=== PATIENT | female | born 1955 | race Caucasian/White ===

== ENCOUNTER 2018-09-18 12:33 | Outpatient (REF) | payer BC, SELFPAY ==
--- NOTE | 2018-09-18 09:36 | PAPFT_PTH ---
PATIENT: Chery Prescott LOC: [facility] U#:[id number] AGE/SX: 63/F ROOM: RE09/18/[address]: Meagan Christine : 1955 BED: DIS: 09/18/2018 SPEC #: [id number] RECD: 09/19/18 13:03 STATUS: MAURICIO ISSA #: [id number] WILI: 09/18/18 09:[address]: Meagan Christine DEPT: [facility], [facility] Cytology RECD BY: Caro Dahl Tissues: 1 - CX/ENDOCX FOR PAP SMEARS Procedures: PAP THIN PREP/UVM Screening HPV DNA PROBE Comments: [id number]
== END 2018-09-18 12:53 ==
LOC: NCHCN 12:33
PROVIDERS: PCP Physician Assistant Medical; Visit Provider Physician Assistant Medical
DX: Z12.4 Encounter for screening for malignant neoplasm of cervix (principal); Z11.51 Encounter for screening for human papillomavirus (HPV)
CPT/HCPCS: 88142; 87624

== ENCOUNTER 2018-10-03 00:48 | Outpatient (CLI) | payer BC, SELFPAY ==
--- NOTE | 2018-10-03 07:55 | DI.MAMMO_ITS ---
SYMPTOM/DIAGNOSIS: SCREENING, Z12.31, [facility], Z00.00 MAMMOGRAMS: Mammograms were interpreted according to the usual protocol including computer analysis with CAD system, tomosynthesis and C view imaging. Comparison is made with exams from 4057-8864. The breasts are composed of heterogeneously dense fibroglandular tissue, breast density, Category C. No suspicious masses or suspicious microcalcifications are seen. There has been no significant change. IMPRESSION: Category 1, negative mammogram. Yearly screening mammography is recommended. [facility] ASSESSMENT OF FINDINGS: Negative. Category 1. Patient will receive a letter notifying them of these results. Bi-RADS category C. The breasts are heterogeneously dense, which may obscure small masses.
== END 2018-10-03 01:08 ==
PROVIDERS: PCP Physician Assistant Medical; Visit Provider Physician Assistant Medical
DX: Z00.00 Encounter for general adult medical examination without abnormal findings (principal); Z12.31 Encounter for screening mammogram for malignant neoplasm of breast
CPT/HCPCS: 77063; 77067

== ENCOUNTER 2018-10-03 01:46 | Outpatient (CLI) | payer BC, SELFPAY ==
[2018-10-03 08:49] LABS: ALT 26 U/L (12-78); AST 20 U/L (15-37); Albumin 3.7 g/dL (3.4-5.0); Alkaline Phosphatase 79 U/L (46-116); Anion Gap 5.9 mmol/L (3-11); Bilirubin, Total 0.6 mg/dL (0.2-1.0); CO2 30.1 mmol/L (21.0-32.0); CREATININE 0.79 mg/dL (0.55-1.02); Calcium 8.6 mg/dL (8.5-10.1); Calculated LDL 171; Chloride 104 mmol/L (98-107); Cholesterol 253 mg/dL (50-200); Glucose 95 mg/dL (70-100); HDL Cholesterol 64 mg/dL (40-60); Potassium 4.9 mmol/L (3.5-5.1); Sodium 140 mmol/L (136-145); Triglyceride 94 mg/dL (30-150)
[2018-10-03 09:08] LABS: BUN 30 mg/dL (7-18)
== END 2018-10-03 02:06 ==
PROVIDERS: PCP Physician Assistant Medical; Visit Provider Physician Assistant Medical
DX: Z00.00 Encounter for general adult medical examination without abnormal findings (principal); Z13.220 Encounter for screening for lipoid disorders; Z13.228 Encounter for screening for other metabolic disorders
CPT/HCPCS: 36415; 80053; 80061; 83721

== ENCOUNTER 2018-10-30 01:50 | Outpatient (CLI) | payer BC, SELFPAY ==
--- NOTE | 2018-10-30 09:00 | NS.NUTBLAN_ITS ---
DESCRIPTION: Jessica Prescott presents for nutrition consult for hypercholesterolemia. Total Cholesterol 253; HDL 64 LDL 171 Jessica reports stable weight even when she quit smoking and through menopause. She eats preventatively fish oil, seeds, nuts, whole grains; rarely eats eggs. She has 1/2 sandwich or pretzels for lunch; salad and protein for supper. She does not like fruit, beef or pork. She has intestinal problems with corn and dairy products and thus rarely eats cheese. Physical Activity includes managing her house and work by mowing and weed wacking herself. She denies stress; takes great sanchez in her grandchildren. ASSESSMENT/INTERVENTION: Discussed cardiovascular risk factors for heart disease and sources of cholesterol and saturated fats. She is already having foods that are high in omega fatty acids; she eats minimal sugar and she is complimented for her prevention efforts. Explained benefits of regular physical activity in decreasing heart disease risks. Reviewed DASH diet for heart disease prevention. Jessica has healthy lifestyle for prevention of heart disease. PLAN: SHe will continue with her current regimen and have increased awareness of the foods that are most beneficial.
== END 2018-10-30 02:10 ==
PROVIDERS: PCP Physician Assistant Medical; Visit Provider Dietitian, Registered
DX: E78.5 Hyperlipidemia, unspecified (principal); Z71.3 Dietary counseling and surveillance
CPT/HCPCS: 97802

== ENCOUNTER 2019-11-01 02:42 | Outpatient (CLI) | payer OTHER, SELFPAY ==
[2019-11-01 09:04] LABS: ALT 30 U/L (14-59); AST 25 U/L (15-37); Alkaline Phosphatase 61 U/L (46-116); Anion Gap 6.4 mmol/L (3-11); BUN 30 mg/dL (7-18); Bilirubin, Total 0.4 mg/dL (0.2-1.0); CO2 30.6 mmol/L (21.0-32.0); CREATININE 0.88 mg/dL (0.55-1.02); Calcium 9.2 mg/dL (8.5-10.1); Calculated LDL 181 mg/dL (<100); Chloride 104 mmol/L (98-107); Cholesterol 267 mg/dL (<200); Glucose 92 mg/dL (74-106); HDL Cholesterol 60 mg/dL (40-60); Potassium 4.5 mmol/L (3.5-5.1); Sodium 141 mmol/L (136-145); Total Protein 7.2 g/dL (6.4-8.2); Triglyceride 134 mg/dL (<150)
== END 2019-11-01 03:02 ==
PROVIDERS: PCP Physician Assistant Medical; Visit Provider Physician Assistant Medical
DX: E78.5 Hyperlipidemia, unspecified (principal); I10 Essential (primary) hypertension
CPT/HCPCS: 36415; 80053; 80061

== ENCOUNTER 2019-11-22 01:19 | Outpatient (CLI) | payer OTHER, SELFPAY ==
--- NOTE | 2019-11-22 16:23 | DI.MAMMO_ITS ---
EXAM: MG MAMMO SCREENING CLINICAL HISTORY: SCREENING, Z12.39,[facility],Z00.00 TECHNIQUE: Mammograms were interpreted according to the usual protocol including computer analysis w [employer] CAD system, tomosynthesis and C-view imaging. COMPARISON: FINDINGS: The breasts heterogeneously dense. No dominant mass clumped microcalcification is identified in eith er breast. The current examination is compared with previous examinations including September 2018 and ere has been no gross interval change in appearance in comparison with the prior studies. IMPRESSION: No specific evidence of malignancy at this time. Routine screening examinations are suggested at yea rly intervals due to the family history of breast carcinoma. Category: BI-RADS Cat 1 - Negative Breast Density - Category C - Heterogeneously dense
== END 2019-11-22 01:39 ==
PROVIDERS: PCP Physician Assistant Medical; Visit Provider Physician Assistant Medical
DX: Z12.31 Encounter for screening mammogram for malignant neoplasm of breast (principal); Z00.00 Encounter for general adult medical examination without abnormal findings; R92.2 Inconclusive mammogram
CPT/HCPCS: 77063; 77067

== ENCOUNTER 2019-11-28 02:07 | Outpatient (CLI) | payer OTHER, SELFPAY ==
--- NOTE | 2019-11-28 | DI.DEXA_ITS ---
EXAM: XR DEXA BONE DENSITY W/WO EMRE CLINICAL HISTORY: [facility],Z00.00 SCREENING FOR OSTEOPOROSIS IN POSTMENOPAUSAL,Z78 TECHNIQUE: COMPARISON: DX DEXA BONE DENSITY WITH EMRE from 07/22/2010 FINDINGS: Lateral Spine Image: Unremarkable. No compression deformities identified. Left hip: Total T-Score: -2.0. Compared with -1.4 on the prior examination. Total Z-Score: -0.8. T- and Z-scores: Findings consistent with osteopenia and increased fracture risk. Lumbar Spine: Total T-Score: 0.1. Compared with -0.6 on the prior examination. Total Z-Score: 1.8. T- and Z-scores: Within normal limits. IMPRESSION: Osteopenia in the left hip.
== END 2019-11-28 02:27 ==
PROVIDERS: PCP Physician Assistant Medical; Visit Provider Physician Assistant Medical
DX: M85.88 Other specified disorders of bone density and structure, other site (principal); Z78.0 Asymptomatic menopausal state; Z00.00 Encounter for general adult medical examination without abnormal findings
CPT/HCPCS: 77080

== ENCOUNTER 2020-01-28 12:00 | Outpatient (REF) | payer OTHER, SELFPAY ==
[2020-01-28 19:20] LABS: ALT 38 U/L (14-59); AST 26 U/L (15-37); Albumin 4.1 g/dL (3.4-5.0); Alkaline Phosphatase 63 U/L (46-116); Anion Gap 7.9 mmol/L (3-11); BUN 26 mg/dL (7-18); Bilirubin, Total 0.6 mg/dL (0.2-1.0); CO2 30.1 mmol/L (21.0-32.0); CREATININE 0.76 mg/dL (0.55-1.02); Calcium 9.1 mg/dL (8.5-10.1); Calculated LDL 111 mg/dL (<100); Chloride 103 mmol/L (98-107); Cholesterol 204 mg/dL (<200); Glucose 98 mg/dL (74-106); HDL Cholesterol 79 mg/dL (40-60); Potassium 4.8 mmol/L (3.5-5.1); Sodium 141 mmol/L (136-145); Total Protein 7.2 g/dL (6.4-8.2); Triglyceride 70 mg/dL (<150)
== END 2020-01-28 12:20 ==
LOC: NCHCN 12:00
PROVIDERS: PCP Physician Assistant Medical; Visit Provider Physician Assistant Medical
DX: E78.5 Hyperlipidemia, unspecified (principal)
CPT/HCPCS: 80053; 80061

== ENCOUNTER 2020-10-29 18:50 | Outpatient (REF) | payer OTHER, SELFPAY ==
--- NOTE | 2020-10-29 17:45 | PAPFT_PTH ---
PATIENT: Chery Prescott LOC: [facility] U#:[id number] AGE/SX: 65/F ROOM: RE10/29/[address]: Meagan Christine : 1955 BED: DIS: 10/29/2020 SPEC #: [id number] RECD: 10/30/20 12:46 STATUS: MAURICIO RELiz #: [id number] WILI: 10/29/20 17:[address]: Meagan Christine DEPT: [facility] Cytology RECD BY: Caro Dahl Tissues: 1 - CX/ENDOCX FOR PAP SMEARS Procedures: PAP THIN PREP/UVM Screening HPV DNA PROBE Comments: [id number]
== END 2020-10-29 18:51 | disposition home or self-care (01) ==
LOC: NCHCN 18:50
PROVIDERS: PCP Physician Assistant Medical; Visit Provider Physician Assistant Medical
DX: Z01.419 Encounter for gynecological examination (general) (routine) without abnormal findings (principal); Z12.4 Encounter for screening for malignant neoplasm of cervix; Z11.51 Encounter for screening for human papillomavirus (HPV); R87.810 Cervical high risk human papillomavirus (HPV) DNA test positive
CPT/HCPCS: 88142; 87624

== ENCOUNTER 2020-11-19 02:29 | Outpatient (CLI) | payer OTHER, SELFPAY ==
--- NOTE | 2020-11-19 | DI.MAMMO_ITS ---
Exam(s) MAMMO SCREENING EXAM: MAMMO SCREENING CLINICAL HISTORY: SCREENING, [facility],Z00.00. TECHNIQUE: Bilateral full field digital CC and MLO mammographic images were obtained with 3D tomosyn thesis and utilizing computer aided detection (CAD). COMPARISON: Prior mammograms dating back to 2011, the most recent being November 2019. Significant family history. Her sister was diagnosed with breast cancer. FINDINGS: The fibroglandular tissue pattern is again noted be moderately dense, this decreasing the sensitivity of the mammogram for finding in underlying lesions. There are no new obvious spiculated masses nor malignant appearing microcalcification groups. There is no significant architectural distortion nor skin thickening-retraction. IMPRESSION: Dense bilateral fibroglandular tissue. No obvious radiographic evidence of malignancy nor significan t change compared to prior studies listed above. BI-RADS Category 1 - Negative Breast Density - Category C - Heterogeneously dense Breast density Category C or D implies that the patient has dense breast tissue. Dense breast tissue can make it harder to find cancer on a mammogram. Dense breast tissue is also associated with an incr eased risk of breast cancer. This information about the result of the mammogram report was provided to the patient to raise their awareness. Use this report when you speak with the patient about their risks for breast cancer, which includes their family history. At that time, you may recommend additional screening tests (Ultrasoun d or MRI) as these tests may add significant information. A negative radiographic report should not delay biopsy if a dominant or clinically suspicious mass is present. Up to ten percent of cancers are not identified on mammography. A negative report may reinforce clinical impression. Adenosis and dense breasts may obscure an underlying neoplasm. False positive reports average 6 to 10%. Patient will receive a letter notifying them of these results.
== END 2020-11-19 02:49 ==
LOC: DI 02:29
PROVIDERS: PCP Physician Assistant Medical; Visit Provider Physician Assistant Medical
DX: Z12.31 Encounter for screening mammogram for malignant neoplasm of breast (principal)
CPT/HCPCS: 77063; 77067

== ENCOUNTER 2020-11-19 03:22 | Outpatient (CLI) | payer OTHER, SELFPAY ==
[2020-11-19 08:13] LABS: ALT 53 U/L (14-59); AST 29 U/L (15-37); Albumin 4.1 g/dL (3.4-5.0); Alkaline Phosphatase 63 U/L (46-116); Anion Gap 7.9 mmol/L (3-11); BUN 35 mg/dL (7-18); Bilirubin, Total 0.4 mg/dL (0.2-1.0); CO2 29.1 mmol/L (21.0-32.0); Calcium 9.3 mg/dL (8.5-10.1); Calculated LDL 138 mg/dL (<100); Chloride 103 mmol/L (98-107); Cholesterol 231 mg/dL (<200); Estimated GFR 55.47 (mL/min/1.73m2); Glucose 93 mg/dL (74-106); HDL Cholesterol 75 mg/dL (40-60); Potassium 4.7 mmol/L (3.5-5.1); Sodium 140 mmol/L (136-145); Total Protein 7.1 g/dL (6.4-8.2); Triglyceride 91 mg/dL (<150)
[2020-11-20 09:40] LABS: Hepatitis C Ab w Rflx HCV PCR Negative (Negative)
== END 2020-11-19 03:23 | disposition home or self-care (01) ==
LOC: LBO 03:22
PROVIDERS: PCP Physician Assistant Medical; Visit Provider Physician Assistant Medical
DX: E78.5 Hyperlipidemia, unspecified (principal); I10 Essential (primary) hypertension
CPT/HCPCS: 36415; 80053; 80061; 86803

== ENCOUNTER → 2021-01-28 03:09 | Outpatient (CLI) | payer MEDICARE, SELFPAY ==
--- NOTE | 2021-01-28 | DI.MRI_ITS ---
Exam(s) MR CERVICAL SPINE WO EXAM: MR CERVICAL SPINE WO CLINICAL HISTORY: CERVICAL SPONDYLOSIS, M47.812 TECHNIQUE: Multiplanar multisequence MRI of the cervical spine was performed without intravenous con trast. COMPARISON: CR CERV SP.WITH OBL OR FLEX/EXT from 04/03/2014 CR CERV SP.WITH OBL OR FLEX/EXT from 04/03/2014 FINDINGS: CERVICOMEDULLARY JUNCTION: Intact with no evidence of cerebellar tonsillar ectopia. No obvious abnor mality of the odontoid process. No evidence of Chiari 1 malformation. CERVICAL SPINAL CORD: There is no abnormal signal in the cervical spinal cord and no evidence of foca l cord atrophy nor focal cord swelling. OSSEOUS:There are no cervical fractures evident. No significant osseous lesions in the cervical vert ebrae. Cervical curvature is maintained. INDIVIDUAL LEVELS: C2-3: No disc herniation nor central canal stenosis. No foraminal stenosis. No facet arthropathy. C3-4: Mild decreased disc height. Bilateral small Luschka joint osteophytes. Annular bulging but wi thout a dominant disc herniation. Central canal dimensions are lower normal. No significant foramin al stenosis nor significant facet arthropathy. There is partial fusion of the left facet joint anter ior aspect. C4-5: Normal disc height. No dominant disc herniation. Central canal dimensions are within normal l imits.Right facet joint appears unremarkable but there is significant degenerative changes in the lef t facet joint with some foraminal stenosis on the left side. No foraminal stenosis on the right side . C5-6: Mild disc space narrowing. No disc herniation. No central canal stenosis. No foraminal steno sis. Mild degenerative changes in the left facet joint. No obvious degenerative changes in the righ t facet joint. C6-7: This level exhibits advanced chronic disc space narrowing and anterior osseous lipping. Fruit [employer] iorly there is annular bulging with a small posterolateral right disc protrusion. There is slight co mpression of the thecal sac at this level. Right facet unremarkable. Mild degenerative changes in t he left facet joint. There is mild bilateral foraminal stenosis C7-T1: No disc herniation nor central canal stenosis. No facet arthropathy.No foraminal stenosis. IMPRESSION: 1. At C6-7 level there is advanced disc space narrowing and small posterolateral right disc protrusio n. 2. There is no prominent central canal stenosis in the cervical spine but there is some asymmetric le ft-sided foraminal stenosis evident at C4-5 and C5-6 levels, this related to degenerative changes in the left facet joint at these 2 levels. Less degenerative change in the right facet joints at these 2 levels. 3. Cervical curvature is maintained. There is no abnormal signal in the cervical spinal cord. No ev idence of focal cord swelling nor focal cord atrophy. DATA REPOSITORY:
== END ==
PROVIDERS: PCP Physician Assistant Medical; Visit Provider Physician Assistant Medical
DX: M47.812 Spondylosis without myelopathy or radiculopathy, cervical region (principal); M48.02 Spinal stenosis, cervical region; M50.223 Other cervical disc displacement at C6-C7 level; M50.321 Other cervical disc degeneration at C4-C5 level; M50.322 Other cervical disc degeneration at C5-C6 level
CPT/HCPCS: 72141

== ENCOUNTER 2021-02-25 02:41 | Outpatient (CLI) | payer MEDICARE, SELFPAY ==
[2021-02-25 09:56] LABS: BUN 25 mg/dL (7-18); CREATININE 0.9 mg/dL (0.55-1.02); Calculated LDL 118 mg/dL (<100); Cholesterol 205 mg/dL (<200); Glucose 94 mg/dL (74-106); HDL Cholesterol 74 mg/dL (40-60); Total Protein 7.2 g/dL (6.4-8.2); Triglyceride 68 mg/dL (<150)
[2021-02-25 09:57] LABS: ALT 42 U/L (14-59); AST 25 U/L (15-37); Alkaline Phosphatase 62 U/L (46-116); Anion Gap 8.8 mmol/L (3-11); Bilirubin, Total 0.3 mg/dL (0.2-1.0); CO2 29.2 mmol/L (21.0-32.0); Chloride 105 mmol/L (98-107); Potassium 4.8 mmol/L (3.5-5.1); Sodium 143 mmol/L (136-145)
== END 2021-02-25 02:42 | disposition home or self-care (01) ==
LOC: LBO 02:41
PROVIDERS: PCP Physician Assistant Medical; Visit Provider Physician Assistant Medical
DX: E78.5 Hyperlipidemia, unspecified (principal)
CPT/HCPCS: 36415; 80053; 80061

== ENCOUNTER 2021-08-06 09:57 | Outpatient (CLI) | payer MEDICARE, SELFPAY ==
--- NOTE | 2021-08-06 06:00 | DI.RAD_ITS ---
Exam(s) XR PAIN CLINIC CERVICAL SP 2V EXAM: XR PAIN CLINIC CERVICAL SP 2V CLINICAL HISTORY: cervical radiculopathy TECHNIQUE: 2D and realtime digital imaging was performed. Radiologist not present. CONTRAST MATERIAL: None. COMPARISON: No exams were available for comparison FINDINGS: Fluoroscopy was provided for pain management therapy. Please refer to procedure report or details. Cumulative dose: Ka,r=1.93 mGy IMPRESSION: RADIATION DOSE DELIVERED:
[2021-08-06 10:05] VITALS: BP 161/82; PULSE 63; RESP 20; TEMP 36.3; O2SAT 100
[2021-08-06] MEDS: Omnipaque 240 MG/ML 50 ML BTL IJ (10:33)
--- NOTE | 2021-08-06 10:36 | PDOC.PAIN_ITS ---
Pain Clinic Procedure Note Procedure Note Procedure Note: Cervical Epidural Steroid Injection Chery Prescott has been referred to the [facility] for interlaminar cervical epidural steroid injection. COMMENTS: I evaluated her in our office on 05/13/21. Her pre-procedure pain VAS was 6/10. Dx: Cervical radiculopathy Patient was interviewed and the medical record reviewed. There were no medical, pharmacologic, radiographic or other structural contraindications to attempting fluoroscopically guided epidural steroid injection. Risks and expected side effects as well as potential benefit of the procedure were reviewed and voiced concerns addressed. The printed consent form was signed and witnessed. Standard time-out procedure was performed. The patient was placed in the prone position on the fluoroscopy table and automated blood pressure cuff and pulse oximeter applied. The skin entry point for entering the epidural space by a midline C7-T1 interlaminar approach was identified under fluoroscopy and marked. Following thorough Chlorhexadine preparation of the skin and draping and 1% lidocaine infiltration of the skin entry point and subcutaneous tissues, an 18 gauge Tuohy needle was placed under fluoroscopic guidance and with loss of resistance technique into the epidural space. Upon needle placement and loss of resistance there were no paresthesiae or return of blood or CSF through the needle. 1ml of Omnipaque 240 were injected with clear epidural spread in the A/P, oblique views. 15mg of preservative-free Dexamethasone with 1ml sterile normal saline were injected through the needle with no unusual discomfort expressed. The needle was removed without difficulty. A bandage was placed. Vital signs were stable throughout the procedure and were as recorded in the docflowsheet by the nursing staff. If given, dosages of intravenous drugs for anxiolysis and analgesia were documented in MAR. Follow up plans and appointments were discussed. Post procedure instruction was given as documented in nursing documentation and having met discharge criteria and was discharged from the [facility]. COMMENTS: Her post-procedure pain VAS was 0/10. If this procedure is effective, it can be completed up to 3 times per 12 months if needed. Silvino Arroyo DO, MPH [facility]-Pain Management [facility] CC: Meagan Christine
[2021-08-06] MEDS: Dexamethasone Sod. Phos./Pres-Free 10 MG/ML VIAL IJ (10:43)
[2021-08-06 10:44] VITALS: BP 139/67; PULSE 67; RESP 23; O2SAT 98
== END 2021-08-06 09:58 | disposition home or self-care (01) ==
LOC: PC 09:58
PROVIDERS: PCP Physician Assistant Medical; Visit Provider Preventive Medicine Occupational Medicine
DX: M54.12 Radiculopathy, cervical region (principal)
CPT/HCPCS: 62321; 72040; Q9967

== ENCOUNTER 2021-11-04 18:14 | Outpatient (REF) | payer MEDICARE, SELFPAY ==
--- NOTE | 2021-11-04 17:30 | PAPFT_PTH ---
PATIENT: [facility]y Prescott [id number] AGE/SX: 66/F ROOM: RE11/04/[address]: Meagan Christine : 1955 BED: DIS: 11/04/2021 SPEC #: [id number] RECD: 11/05/21 12:50 STATUS: MAURICIO RELiz #: [id number] WILI: 11/04/21 17:[address]: Meagan Christine DEPT: [facility] Cytology RECD BY: Caro Dahl Tissues: 1 - CX/ENDOCX FOR PAP SMEARS Procedures: PAP THIN PREP/UVM Screening HPV DNA PROBE Comments: [id number]
[2021-11-04 20:22] LABS: ALT 32 U/L (14-59); AST 24 U/L (15-37); Albumin 4.2 g/dL (3.4-5.0); Alkaline Phosphatase 62 U/L (46-116); Anion Gap 7.9 mmol/L (3-11); BUN 35 mg/dL (7-18); Bilirubin, Total 0.4 mg/dL (0.2-1.0); CO2 30.1 mmol/L (21.0-32.0); CREATININE 0.8 mg/dL (0.55-1.02); Calcium 9.2 mg/dL (8.5-10.1); Calculated LDL 107 mg/dL (<100); Chloride 102 mmol/L (98-107); Cholesterol 228 mg/dL (<200); Glucose 98 mg/dL (74-106); HDL Cholesterol 78 mg/dL (40-60); Sodium 140 mmol/L (136-145); Total Protein 7.7 g/dL (6.4-8.2); Triglyceride 215 mg/dL (<150)
== END 2021-11-04 18:15 | disposition home or self-care (01) ==
LOC: NCHCN 18:14
PROVIDERS: PCP Physician Assistant Medical; Visit Provider Physician Assistant Medical
DX: Z00.00 Encounter for general adult medical examination without abnormal findings; E78.5 Hyperlipidemia, unspecified
CPT/HCPCS: 80053; 80061; 88142; 87624

== ENCOUNTER → 2021-12-09 01:53 | Outpatient (CLI) | payer MEDICARE, SELFPAY ==
--- NOTE | 2021-12-09 08:31 | DI.MAMMO_ITS ---
Exam(s) MAMMO SCREENING EXAM: MAMMO SCREENING CLINICAL HISTORY: SCREENING FOR BREAST CANCER Z12.31. TECHNIQUE: Bilateral full field digital CC and MLO mammographic images were obtained with 3D tomosyn thesis and utilizing computer aided detection (CAD). COMPARISON: Prior mammograms were reviewed, the most recent being November 2020. Significant family history here. Her sister was recently diagnosed with breast cancer. FINDINGS: The fibroglandular tissue pattern is again noted be moderately dense, this somewhat decreasing the se nsitivity mammogram for finding hidden underlying lesions. There has been no significant change in the appearance and distribution of the fibroglandular tissue. There are no new spiculated masses nor malignant appearing microcalcification groups. There is no significant architectural distortion nor skin thickening-retraction. IMPRESSION: Moderately dense fibroglandular tissue. No radiographic evidence of malignancy. Given the density of this patient's fibroglandular tissue and significant family history, I feel that it would be prudent to perform bilateral screening complete breast ultrasound. BI-RADS Category 2 - Benign Findings Breast Density - Category C - Heterogeneously dense Breast density Category C or D implies that the patient has dense breast tissue. Dense breast tissue can make it harder to find cancer on a mammogram. Dense breast tissue is also associated with an incr eased risk of breast cancer. This information about the result of the mammogram report was provided to the patient to raise their awareness. Use this report when you speak with the patient about their risks for breast cancer, which includes their family history. At that time, you may recommend additional screening tests (Ultrasoun d or MRI) as these tests may add significant information. A negative radiographic report should not delay biopsy if a dominant or clinically suspicious mass is present. Up to ten percent of cancers are not identified on mammography. A negative report may reinforce clinical impression. Adenosis and dense breasts may obscure an underlying neoplasm. False positive reports average 6 to 10%. Patient will receive a letter notifying them of these results.
== END ==
PROVIDERS: PCP Physician Assistant Medical; Visit Provider Physician Assistant Medical
DX: Z12.31 Encounter for screening mammogram for malignant neoplasm of breast (principal); R92.8 Other abnormal and inconclusive findings on diagnostic imaging of breast
CPT/HCPCS: 77063; 77067

== ENCOUNTER → 2022-04-01 08:48 | Outpatient (BNVA) | payer MEDICARE, SELFPAY | PROVIDERS: PCP Physician Assistant Medical; Referring Provider Physician Assistant Medical; Visit Provider Physical Therapy Assistant | DX: Z80.0 Family history of malignant neoplasm of digestive organs (principal); Z12.11 Encounter for screening for malignant neoplasm of colon ==

== ENCOUNTER 2022-04-22 06:11 | Day surgery (SDC) | payer MEDICARE, SELFPAY ==
--- NOTE | 2022-04-21 20:58 | W.PM.DSUDISC ---
Date of service: 04/22/22 Time of Service: 08:05 Discharge Plan Disposition Patient Disposition: Home Condition: Good Discharge Details Reason For Visit: Screening colonoscopy Attending Provider: Richard Fiore Primary Care Provider: Meagan Christine Home Meds and New Rx's Prescriptions: Continued latanoprost (PF) 0.005 % drops 1 drp ophthalmic (eye) QPM triamcinolone acetonide 0.1 % cream 1 applic topical BID rosuvastatin [Crestor] 10 mg tablet 10 mg PO DAILY meclizine 25 mg tablet 25 mg PO TID PRN timolol 0.5 % drops 1 drp ophthalmic (eye) DAILY propranolol 10 MG tablet 10 mg PO BID diphenhydramine HCl 12.5 MG/5 ML elixir 25 mg PO HS Qty: 1.5 aspirin [Aspir-81] 81 MG tablet,delayed release (DR/EC) 81 mg PO DAILY calcium carbonate [Calcium 600] 600 MG tablet 1,200 mg PO DAILY ibuprofen 400 MG tablet 400 mg PO BID PRN cholecalciferol (vitamin D3) 1,000 UNIT tablet 1,000 units PO DAILY Fish Oil 1 EACH capsule 1,000 mg PO BID fluoxetine 20 mg capsule 1 cap PO DAILY Label Comments: TAKE 1 CAPSULE BY MOUTH EVERY DAY Discontinued bisacodyl [Dulcolax (bisacodyl)] 5 mg tablet,delayed release (DR/EC) 5 mg PO ONCE Qty: 4 0RF Rx Instructions: Take according to provider's instructions for colonoscopy prep. polyethylene glycol 3350 17 gram/dose powder 17 g PO ONCE Qty: 238 0RF Rx Instructions: To be taken as directed by prescriber's office for colonoscopy prep. No Action multivitamin Tablet 1 tab PO DAILY Discharge Instructions Instructions: Colorectal Polyps (GEN) Additional Instructions: 1. If tolerated, consume a soft, low fiber diet for 1-2 days. 2[address] Do not drive, drink alcohol, operate machinery, make critical decisions, or do activities that require coordination or balance for 24 hours. 3. Because air was put into your colon during the procedure, expelling air from your rectum (passing gas or farting) is normal. 4. You may not have a bowel movement for 1-3 days because of the colonoscopy prep. This is normal. 5. Go directly to the emergency room if you notice any of the following: Develop chills (warm to touch), or if you have a thermometer and your temperature is above 101 Difficulty breathing or difficultly swallowing Persistent vomiting Severe abdominal pain, other than gas cramps Severe chest pain Black, tarry stools Any bleeding ? exceeding one tablespoon 6. Call your physician if the site where your intravenous was started becomes red, swollen, painful, and warm to touch. 7. Your physician has reviewed your pre-procedure medications. Please continue to take those medications as previously ordered. You will be given specific information/education regarding any changes to your medications before leaving. Activity:: Activity as Tolerated Diet:: As Tolerated Discharge Orders Discharge Orders: Discharge Order (Routine); Ordered 04/21/22 Ordered By: Richard Fiore DS: Diagnosis Discharge Diagnosis (1) Screening for colon cancer: Status: Acute Asessment and Plan: From screening colonoscopy today, and the procedure went wonderfully. Your bowel prep was excellent. There was a polyp around 45 cm from your anus, and perhaps much smaller secondary 1 in the same region. Both were removed. He would I have the results of the pathology report.
--- NOTE | 2022-04-21 21:00 | W.COLOREPORT ---
Date of service: 04/22/22 Time of Service: 08:07 Colonoscopy Report Date of procedure: 04/22/22 Pre-op diagnosis general: screening colonoscopy Post-op diagnosis procedure note: other (Colon polyps) Procedure: colonoscopy Surgeon: Richard Fiore Anesthesia Type: General:No Airway Estimated blood loss (mL): 10 Pathology: other (Colon polyp at 45 cm x 2) Complications: None Disposition: same day Indications: Chery is a 66 year old woman with a first degree relative with colon cancer. She is following up with her next screening colonoscopy Prep: Miralax/Dulcolax Procedure Start Time: 07:31 Procedure End Time: 07:54 Retraction Time: 13 Findings: Colon polyp around 45 cm from the anus. Secondary colon polyp at 45 cm Procedure Description: After the induction of monitored anesthetic care, and with the patient in left lateral decubitus position, I began by performing an external anorectal exam.? Perineum and skin were normal, as was the anal verge.? There was no evidence of external hemorrhoids.? Next, I performed a digital rectal exam.? I did not appreciate any abnormal findings.? Next, I advanced a colonoscope into the rectal vault.? I performed retroflexion.? This was normal.? Using insufflation, I then advanced the colonoscope beyond the rectal folds and into the sigmoid colon before advancing towards the cecum.? The quality of the prep was excellent.? The scope was noted to be in the cecum by identification of the ileocecal valve and appendiceal orifice.? I then began withdrawing the colonoscope using repeated irrigation as necessary for full evaluation of the colonic mucosa. Around 45 cm from the anal verge I identified a 0.5 cm polyp. ?It appeared sessile in character. ?I was able to remove this with a cold forcep polypectomy. ?I examined the site, and there was minimal bleeding. Just a few centimeters away, there was a small elevation of the colonic mucosa that may be consistent with another polyp. This was also removed with cold forceps polypectomy and minimal bleeding. Specimens were sent in the same container. Once this was completed, I continued to withdraw the scope and examine the remainder of the colonic mucosa.?Once the scope was withdrawn to the level of the rectum, great care was taken to examine portions of the rectal folds.? Finally, the scope was withdrawn and the patient was brought to the same-day surgery recovery unit as the anesthetic wore off. ?The findings and instructions were shared with the patient prior to discharge.
[2022-04-22 06:34] VITALS: BP 136/90; PULSE 57; RESP 16; TEMP 36.5; O2SAT 99
[2022-04-22] MEDS: Lactated Ringers 1,000 ML 80 ML IV (06:50)
--- NOTE | 2022-04-22 07:03 | W.ANESPRE ---
General Info Date of Service Date Performed: 04/22/22 Height: 5 ft 6.5 in Weight: 62 kg Body Mass Index (BMI): 21.7 Surgical Procedure: Operation Date: 04/22/22 07:35 Proposed Procedure Side Surgeon karrie Fiore MD Meds Allergies and Home Medications Allergies Allergy/AdvReac Type Severity Reaction Status Date / Time corn [[place]] AdvReac Severe severe Unverified 04/22/22 06:27 digestive discomfort Zxrzuze-MAZ-AhC Reductase AdvReac Severe leg pain Unverified 04/22/22 06:27 Inhibitor [Ucsxuuc-Rmn-Qeg Reductase Inhibitor] amoxicillin trihydrate AdvReac Intermediate Diarrhea Unverified 04/22/22 06:27 [From Augmentin] codeine AdvReac Intermediate itching, Unverified 04/22/22 06:27 vomiiting potassium clavulanate AdvReac Intermediate Diarrhea Unverified 04/22/22 06:27 [From Augmentin] sulfamethoxazole AdvReac Intermediate Unverified 04/22/22 06:27 [From Bactrim] trimethoprim [From Bactrim] AdvReac Intermediate Unverified 04/22/22 06:27 Home Medication Medication Instructions Recorded aspirin 81 mg tablet,delayed 81 mg PO DAILY 11/06/13 release (Aspir-) calcium carbonate 600 mg calcium 1,200 mg PO DAILY 11/06/13 (1,500 mg) tablet (Calcium) ibuprofen 400 mg tablet 400 mg PO BID PRN 11/06/13 cholecalciferol (vitamin D3) 25 1,000 units PO DAILY 06/26/14 mcg (1,000 unit) tablet omega-3 fatty acids-fish oil 340 1,000 mg PO BID 06/26/14 mg-1,000 mg capsule (Fish Oil) diphenhydramine HCl 12.5 mg/5 mL 25 mg PO HS #1.5 mL 11/02/16 oral elixir propranolol 10 mg tablet 10 mg PO BID 11/02/16 latanoprost (PF) 0.005 % eye drops 1 drp ophthalmic (eye) QPM 05/06/21 meclizine 25 mg tablet 25 mg PO TID PRN 05/06/21 rosuvastatin 10 mg tablet (Crestor) 10 mg PO DAILY 05/06/21 triamcinolone acetonide 0.1 % 1 applic topical BID 05/06/21 topical cream timolol 0.5 % eye drops 1 drp ophthalmic (eye) DAILY 04/01/22 fluoxetine 20 mg capsule 1 cap PO DAILY 04/21/22 multivitamin 1 tab PO DAILY 04/22/22 Current Visit Medications: Current Medications Generic Name Dose Route Start Last Admin Trade Name Freq PRN Reason Stop Dose Admin Hyoscyamine Sulfate 0.125 mg 04/21/22 21:02 Hyoscyamine 0.125 Mg Sl/Oral/Chew SL DIRECTED PRN Ringer's Solution 1,000 mls @ 80 mls/hr 04/22/22 06:00 IV 05/21/22 23:59 INFUSION [facility], [facility] IV Miscellaneous Supplies 1 each 04/22/22 06:00 Iv Access IV 05/21/22 23:59 DIRECTED RICH Ondansetron HCl 4 mg 04/21/22 21:02 Ondansetron 4 Mg/2 Ml Vial IVP Q4H PRN PRN Nausea / Vomiting Sodium Chloride 0 ml 04/22/22 06:00 Normal Saline Flush 10 Ml Syr IV 05/21/22 23:59 PRN PRN Sodium Chloride 0 ml 04/22/22 06:00 Normal Saline 10 Ml Vial IJ 05/21/22 23:59 DIRECTED PRN Sterile Water 0 ml 04/22/22 06:00 Water,Injection,Sterile 10 Ml Vial IJ 05/21/22 23:59 DIRECTED PRN PFSH Active Problems Active Problems: Problem Status Onset Code Family history of colon cancer Z80.0 Screening for colon cancer Z12.11 Cervical radiculitis M54.12 Medical History Medical History Allergic rhinitis Anxiety disorder Cervical spondylosis Depression Ex-smoker for more than 1 year Family discord Glaucoma Hyperlipidemia Hypertension Palpitations Personal history of COVID-19 Radiculitis Screening for breast cancer Unspecified hearing loss, unspecified ear Vertigo Surgical History Surgical History Colonoscopy - MAC (11/08/16) H/O eye surgery Tobacco Smoking/Tobacco Use Status: Former Tobacco Use Alcohol Alcohol Intake: current Alcohol intake frequency: 0-2 drinks per day Alcohol type: wine Substance Use Substance use: Never Substance use type: does not use Vital Signs and Lab Results Vital Signs Most Recent Vital Signs in EMR: Most Recent Vital Signs Temp Pulse Resp BP Pulse Ox 36.5 C 57 L 16 136/90 99 04/22/22 06:34 04/22/22 06:34 04/22/22 06:34 04/22/22 06:34 04/22/22 06:34 Lab Results Blood Type / Crossmatch: No Data to Display Complete Blood Count: No Data to Display Complete Metabolic Panel: No Data to Display Liver Function Panel: No Data to Display Coagulation Panel: No Data to Display Cardiac Panel: No Data to Display Arterial Blood Gas: No Data to Display Venous Blood Gas: No Data to Display Pancreas Panel: No Data to Display Thyroid Panel: No Data to Display Infectious Disease: No Data to Display Blood Cultures: No Data to Display Toxicology Panel: No Data to Display Anesthesia Assessment and Plan Anesthesia History Personal History: No History of Anesthesia Complications Family History: No Family History of Anesthesia Complications Exercise Tolerance Exercise Tolerance: Metabolic Equivalents>4 Pertinent Negatives Pertinent Negatives: No Symptoms of GERD Cardiac & Pulmonary Exam Cardiac Exam: Normal S1/S2 Heart Sounds Pulmonary Exam: Clear Bilateral Breath Sounds Implantable Cardiac Device Does patient have a Pacemaker or an ICD?: No Airway Exam Known Difficult Airway: No Mallampati Class: 3 Mouth Opening: Normal (> 3cm) Thyromental Distance: Greater than 3 cm Neck Range of Motion: Full ROM Neck Circumference: Normal Teeth Condition: Normal Dentition and Removable Dentures/Plates Upper ASA Classification ASA Score: ASA 2 Emergency Case?: No NPO Status NPO Status: NPO Clears >2 hours, Solids >8 hours Anesthesia Plan Resuscitation Status: Full Code Anesthesia Technique: General Anesthesia Airway Planned: Natural Airway Monitors Used: Standard Monitors
[2022-04-22 07:06] VITALS: BMI 21.7
--- NOTE | 2022-04-22 07:49 | BOWEL_PTH ---
PATIENT: Chery Prescott LOC: [facility] U#:[id number] AGE/SX: 66/F ROOM: RE04/22/[address]: Richard Fiore MD : 1955 BED: DIS: 04/22/2022 SPEC #: [id number] RECD: 04/22/22 12:49 STATUS: MAURICIO RE #: [id number] WILI: 04/22/22 07:[address]: Richard Fiore DEPT: Surgical Specimen RECD BY: Caro Dahl ENTERED: 04/22/22 12:50 SP TYPE: Bowel OTHR DR: Meagan Christine Tissues: 1 - BIOPSY BOWEL Procedures: GROSS AND MICRO LEVEL 4 Comments: [id number]
[2022-04-22 08:03] VITALS: BP 117/64; PULSE 55; RESP 16; TEMP 36.1; O2SAT 99
--- NOTE | 2022-04-22 08:12 | W.ANESPOSTOP ---
Postoperative Evaluation Date, Time and Location Date Performed: 04/22/22 Time Performed: 08:14 Patient Location: Day Surgery Unit Vital Signs Most Recent Imported Vital Signs: Most Recent Vital Signs Temp Pulse Resp BP Pulse Ox 36.1 C L 55 L 16 117/64 99 04/22/22 08:03 04/22/22 08:03 04/22/22 08:03 04/22/22 08:03 04/22/22 08:03 Pain Score Most Recent Pain Score: Most Recent Pain Score Pain Level 0 04/22/22 08:03 Assessment Mental Status: Awake (Alert & Oriented to Patient Baseline) Airway and Respiratory Function: Patent airway with normal (patient baseline) respiratory exam Cardiovascular Function: Hemodynamically Stable Hydration Status: Adequately Hydrated Nausea & Vomiting: No Nausea or Vomiting Pain: Pt. Denies Any Pain Peripheral Nerve Block: Patient did not receive a nerve block
[2022-04-22 08:36] VITALS: BP 142/63; PULSE 58; RESP 16; TEMP 36.2; O2SAT 98
== END 2022-04-22 06:12 | disposition home or self-care (01) ==
PROVIDERS: PCP Physician Assistant Medical; Visit Provider Surgery
PROC: 0DJD8ZZ Inspection of Lower Intestinal Tract, Via Natural or Artificial Opening Endoscopic (ICD-10-PCS; CPT 45378; principal; 2022-04-22 07:30)
DX: Z12.11 Encounter for screening for malignant neoplasm of colon (principal); Z80.0 Family history of malignant neoplasm of digestive organs; K63.5 Polyp of colon
CPT/HCPCS: 45380; 88305

== ENCOUNTER 2022-11-10 18:20 | Outpatient (REF) | payer MEDICARE, SELFPAY ==
[2022-11-10 20:09] LABS: ALT 43 U/L (14-59); AST 32 U/L (15-37); Alkaline Phosphatase 75 U/L (46-116); Anion Gap 6.6 mmol/L (3-11); BUN 32 mg/dL (7-18); Bilirubin, Total 0.4 mg/dL (0.2-1.0); CO2 29.4 mmol/L (21.0-32.0); CREATININE 0.8 mg/dL (0.55-1.02); Calcium 9.2 mg/dL (8.5-10.1); Calculated LDL 110 mg/dL (<100); Chloride 104 mmol/L (98-107); Cholesterol 201 mg/dL (<200); Estimated GFR 80.21 (mL/min/1.73m2); Glucose 96 mg/dL (74-106); HDL Cholesterol 77 mg/dL (40-60); Potassium 4.1 mmol/L (3.5-5.1); Sodium 140 mmol/L (136-145); Total Protein 7.4 g/dL (6.4-8.2); Triglyceride 71 mg/dL (<150)
== END 2022-11-10 18:21 | disposition home or self-care (01) ==
LOC: NCHCN 18:20
PROVIDERS: PCP Physician Assistant Medical; Visit Provider Physician Assistant Medical
DX: I10 Essential (primary) hypertension (principal); E78.5 Hyperlipidemia, unspecified
CPT/HCPCS: 80053; 80061

== ENCOUNTER → 2022-12-21 02:00 | Outpatient (CLI) | payer MEDICARE, SELFPAY ==
--- NOTE | 2022-12-21 | DI.MAMMO_ITS ---
Exam(s) MAMMO SCREENING EXAM: MAMMO SCREENING CLINICAL HISTORY: SCREENING, Z12.31. TECHNIQUE: Bilateral full field digital CC and MLO mammographic images were obtained with 3D tomosyn thesis and utilizing computer aided detection (CAD). COMPARISON: Prior mammograms were reviewed. Sister diagnosed with breast cancer. FINDINGS: The fibroglandular tissue pattern is again noted be moderately dense, this somewhat decreasing the se nsitivity of the mammogram for finding hidden underlying lesions. There are no obvious new spiculated masses nor malignant appearing microcalcification groups. There is no significant architectural distortion nor skin thickening-retraction. IMPRESSION: Moderately dense fibroglandular tissue. No obvious radiographic evidence. BI-RADS Category 1 - Negative Breast Density - Category C - Heterogeneously dense Breast density Category C or D implies that the patient has dense breast tissue. Dense breast tissue can make it harder to find cancer on a mammogram. Dense breast tissue is also associated with an incr eased risk of breast cancer. This information about the result of the mammogram report was provided to the patient to raise their awareness. Use this report when you speak with the patient about their risks for breast cancer, which includes their family history. At that time, you may recommend additional screening tests (Ultrasoun d or MRI) as these tests may add significant information. A negative radiographic report should not delay biopsy if a dominant or clinically suspicious mass is present. Up to ten percent of cancers are not identified on mammography. A negative report may reinforce clinical impression. Adenosis and dense breasts may obscure an underlying neoplasm. False positive reports average 6 to 10%. Patient will receive a letter notifying them of these results.
== END ==
PROVIDERS: PCP Physician Assistant Medical; Visit Provider Physician Assistant Medical
DX: Z12.31 Encounter for screening mammogram for malignant neoplasm of breast (principal)
CPT/HCPCS: 77063; 77067

== ENCOUNTER 2023-07-12 20:46 | Outpatient (REF) | payer MEDICARE, SELFPAY ==
[2023-07-12 18:49] LABS: BUN 26 mg/dL (7-18); CREATININE 0.8 mg/dL (0.55-1.02); Calcium 9.2 mg/dL (8.5-10.1); Chloride 103 mmol/L (98-107); Estimated GFR 80.21 (mL/min/1.73m2); Glucose 102 mg/dL (74-106); Potassium 4.2 mmol/L (3.5-5.1); Sodium 141 mmol/L (136-145)
== END 2023-07-12 20:47 | disposition home or self-care (01) ==
LOC: NCHCN 20:46
PROVIDERS: PCP Physician Assistant Medical; Referring Provider Physician Assistant Medical; Visit Provider Physician Assistant Medical
DX: I10 Essential (primary) hypertension (principal)
CPT/HCPCS: 80048

== ENCOUNTER 2023-11-22 19:15 | Outpatient (REF) | payer MEDICARE, SELFPAY ==
--- OUTSIDE RECORDS SUMMARY | 2023-11-22 19:16 | XMS_ITS | Encounter Summary ---
Author Organization [facility] Address [address] [place] [address] Care Team Providers Care Latcher Name Role Phone Unavailable Primary Care Provider Unavailabl e Encounter Details Date Type Department Care Team (Late st Contact Info) Description 02/28/2008 Before PRISM Converted Visit (Maple) [facility] Adult Primary Care - [address] [phone] Katerina Braga, QUALITY SYSTEMS TECHNICIAN [address] [place] [id number] Social History Tobacco Use Types Packs/Day Years Used Date Smoking Tobacco: Never Assessed Sex and Gender Information Value Date Recorded Sex Assigned at Not on file Gender Identity Not on file Sexual Orientation Not on file documented as of this encounter Plan of Treatment Not on file documented as of this encounter Procedures Procedure Name Priority Date/Time Associated Diagnosis Comments HPV DETECTION, HIGH RISK TYPES Routine 02/28/2008 8:54 EST CYTOPATHOLOGY Routine 02/28/2008 0:00 EST documented in this encounter Results * HUMAN PAPILLOMA VIRUS DNA TEST (02/28/2008 8:54 EST) Specimen Description Cervix, ThinPrep vial [facility] Result Negative for HPV types 16, 18, 31, 33, 35, 39, 45, 51, 52, 56, 58, 59, and 68. [facility] Report Status Final 03/21/2008 [facility] 02/28/2008 8:54 EST 03/13/2008 8:54 EST Katerina P Arsen QUALITY SYSTEMS TECHNICIAN MICROBIOLOGY - GENER AL ORDERABLES [facility] [address] [place] [address] * CYTOPATHOLOGY (02/28/2008 0:00 EST) Pathology Report: CYTOPATHOLOGY REPORT ? Reports generated via electronic interface contain original data; ? however they are lacking the format of the original report. ? Caution should be taken when reading/interpreti ng unformatted reports. ? Name: ? REJI SMITH ? Accession #: ? [id number] ? : ? 1955 (Age: 52) ??F ?Collect Date: ? 02/28/2008 ? Location: ? [facility] ? Receive Date: ? 02/29/2008 ? Provider: ?KATERINA ARSEN KEEPER HELPER ? Copy to: ? Specimen/Source: ?Pap Test, Endocervix, ThinPrep Imaging System with ? manual evaluation ? Last Menstrual Period: ? IT APPLICATIONS MANAGER ? Previous Gynecologic Pathology: ? Carcinoma: Vulvar ? Other: ? HPVDX - HPV testing requested regardless of diagnosis on current ThinPrep Pap ?? test. ? SPECIMEN ADEQUACY ? Satisfactory for Evaluation ? - transformation zone component present ? - scant squamous epithelial component secondary to excessive inflammation ? GENERAL CATEGORIZATION ? Negative for Intraepithelial Lesion or Malignancy ? Document reviewed and electronically signed by: ? Ivelisse Celeste, CT(ASCP) ? Report Date: ??03/12/2008 13:18 ? End of Report ? [facility] 02/28/2008 02/29/2008 Katerina P Arsen QUALITY SYSTEMS TECHNICIAN PATHOLOGY ORDERABLES Performing Organization Address City/State/[facility] Co de Phone Number [facility] [address] [place] [address] documented in this encounter Visit Diagnoses Not on filedocumented in this encounter
--- OUTSIDE RECORDS SUMMARY | 2023-11-22 19:16 | XMS_ITS | Encounter Summary ---
Author Organization [facility] Address [address] [place] [address] Care Team Providers Care Sterilization Technician Name Role Phone Unknown, Provider Primary Care Provider [phone] Encounter Details Date Type Department Care Team (Latest Contact Info) Description 11/06/2013 13:03 EDT - 11/06/2013 23:59 EDT Hospital Encounter [address] [id number] Unknown, Provider, Discharge Disposition: Home or Self Care Social History Tobacco Use Types Packs/Day Years Used Date Smoking Tobacco: Never Assessed Sex and Gender Information Value Date Recorded Sex Assigned at Not on file Gender Identity Not on file Sexual Orientation Not on file documented as of this encounter Discharge Disposition Disposition Code Departure Means Destination Home or Self [facility]dc documented in this encounter Plan of Treatment Not on file documented as of this encounter Visit Diagnoses Not on filedocumented in this encounter Care Teams Sterilization Technician Relationship Specialty Start Date End Date Unknown, Provider, PCP - General 06/17/10 04/17/22 documented as of this encounter
--- OUTSIDE RECORDS SUMMARY | 2023-11-22 19:16 | XMS_ITS | Encounter Summary ---
Author Organization [facility] Address [address] [place] [address] Care Team Providers Care International Marketing Coordinator Name Role Phone Unavailable Primary Care Provider Unavailabl e Encounter Details Date Type Department Care Team (Late st Contact Info) Description 02/08/2007 Results Only [facility] - Maple conversion [address] [place] [address] Katerina Leger, SYSTEMS COORDINATOR [address] [place] [phone] Social History Tobacco Use Types Packs/Day Years Used Date Smoking Tobacco: Never Assessed Sex and Gender Information Value Date Recorded Sex Assigned at Not on file Gender Identity Not on file Sexual Orientation Not on file documented as of this encounter Plan of Treatment Not on file documented as of this encounter Procedures Procedure Name Priority Date/Time Associated Diagnosis Comments CYTOPATHOLOGY Routine 02/08/2007 0:00 EDT documented in this encounter Results * CYTOPATHOLOGY (02/08/2007 0:00 EDT) Pathology Report: CYTOPATHOLOGY REPORT Reports generated via electronic interface contain original data; however they are lacking the format of the original report. Caution should be taken when reading/interpreti ng unformatted reports. Name: ? LUIS REJI Hilario ? Accession #: ? [id number] : ? 1955 (Age: 51) ??F ?Collect Date: ? 02/08/2007 Location: ? [facility] ? Receive Date: ? 02/09/2007 Provider: ?KATERINA LEGER PARAFFIN PLANT SWEATER OPERATOR Copy to: ? Specimen/Source: ?ThinPrep Pap Test, Endocervix, processed on [employer] ThinPrep Imaging System, with manual evaluation Last Menstrual Period: ? 07/23 Other: ? Additional clinical information: Yes to CORRECTIONAL FOOD SERVICE SUPERVISOR Clinical/Treatment History, Vulvar CA HPVA - HPV testing requested if ASC-US on the current ThinPrep Pap test. ? SPECIMEN ADEQUACY ? Satisfactory for Evaluation - assessment of transformation zone component not applicable ( e.g. atrophy, vaginal sample, hysterectomy) GENERAL CATEGORIZATION ? Negative for Intraepithelial Lesion or Malignancy ? Document reviewed and electronically signed by: ? Jil Nj, SCT(ASCP) ? Report Date: ??02/10/2007 15:43 End of Report [facility] 02/08/2007 02/09/2007 Katerina Leger SYSTEMS COORDINATOR PATHOLOGY ORDERABLES Performing Organization Address City/State/[facility] Co de Phone Number [facility] [address] [place] [address] documented in this encounter Visit Diagnoses Not on filedocumented in this encounter
--- OUTSIDE RECORDS SUMMARY | 2023-11-22 19:16 | XMS_ITS | Clinical Summary ---
Author Organization [facility] Address [facility] [place] [address] Care Team Providers Care Director Of Brand Marketing Name Role Phone Unknown Primary Care Provider Unavailabl e Allergies Active Allergy Reactions Criticality Noted Date Comments Codeine Phosphate CIS - Vomiting, pruritis Medications Medication Sig Dispensed Refills Start Date End Date Status CALCIUM ORAL 05/11/2006 Active ibuprofen (ADVIL;MOTRIN) 200 mg tablet 05/11/2006 Active aspirin (BABY ASPIRIN) 81 mg chewable tablet 05/11/2006 Active Corona-3 Fatty Acids-Vitamin E (OMEGA-3 FISH OIL) 1,000-5 mg-unit Cap 05/11/2006 Activ e meclizine (ANTIVERT) 25 mg tablet 05/11/2006 Active latanoprost (XALATAN) 0.005 % Drops 02/20/2018 Active metroNIDAZOLE 1 % Gel with Pump APPLY TOPICALLY TO AFFECTED AREA TWICE A DAY 0 12/07/2017 Active propranolol (INDERAL) 10 mg Tablet take 1 tablet by mouth twice a day 0 02/15/2018 Active timolol (TIMOPTIC) 0.5 % Drops 1 02/18/2018 Active triamcinolone (KENALOG) 0.1 % Cream 0 02/18/2018 Act mai FLUoxetine (PROZAC) 20 mg Capsule 0 02/18/2018 Active Immunizations Name Administration Dates Next Due TD Adult 04/18/2003 Social History Tobacco Use Types Packs/Day Years Used Date Smoking Tobacco: Never Smokeless Tobacco: Never Sex and Gender Information Value Date Recorded Sex Assigned at Not on file Gender Identity Not on file Sexual Orientation Not on file Plan of Treatment Health Maintenance Due Date Last Done Comments CT Colonography 1955 Colonoscopy 1955 Colorectal Cancer Screening 1955 FIT DNA 1955 FIT 1955 Sigmoidoscopy (10 year) with FIT yearly 1955 Sigmoidoscopy 1955 Hepatitis C Screening 1972 Tdap adult 1973 Breast Cancer Share Decision Needed 1994 Breast Cancer screening 1994 Zoster vaccine (1 of 2) 2004 Advance Directive 2009 Tetanus vaccine 04/18/2013 04/18/2003 Bone Density Scan 08/18/2019 Pneumoccocal Vaccine: 65+ (1 of 1 - PCV) 08/18/2019 Covid-19 Vaccine (1 - 2022-24 season) 2022 Influenza (Flu) vaccine (1 o f 1 - Influenza standard series) 12/18/2023 Advance Directives Documents on File Type Date Recorded Patient Wagon Winder Expl anation Advance Directives and Aly blankenship Will 06/17/2010 8:30 AM Care Teams Director Of Brand Marketing Relationship Specialty Start Date End Date Unknown None PCP - General 12/05/19
--- OUTSIDE RECORDS SUMMARY | 2023-11-22 19:16 | XMS_ITS | Referral Summary ---
Author Organization [facility] Address [address] [place] [address] Care Team Providers Care Twister In Name Role Phone Meagan Christine PA-C Primary Care Provider + Social History Tobacco Use Types Packs/Day Years Used Date Smoking Tobacco: Never Assessed Sex and Gender Information Value Date Recorded Sex Assigned at Not on file Gender Identity Not on file Sexual Orientation Not on file Plan of Treatment Not on file Procedures Procedure Name Priority Date/Time Associated Diagnosis Comments HEPATITIS C AB W REFLEX TO HCV RNA BY PCR Routine 11/19/2020 7:17 EDT from Last 3 Months or Most Recently Relevant to Health Maintenance Results * HEPATITIS C AB W REFLEX TO HCV RNA BY PCR (11/19/2020 7:17 EDT) Hep C Antibody Negative Negative 11/20/2020 9:36 EDT [facility] Blood VENOUS BLOOD / Unknown 11/19/2020 7:17 EDT 11/19/2020 15:33 EDT Provider Outr Resulting Lab CHEMISTRY & BLOOD GAS ORDERABLES [facility] [address] [place] [address] from Last 3 Months or Most Recently Relevant to Health Maintenance Care Teams Twister In Relationship Specialty Start Date End Date Meagan Christine PA-C [address] [place] [phone] PCP - General 04/18/22
--- OUTSIDE RECORDS SUMMARY | 2023-11-22 19:16 | XMS_ITS | Encounter Summary ---
Author Organization [facility] Address [address] [place] [address] Care Team Providers Care Broiler Supervisor Name Role Phone Unavailable Primary Care Provider Unavailabl e Encounter Details Date Type Department Care Team (Late st Contact Info) Description 06/15/2010 Results Only [facility] - [facility] ([facility] [address] [place], [place] [address] Tj Schumacher MD [address] [place] [address] Social History Tobacco Use Types Packs/Day Years Used Date Smoking Tobacco: Never Assessed Sex and Gender Information Value Date Recorded Sex Assigned at Not on file Gender Identity Not on file Sexual Orientation Not on file documented as of this encounter Plan of Treatment Not on file documented as of this encounter Procedures Procedure Name Priority Date/Time Associated Diagnosis Comments SURGICAL PATHOLOGY Routine 06/15/2010 0:00 EST documented in this encounter Results * SURGICAL PATHOLOGY (06/15/2010 0:00 EST) Pathology Report: SURGICAL PATHOLOGY REPORT ? Reports generated via electronic interface contain original data; ? however they are lacking the format of the original report. ? Caution should be taken when reading/interpreti ng unformatted reports. ? Name: ? LUIS, REJI J ? Accession #: ? [id number] ? : ? 1955 (Age: 54) ??F ? Collect Date: ? 06/15/2010 ? Location: ? [facility] ? Receive Date: ? 06/16/2010 ? Provider: TJ WALKO MD ? Copy to: TANA READY MD ? Final Pathologic Diagnosis: ? A. ?Colon, sigmoid, polyp, biopsy: ? 1. ?? Tubular adenoma. ? B. ?? Rectum, random, biopsies: ? 1. ?? Focal active proctitis. ??See comment. ? Comment: ? The biopsy from the rectum shows focal superficial acute inflammation. ? There is no evidence of chronicity and no granulomas. ??The findings could ? represent self-limited/infec tious colitis versus possible prep effect. ??(. ? Nirali/zully ? Document reviewed and electronically signed by: ? SOM PEARSON MD ? Report ??Date: 06/18/2010 17:26 ? By the signature above, the attending physician certifies that he/she has ? personally conducted a gross and/or microscopic examination of the described ? specimens and rendered or confirmed the above diagnosis. ? Specimen(s) Received: ? A. ?Sigmoid polyp (#1) ? B. ? Random rectal bx (#2) ? Clinical History: ? H/O adenoma ? Gross Description: ? [facility] Reji [facility] and 1 ? sigmoid colon polyp is a 0.6 x 0.2 x 0.2 cm polypoid biopsy. ??The specimen is ?? submitted intact as (A). ? [facility] Reji Prescott and 2 ??random ? rectal bx are two biopsies which vary in size from 0.2 x 0.2 x 0.2 cm up to 0.4 x 0.3 x 0.2 cm. ??The specimens are submitted intact as (B). ??(ALLYSSA Wolf/kate ? End of Report ? [facility] 06/15/2010 06/16/2010 8:3 2 EST Tj Schumacher MD PATHOLOGY ORDERABLES [facility] [address] [place] [address] documented in this encounter Visit Diagnoses Not on filedocumented in this encounter
--- OUTSIDE RECORDS SUMMARY | 2023-11-22 19:16 | XMS_ITS | Encounter Summary ---
Author Organization [facility] Address [address] [place] [address] Care Team Providers Care Corporate Statistical Financial Analyst Name Role Phone Nanci Meagan Watson PA-C Primary Care Provider + Encounter Details Date Type Department Care Team (Late st Contact Info) Description 04/22/2022 Lab Requisition [facility] Pathology & Laboratory Medicine - [address] [address] Richard Fiore MD [address] [place] [address], [address] [place], [place] [id number] Encounter for screening for malignant neoplasm of colon Social History Tobacco Use Types Packs/Day Years Used Date Smoking Tobacco: Never Assessed Sex and Gender Information Value Date Recorded Sex Assigned at Not on file Gender Identity Not on file Sexual Orientation Not on file documented as of this encounter Plan of Treatment Not on file documented as of this encounter Procedures Procedure Name Priority Date/Time Associated Diagnosis Comments SURGICAL PATHOLOGY Today 04/22/2022 7:49 EST Encounter for screening for malignant neoplasm of colon documented in this encounter Results * SURGICAL PATHOLOGY (04/22/2022 7:49 EST) Note to Patient The following pathology results have been interpreted by your pathologist and may be available to you before your health provider has had the opportunity to review them. Please allow time for your provider to receive these results and explore management options, if applicable. 04/23/2022 16:27 EST [facility] Final Diagnosis A. COLON, 45 CM, POLYP X2: Tubular adenoma. 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 04/23/2022 16:27 [facility] Attestation By the signature below, the attending physician certifies that they have 1) personally conducted a gross and/or microscopic examination of the described specimen(s), and/or personally interpreted the results of laboratory testing of the described specimen(s), and 2) personally rendered or confirmed the above diagnosis. 04/23/2022 16:27 [facility] at 1627 Clinical History Family hx of colon cancer; colon cancer screening 04/23/2022 16:27 [facility] Gross Description A. Received in formalin labelled with proper patient identification (initials R, P) and polyp at 45 cm x2 are two gruber tissues (0.5 x 0.1 x 0.1 cm and 0.3 x 0.2 x 0.1 cm). Entirely submitted in A1. VIANNEY MCGREGOR 04/23/2022 7:41 04/23/2022 16:27 [facility] Performing Lab [facility] 04/23/2022 16:27 [facility] Scanned Images 04/23/2022 16:27 [facility] Tissue ENTIRE COLON / Unknown 04/22/2022 7:49 EST 04/22/2022 19:38 EST Richard Fiore MD PATHOLOGY ORDERABLES [facility] [address] [place] [address] documented in this encounter Visit Diagnoses Diagnosis Encounter for screening for malignant neoplasm of colon Special screening for malignant neoplasms, colon documented in this encounter Care Teams Corporate Statistical Financial Analyst Relationship Specialty Start Date End Date Meagan Christine PA-C [address] [place] [address] PCP - General 04/18/22 documented as of this encounter
--- OUTSIDE RECORDS SUMMARY | 2023-11-22 19:16 | XMS_ITS | Encounter Summary ---
Author Organization [facility] Address [address] [place] [address] Care Team Providers Care Reinforcement Maker Name Role Phone Unknown, Provider Primary Care Provider [phone] Meagan Christine PA-C Primary Care Provider + Encounter Details Date Type Department Care Team (Late st Contact Info) Description 11/19/2020 Lab Requisition [place] Pathology & Laboratory Medicine - [address] [address] Outr Resulting Lab, Provider Social History Tobacco Use Types Packs/Day Years [...] RNA BY PCR Routine 11/19/2020 7:17 EDT documented in this encounter Results * HEPATITIS C AB W REFLEX TO HCV RNA BY PCR (11/19/2020 7:17 EDT) Hep C Antibody Negative Negative 11/20/2020 9:36 EDT [facility] Blood VENOUS BLOOD / Unknown 11/19/2020 7:17 EDT 11/19/2020 15:33 EDT Provider Outr Resulting Lab CHEMISTRY & BLOOD GAS ORDERABLES [facility] [address] [place] [address] documented in this encounter Visit Diagnoses Not on filedocumented in this encounter Care Teams Reinforcement Maker Relationship Specialty Start Date End Date Unknown, Provider, PCP - General 06/17/10 04/17/22 Meagan Christine PA-C [address] [place] [phone] PCP - General 04/18/22 documented as of this encounter
--- OUTSIDE RECORDS SUMMARY | 2023-11-22 19:16 | XMS_ITS | Encounter Summary ---
Author Organization [facility] [place] [address] Care Team Providers Care Kidney Puller Name Role Phone Unknown Primary Care Provider Unavailabl e Encounter Details Date Type Department Care Team ([facility] st Contact Info) Description 10/02/2003 Orders Only Lab [facility] [place] [address] Raul Renteria MD [place], [place] Social History Tobacco Use Types Packs/Day Years Used Date Smoking Tobacco: Never Assessed Sex and Gender Information Value Date Recorded Sex Assigned at Not on file Gender Identity Not on file Sexual Orientation Not on file documented as of this encounter Plan of Treatment Not on file documented as of this encounter Procedures Procedure Name Priority Date/Time Associated Diagnosis Comments SURGICAL PATHOLOGY REPORT Routine 10/02/2003 8:37 PM EDT documented in this encounter Results * Surgical Pathology Report (10/02/2003 8:37 PM EDT) Surgical Pathology Report [id number] ? Location: The signing pathologist has (i) examined the relevant preparation(s) for the specimen(s) and (ii) rendered or confirmed the diagnosis(es). . ?Pathology Surgical Pathology Final Report Clinical Information Specimen Submitted: A - 3 mm punch bx., vulva Clinical History: 48 y.o.f., hx. vulvar ca. 1984, recurrent erythema of vulva; vulvar ca. (recurrent) Gross Description Labeled/Fixative : ? Labeled with the patient's name, formalin. Qty/Size/Weight: ?Single, 0.4 x 0.2 x 0.1 cm. Tissue Description: ?? Irregular fragment of gruber-brown tissue. Sections/Process ing: ??(T1) ??aje/EJR Microscopic Description Slides reviewed, microscopic description not recorded. Diagnosis Punch biopsy of skin, labeled vulva, not otherwise specified: ?? Hyperkeratosis. ?? Focal mild chronic inflammation and focal fibrosis. ?? A rare focus of rare mildly atypical cells. ??(see Comment) CR-0 10/07/03 AJE 10/08/03 Verified by: ? Stefan Christianson MD ?Pathologist ?(Electronic Signature) The attending pathologist whose signature appears on this report has reviewed all diagnostic slides and has edited the gross and/or microscopic portion of the report in rendering the final pathologic diagnosis. Comment No changes conclusive for dysplasia identified. No malignancy identified. Features appear nonspecific. Clinical correlation is suggested. BLAISE SEGUNDO 10/02/2003 8:37 PM EDT Raul Renteria MD PATHOLOGY/CYTOLOGY O RDERAJEREMIAH BLAISE SEGUNDO documented in this encounter Visit Diagnoses Not on filedocumented in this encounter Care Teams Kidney Puller Relationship Specialty Start Date End Date Unknown None PCP - General 12/05/19 documented as of this encounter
--- OUTSIDE RECORDS SUMMARY | 2023-11-22 19:16 | XMS_ITS | Encounter Summary ---
Author Organization [facility] Address [address] [place] [address] Care Team Providers Care Playground Aide Name Role Phone Unknown, Provider Primary Care Provider Encounter Details Date Type Department Care Team ([facility] st Contact Info) Description 07/02/[address] [facility] Laboratory Services - [facility] ([facility] [address] [place] [address] Meagan Christine PA-C [address] [place] [phone] Social History Tobacco Use Types Packs/Day Years Used Date Smoking Tobacco: Never Assessed Sex and Gender Information Value Date Recorded Sex Assigned at Not on file Gender Identity Not on file Sexual Orientation Not on file documented as of this encounter Plan of Treatment Not on file documented as of this encounter Procedures Procedure Name Priority Date/Time Associated Diagnosis Comments PAP TEST- RESULT ONLY Routine 07/02/2013 0:00 EDT documented in this encounter Results * PAP TEST- RESULT ONLY (07/02/2013 0:00 EDT) Pathology Report: CYTOPATHOLOGY REPORT Reports generated via electronic interface contain original data; however they are lacking the format of the original report. Caution should be taken when reading/interpreti ng unformatted reports. Name: ? LUIS REJI Yanelis ? Accession #: ? [id number] ? : ? 1955 (Age: 57) ??F ?Collect Date: ? 07/02/2013 ? Location: ? [facility] ? Receive Date: ? 07/03/2013 ? Provider: MEAGAN WILLIS Copy to: ? Final Report SPECIMEN ADEQUACY ? Satisfactory for Evaluation - assessment of transformation zone component not applicable ( e.g. atrophy, vaginal sample, hysterectomy) GENERAL CATEGORIZATION ? Negative for Intraepithelial Lesion or Malignancy ?? Last Menstrual Period: 49 Years old Previous Gynecologic Pathology: Yes: Condyloma Treatment History: Miscellaneous treatment: Vulval reconstruction Specimen/Source: ??Pap Test, Cervix/Endocervix, ThinPrep Imaging System with manual evaluation Document reviewed and electronically signed by: ? CHRISTOPH Hendrix(ASCP) ? Report ??Date: 07/05/2013 16:09 HPV with Pap Test ? Date Ordered: ? 07/05/2013 ? Status: ?? Signed Out ?Date Complete: ? 07/09/2013 ? By: ??System Interface ? Date Reported: ? 07/09/2013 ? Interpretation RESULT: Negative for HPV. No E6 or E7 mRNA is detected from HPV types 16,18,31,33,35, 39,45,51,52,56,58, 59,66, and 68 by traffic analysis technician mediated amplification. Comments Document reviewed and electronically signed by: ? System Interface ? Report date: 07/09/2013 By the signature above, the attending physician certifies that he/she has personally conducted a gross and/or microscopic examination of the described specimens and rendered or confirmed the above diagnosis. End of Report [facility] 07/02/2013 07/03/2013 Meagan Christine PA-C PATHOLOGY ORDERA BLES [facility] [address] [place] [address] documented in this encounter Visit Diagnoses Not on filedocumented in this encounter Care Teams Playground Aide Relationship Specialty Start Date End Date Unknown, Provider, PCP - General 06/17/10 04/17/22 documented as of this encounter
--- OUTSIDE RECORDS SUMMARY | 2023-11-22 19:16 | XMS_ITS | Clinical Summary ---
Author Organization [facility] Address [address] [place] [address] Care Team Providers Care Office Machine Mechanic Name Role Phone Meagan Christine PA-C Primary Care Provider + Social History Tobacco Use Types Packs/Day Years Used Date Smoking Tobacco: Never Assessed Sex and Gender Information Value Date Recorded Sex Assigned at Not on file Gender Identity Not on file Sexual Orientation Not on file Plan of Treatment Health Maintenance Due Date Last Done Comments RSV Immunization ( o r 60+ Years) (1 - 1-dose 60+ series) 2014 Fall Risk Screening 08/18/2019 COVID-19 Vaccine ( season) 2022 Hepatitis C Screen Completed 11/19/2020 Procedures Procedure Name Priority Date/Time Associated Diagnosis Comments HEPATITIS C AB W REFLEX TO HCV RNA BY PCR Routine 11/19/2020 7:17 EDT from Last 3 Months or Most Recently Relevant to Health Maintenance Results * HEPATITIS C AB W REFLEX TO HCV RNA BY PCR (11/19/2020 7:17 EDT) Hep C Antibody Negative Negative 11/20/2020 9:36 EDT [facility] Blood VENOUS BLOOD / Unknown 11/19/2020 7:17 EDT 11/19/2020 15:33 EDT Provider Outr Resulting Lab CHEMISTRY & BLOOD GAS ORDERABLES [facility] [address] [place] [address] from Last 3 Months or Most Recently Relevant to Health Maintenance Care Teams Office Machine Mechanic Relationship Specialty Start Date End Date Meagan Christine PA-C [address] [place] [phone] PCP - General 04/18/22
--- OUTSIDE RECORDS SUMMARY | 2023-11-22 19:16 | XMS_ITS | Encounter Summary ---
Author Organization [facility] Address [facility] [place] [address] Care Team Providers Care Craft Worker Name Role Phone Meagan Christine Primary Care Provider [phone] Reason for Visit * Reason Comments Skin Lesion * Consultation (Routine) - Specialty Diagnoses / Procedures Referred By Contpatrice t Referred To Contact Dermatology Diagnoses FACIAL SKIN LESION Meagan Christine PA [address] [place] [address] [facility] Dermatology [address] [place] [address] Referral ID Status Reason Start Date Expiration Date V isits Requested Visits Authorized [id number] Consult, Test & Treat Connection [facility] 01/23/2018 01/23/2019 6 6 Encounter Details Date Type Department Care Team ([facility] Contact Info) Description 03/13/2018 1:00 PM EST Office Visit Dermatology at [facility] [address] [place] [address] Kenzie Young MD [facility] [place] [address] Lentigines; SK (seborrheic keratosis); Seborrheic keratosis, inflamed; Spider veins; Sebaceous hyperplasia; Acne rosacea Social History Tobacco Use Types Packs/Day Years Used Date Smoking Tobacco: Never Smokeless Tobacco: Never Sex and Gender Information Value Date Recorded Sex Assigned at Not on file Gender Identity Not on file Sexual Orientation Not on file documented as of this encounter Progress Notes * Cuca Zaman, FABRIC AND ACCESSORIES ESTIMATOR - 03/13/2018 1:00 PM EST DERMATOLOGY CONSULT NOTE Date of service: 03/13/2018 Chery Prescott : 1955 Provider: Kenzie Young MD Preferred name: Chery Preferred contact method with results: Cell Message okay: yes PROBLEM: areas on face The patient is seen at the request of Meagan Christine, who instructed the patient to be seen for evaluation of above. SKIN HISTORY: Denies any history of skin cancer History of acne HPI Ms. Prescott is a 62 y.o. year old female. New patient, referred by Meagan Christine. Here today for a full skin examination and some concerning areas on her face. Currently using triamcinolone for some psoriasis around her hairline. Also is using Metrogel topically to her face. Denies any itching, bleeding, or pain. MEDICAL HISTORY none FAMILY HISTORY Denies any family history of melanoma, or non melanoma skin cancer ADR: Codeine phosphate MEDS: Current Outpatient Medications on File Prior to Visit Medication Sig Dispense Refill ??? FLUoxetine (PROZAC) 40 mg capsule 20MG, PO, Twice daily ??? CALCIUM ORAL ??? ibuprofen (ADVIL;MOTRIN) 200 mg tablet ??? aspirin (BABY ASPIRIN) 81 mg chewable tablet ??? Hollywood-3 Fatty Acids-Vitamin E (OMEGA-3 FISH OIL) 1,000-5 mg-unit Cap ??? meclizine (ANTIVERT) 25 mg tablet No current facility-administered medications on file prior to visit. 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 Full skin examination of the scalp, hair, head, face, neck, back, chest, abdomen, right and left upper extremities, right and left lower extremities and buttocks was normal with the exception of the findings listed below. Significant skin findings: A. Blotchy pigmentation and telangiectasia on sun-exposed skin with subtle yellowish cobblestoned appearance. B. Multiple 0.4-1 cm, brown-black papules/plaques with waxy stuck on appearance. C. Verrucous stuck on papule with surrounding erythema on the on right cheek. D. Spider veins E. Scattered 0.2-0.3cm yellowish papules with central umbilication on the face. F. Rosacea (Acne rosacea) ASSESSMENT/PLAN: A. Solar Lentigines - Benign. No treatment necessary. - Reassured about benign nature and natural history. - Sun avoidance, protective clothing and the use of SPF 30+ sunscreen is advised. Observe closely for skin changes and call if such occurs. B. Seborrheic Keratoses - Benign. No treatment necessary. - Reassured about benign nature and natural history. C. Irritated Seborrheic Keratosis - Benign, but symptomatic. Instructed patient to call in 6 weeks if not resolved will retreat area again. Procedure Note: Procedure: Destruction of lesion(s) with cryotherapy. Number: 1 Location: as above Discussed procedure and expectations including risks (including risk of hypopigmentation) and benefits. Verbal consent obtained. Frozen with LN2, 15-30 second thaw time, TWICE. There were no complications; the patient tolerated the procedure well. Post-procedure expectations and wound care were reviewed. D. Spider Veins - Benign. No treatment necessary. E. Sebaceous Hyperplasia - Benign. No treatment necessary. - Reassured about benign nature and natural history. F. Acne Rosacea -Recommend continuing topical Metrogel. RTC 1 year for FSE Note initiated and routed to physician for review and change by: Cuca Zaman LPN ICuca LPN, have performed the documentation for this encounter in the presence of and acting as a scribe for KENZIE YOUNG MD. I performed the services which were documented by the scribe, and I agree with the accuracy of the documentation in this encounter. KENZIE YOUNG MD. Kenzie Young MD Section of Dermatology [facility] cc: Meagan Christine PA [address] [place] [address] documented in this encounter Plan of Treatment Not on file documented as of this encounter Visit Diagnoses Diagnosis Lentigines Other dyschromia SK (seborrheic keratosis) Other seborrheic keratosis Seborrheic keratosis, inflamed Inflamed seborrheic keratosis Spider veins Nevus, non-neoplastic Sebaceous hyperplasia Other specified disease of sebaceous glands Acne rosacea Rosacea documented in this encounter Care Teams Craft Worker Relationship Specialty Start Date End Date Meagan Christine PA [address] [place] [address] PCP - General Family Medicine 01/23/18 12/04/19 documented as of this encounter
--- OUTSIDE RECORDS SUMMARY | 2023-11-22 19:16 | XMS_ITS | Encounter Summary ---
Author Organization [facility] Address [address] [place] [address] Care Team Providers Care Sample Checker Name Role Phone Unknown, Provider Primary Care Provider [phone] Encounter Details Date Type Department Care Team (Late st Contact Info) Description 11/06/2013 Results Only [facility] Laboratory Services - [facility] ([facility]) [address] [place], [place] [phone] Kishore Reyes, DO [address] [facility] [address] [place], [place] [phone] Social History Tobacco Use Types Packs/Day Years Used Date Smoking Tobacco: Never Assessed Sex and Gender Information Value Date Recorded Sex Assigned at Not on file Gender Identity Not on file Sexual Orientation Not on file documented as of this encounter Plan of Treatment Not on file documented as of this encounter Procedures Procedure Name Priority Date/Time Associated Diagnosis Comments SURGICAL PATHOLOGY Routine 11/06/2013 8:58 EDT documented in this encounter Results * SURGICAL PATHOLOGY (11/06/2013 8:58 EDT) Pathology Report: SURGICAL PATHOLOGY REPORT Reports generated via electronic interface contain original data; however they are lacking the format of the original report. Caution should be taken when reading/interpreti ng unformatted reports. Name: ? LUIS REJI Yanelis ? Accession #: ? [id number] ? : ? 1955 (Age: 58) ??F ? Collect Date: ? 11/06/2013 ? Location: ? [facility] ? Receive Date: ? 11/07/2013 ? Provider: KISHORE REYES DO Copy to: MAIA WILLIS ? Final Pathologic Diagnosis: COLON, 30 CM, POLYP, BIOPSY: - ??No specific pathologic features. - ??Deep levels examined. Document reviewed and electronically signed by: SIERRA CAICEDO MD Report ??Date: 11/08/2013 16:50 By the signature above, the attending physician certifies that he/she has personally conducted a gross and/or microscopic examination of the described specimens and rendered or confirmed the above diagnosis. Specimen(s) Received: Polyp 30 cm Clinical History: Fam hx colon Ca Gross Description: ? Received in formalin labelled with proper patient identification (initials R, P) and 1. polyp 30 cm is a single pink-gruber tissue fragment (0.2 x 0.2 x 0.2 cm). Submitted intact in 1. Stephanie Lawrence 11/07/2013 End of Report [facility] 11/06/2013 8:58 EDT 11/07/2013 8:58 EDT Kishore Reyes DO PATHOLOGY ORDER MARIA [facility] [address] [place] [address] documented in this encounter Visit Diagnoses Not on filedocumented in this encounter Care Teams Sample Checker Relationship Specialty Start Date End Date Unknown, Provider, PCP - General 06/17/10 04/17/22 documented as of this encounter
--- OUTSIDE RECORDS SUMMARY | 2023-11-22 19:16 | XMS_ITS | Encounter Summary ---
Author Organization [facility] Address [address] [place] [address] Care Team Providers Care Mother Tester Name Role Phone Unavailable Primary Care Provider Unavailabl e Encounter Details Date Type Department Care Team (Late st Contact Info) Description 06/03/[address] [facility] Laboratory Services - [facility] ([facility]) [address] [place], [place] [address] Tana Caldera MD [facility] [address] [place], [place] [phone] Social History Tobacco Use Types Packs/Day Years Used Date Smoking Tobacco: Never Assessed Sex and Gender Information Value Date Recorded Sex Assigned at Not on file Gender Identity Not on file Sexual Orientation Not on file documented as of this encounter Plan of Treatment Not on file documented as of this encounter Procedures Procedure Name Priority Date/Time Associated Diagnosis Comments CYTOPATHOLOGY Routine 06/03/2010 0:00 EST documented in this encounter Results * CYTOPATHOLOGY (06/03/2010 0:00 EST) Pathology Report: CYTOPATHOLOGY REPORT ? Reports generated via electronic interface contain original data; ? however they are lacking the format of the original report. ? Caution should be taken when reading/interpreti ng unformatted reports. ? Name: ? REJI SMITH ? Accession #: ? [id number] ? : ? 1955 (Age: 54) ??F ?Collect Date: ? 06/03/2010 ? Location: ? [facility] ? Receive Date: ? 06/04/2010 ? Provider: ?TANA READY MD ? Copy to: ? Specimen/Source: ?Pap Test, Cervix/Endocervix, ThinPrep Imaging System ? with manual evaluation ? Last Menstrual Period: ? 2005 ? Other: ? Additional clinical information: History of vulva cancer s/p resection 1986 no ?? abnl since then ? SPECIMEN ADEQUACY ? Satisfactory for Evaluation ? - assessment of transformation zone component not applicable ( e.g. atrophy, ? vaginal sample, hysterectomy) ? GENERAL CATEGORIZATION ? Negative for Intraepithelial Lesion or Malignancy ? Document reviewed and electronically signed by: ? Hector Polanco, CT(ASCP) ? Report Date: ??06/08/2010 12:54 ? End of Report ? [facility] 06/03/2010 06/04/2010 Tana Caldera MD PATHOLOGY ORDERABLES [facility] [address] [place] [address] documented in this encounter Visit Diagnoses Not on filedocumented in this encounter
--- OUTSIDE RECORDS SUMMARY | 2023-11-22 19:16 | XMS_ITS | Encounter Summary ---
Author Organization [facility] Address [address] [place] [address] Care Team Providers Care Part Time Receptionist Name Role Phone Unknown, Provider Primary Care Provider [phone] Meagan Christine PA-C Primary Care Provider + Encounter Details Date Type Department Care Team (Latest Contact Info) Description 11/09/2021 Lab Requisition [facility] Pathology & Laboratory Medicine - [facility] [address] [place] [address] Meagan Christine PA-C [address] [place] [address] Encounter for gynecological examination (general) (routine) without abnormal findings Social History Tobacco Use Types Packs/Day Years Used Date Smoking Tobacco: Never Assessed Sex and Gender Information Value Date Recorded Sex Assigned at Not on file Gender Identity Not on file Sexual Orientation Not on file documented as of this encounter Plan of Treatment Not on file documented as of this encounter Procedures Procedure Name Priority Date/Time Associated Diagnosis Comments PAP TEST Today 11/04/2021 5:30 EDT Encounter for gynecological examination (general) (routine) without abnormal findings HPV DNA DETECTION WITH GENOTYPING, PCR Today 11/04/2021 5:30 EDT Encounter for gynecological examination (general) (routine) without abnormal findings documented in this encounter Results * HUMAN PAPILLOMAVIRUS (HPV) DETECTION-HIGH RISK TYPES (11/04/2021 5:30 EDT) HPV other High Risk types, PCR Negative Negative 11/12/2021 15:15 T [facility] Comment:No E6 or E7 mRNA is detected from HPV types 16,18,31,33,35,39,45,51,52,56,58,59,66, and 68 by talent development analyst mediated amplification. Papanicolaou smear specimen (specimen) CERVIX UTERI STRUCTURE / Unknown 11/04/2021 5:30 EDT 11/11/2021 12:41 EDT Meagan Christine PA-C MICROBIOLOGY - G ENERAL ORDERABLES [facility] [address] [place] [address] * PAP TEST (11/04/2021 5:30 EDT) Specimens A. Cervix and/or Endocervix , ThinPrep Imaging System with Manual Evaluation 11/12/2021 15:15 [facility] Specimen Adequacy Satisfactory for Evaluation - assessment of transformation zone component not applicable ( e.g. atrophy, vaginal sample, hysterectomy) 11/12/2021 15:15 [facility] General Categorization Negative for intraepithelial lesion or malignancy 11/12/2021 15:15 [facility] Attestation . 11/12/2021 15:15 [facility] at 1515 Clinical History See below 11/13/19 15:15 [facility] HPV The result for the Human Papillomavirus (HPV) Detection-High Risk Types is Negative. No E6 or E7 mRNA is detected from HPV types 16,18,31,33,35,39 ,45,51,52,56,58,5 9,66, and 68 by talent development analyst mediated amplification.Patricia ting was performed on specimen [id number] and was resulted on 11/12/2021 1510 EDT by CHELY, LAB INSTRUMENT RESULTS IN 11/12/2021 15:15 T [facility] Performing Lab [facility] 11/12/2021 15:15 [facility] Scanned Images 11/12/2021 15:15 EDT [facility] Papanicolaou smear specimen (specimen) CERVIX UTERI STRUCTURE / Unknown 11/04/2021 5:30 EDT 11/09/2021 10:52 EDT Meagan Christine PA-C PATHOLOGY ORDERA BLES [facility] [address] [place] [address] documented in this encounter Visit Diagnoses Diagnosis Encounter for gynecological examination (general) (routine) without abnormal findings documented in this encounter Care Teams Part Time Receptionist Relationship Specialty Start Date End Date Unknown, Provider, PCP - General 06/17/10 04/17/22 Meagan Christine PA-C [address] [place] [phone] PCP - General 04/18/22 documented as of this encounter
--- OUTSIDE RECORDS SUMMARY | 2023-11-22 19:16 | XMS_ITS | Encounter Summary ---
Author Organization [facility] Address [address] [place] [address] Care Team Providers Care Farm Management Professor Name Role Phone Unknown, Provider Primary Care Provider [phone] Meagan Christine PA-C Primary Care Provider + Encounter Details Date Type Department Care Team (Late st Contact Info) Description 11/03/2020 Lab Requisition [facility] Pathology & Laboratory Medicine - [facility] [address] [place] [address] Meagan Christine PA-C [address] [place] [address] Encounter for other general examination Social History Tobacco Use Types Packs/Day Years Used Date Smoking Tobacco: Never Assessed Sex and Gender Information Value Date Recorded Sex Assigned at Not on file Gender Identity Not on file Sexual Orientation Not on file documented as of this encounter Plan of Treatment Not on file documented as of this encounter Procedures Procedure Name Priority Date/Time Associated Diagnosis Comments PAP TEST Today 10/29/2020 17:45 EDT Encounter for other general examination HPV DNA DETECTION WITH GENOTYPING, PCR Today 10/29/2020 17:45 EDT Encounter for other general examination documented in this encounter Results * (ABNORMAL) HUMAN PAPILLOMAVIRUS (HPV) DETECTION-HIGH RISK TYPES (10/29/2020 17:45 EDT) HPV other High Risk types, PCR Positive( A) Negative 11/13/2020 14:45 EDT [facility] Comment:E6 OR E7 mRNA from o ne or more types of HPV types 16,18,31,33,35,39,45,51,52,56,58,59,66, and 68 is detected by re dye hand mediated amplification. High and intermediate risk HPV types are associated with most squamous intraepithelial lesions and cervical cancers. Papanicolaou smear specimen (specimen) CERVIX UTERI STRUCTURE / Unknown 10/29/2020 17:45 EDT 11/12/2020 11:18 EDT Meagan Christine PA-C MICROBIOLOGY - G ENERAL ORDERABLES [facility] [address] [place] [address] * PAP TEST (10/29/2020 17:45 EDT) Specimens A. Cervix and/or Endocervix , ThinPrep Imaging System with Manual Evaluation 11/13/2020 14:45 EDT [facility] Specimen Adequacy Satisfactory for Evaluation - transformation zone component present 11/13/2020 14:45 EDT [facility] General Categorization Negative for intraepithelial lesion or malignancy 11/13/2020 14:45 T [facility] Attestation . 11/13/2020 14:45 [facility] at 1444 Clinical History See below 11/14/19 14:45 T [facility] HPV The result for the Human Papillomavirus (HPV) Detection-High Risk Types is Positive . E6 OR E7 mRNA from one or more types of HPV types 16,18,31,33,35,39 ,45,51,52,56,58,5 9,66, and 68 is detected by re dye hand mediated amplification. High and intermediate risk HPV types are associated with most squamous intraepithelial lesions and cervical cancers. Testing was performed on specimen [id number] and was resulted on 11/13/2020 1345 EDT by CHELY, LAB INSTRUMENT RESULTS IN 11/13/2020 14:45 EDT [facility] Performing Lab [facility] 11/13/2020 14:45 EDT [facility] Scanned Images 11/13/2020 14:45 EDT [facility] Papanicolaou smear specimen (specimen) CERVIX UTERI STRUCTURE / Unknown 10/29/2020 17:45 EDT 11/03/2020 8:30 EDT Meagan Christine PA-C PATHOLOGY ORDERA JEREMIAH [facility] [address] [place] [address] documented in this encounter Visit Diagnoses Diagnosis Encounter for other general examination documented in this encounter Care Teams Farm Management Professor Relationship Specialty Start Date End Date Unknown, Provider, PCP - General 06/17/10 04/17/22 Meagan Christine PA-C [address] [place] [phone] PCP - General 04/18/22 documented as of this encounter
--- OUTSIDE RECORDS SUMMARY | 2023-11-22 19:16 | XMS_ITS | Encounter Summary ---
Author Organization [facility] Address [address] [place] [address] Care Team Providers Care Curriculum Designer Name Role Phone Unknown, Provider Primary Care Provider [phone] Encounter Details Date Type Department Care Team ([facility] st Contact Info) Description 09/18/2018 Results Only [facility] [phone] Maia Rubio PA-C [address] [place] [phone] Social History Tobacco Use Types Packs/Day Years [...] Diagnosis Comments PAP TEST- RESULT ONLY Routine 09/18/2018 0:00 EDT documented in this encounter Results * PAP TEST- RESULT ONLY (09/18/2018 0:00 EDT) Pathology Report: CYTOPATHOLOGY REPORT Reports generated via electronic interface contain original data; however they are lacking the format of the original report. Caution should be taken when reading/interpreti ng unformatted reports. Name: ? REJI SMITH ? Accession #: ? [id number] ? : ? 1955 (Age: 63) ??F ?Collect Date: ? 09/18/2018 ? Location: ? [facility] ? Receive Date: ? 09/20/2018 ? Provider: MAIA RUBIO PA-C Copy to: ? Final Report SPECIMEN ADEQUACY ? Satisfactory for Evaluation - assessment of transformation zone component not applicable ( e.g. atrophy, vaginal sample, hysterectomy) - scant squamous epithelial component GENERAL CATEGORIZATION ? Negative for Intraepithelial Lesion or Malignancy ?? Treatment History: Colposcopy: YEARS AGO Specimen/Source: ??Pap Test, Cervix/Endocervix, ThinPrep Imaging System with manual evaluation Document reviewed and electronically signed by: ? Ivelisse Celeste, CT(ASCP) ? Report ??Date: 09/22/2018 12:30 HPV with Pap Test ? Date Ordered: ? 09/22/2018 ? Status: ?? Signed Out ?Date Complete: ? 09/25/2018 ? By: ??System Interface ? Date Reported: ? 09/25/2018 ? Interpretation RESULT: Negative for HPV. No E6 or E7 mRNA is detected from HPV types 16,18,31,33,35, 39,45,51,52,56,58, 59,66, and 68 by inlayer mediated amplification. Comments Document reviewed and electronically signed by: ? System Interface ? Report date: 09/25/2018 By the signature above, the attending physician certifies that he/she has personally conducted a gross and/or microscopic examination of the described specimens and rendered or confirmed the above diagnosis. End of Report [facility] 09/18/2018 09/20/2018 Maia Rubio PA-C PATHOLOGY ORDERA JEREMIAH [facility] [address] [place] [phone] documented in this encounter Visit Diagnoses Not on filedocumented in this encounter Care Teams Curriculum Designer Relationship Specialty Start Date End Date Unknown, Provider, PCP - General 06/17/10 04/17/22 documented as of this encounter
[2023-11-22 21:43] LABS: Abs Immature Grans 0.02 10^3/uL (0.0-0.06); Absolute Basophil Count 0.03 10^3/uL (0.0-0.2); Absolute Eosinophil Count 0.09 10^3/uL (0.0-0.7); Absolute Lymphocyte Count 0.96 10^3/uL (1.2-3.4); Absolute Monocyte Count 0.53 10^3/uL (0.1-0.8); Absolute Neutrophil Count 4.16 10^3/uL (1.2-6.7); Basophils % 0.5 %; Eosinophils % 1.6 %; HCT 39.4 % (36.0-46.0); HGB 12.8 g/dL (11.2-15.7); Immature Grans % 0.3 %; Lymphocytes % 16.6 %; MCHC 32.5 % (32.0-36.0); MCV 102 fL (80-95); MPV 9.9 fL (8.0-11.0); Monocytes % 9.2 %; Neutrophils % 71.8 %; Platelet Count 280 10^3/uL (130-400); RBC 3.88 10^6/uL (3.93-5.22); RDW 12.1 % (11.7-14.6); RDW-SD 45.5 fL; WBC 5.79 10^3/uL (4.4-10.8)
[2023-11-22 22:08] LABS: ALT 30 U/L (14-59); AST 20 U/L (15-37); Albumin 4.3 g/dL (3.4-5.0); Alkaline Phosphatase 60 U/L (46-116); Anion Gap 11.9 mmol/L (3-11); BUN 28 mg/dL (7-18); Bilirubin, Total 0.46 mg/dL (0.2-1.0); CO2 26.1 mmol/L (21.0-32.0); CREATININE 0.8 mg/dL (0.55-1.02); Calcium 9.8 mg/dL (8.5-10.1); Chloride 101 mmol/L (98-107); Estimated GFR 79.71 (mL/min/1.73m2); Glucose 112 mg/dL (74-106); Potassium 4.6 mmol/L (3.5-5.1); Sodium 139 mmol/L (136-145); Total Protein 7.7 g/dL (6.4-8.2)
[2023-11-22 23:04] LABS: C Diff PCR Negative (Negative)
[2023-11-23 20:22] LABS: Campylobacter PCR Negative (Negative); Salmonella PCR Negative (Negative); Shiga Toxin PCR Negative (Negative); Shigella/Enteroinvasive Ecoli Negative (Negative)
[2023-11-24 11:46] LABS: IgA 270 mg/dL (85-499); Interpretation (See Note); Tissue Transglutaminase IgA <4.0 CU (<20.0)
== END 2023-11-22 19:16 | disposition home or self-care (01) ==
LOC: LBN 19:15
PROVIDERS: PCP Physician Assistant Medical; Visit Provider Nurse Practitioner Family
DX: R19.7 Diarrhea, unspecified (principal)
CPT/HCPCS: 80053; 82784; 83516; 87493; 87505; 85025; 87177

== ENCOUNTER 2023-12-27 02:38 | Outpatient (CLI) | payer MEDICARE, SELFPAY ==
[2023-12-27 17:31] LABS: CREATININE 0.8 mg/dL (0.55-1.02); Estimated GFR 79.71 (mL/min/1.73m2)
== END 2023-12-27 02:39 | disposition home or self-care (01) ==
LOC: LBO 02:38
PROVIDERS: PCP Physician Assistant Medical; Visit Provider Physician Assistant Medical
DX: R10.32 Left lower quadrant pain (principal)
CPT/HCPCS: 36415; 82565

== ENCOUNTER 2023-12-28 02:17 | Outpatient (CLI) | payer MEDICARE, SELFPAY ==
--- NOTE | 2023-12-28 | DI.MAMMO_ITS ---
Exam(s) MAMMO SCREENING EXAM: MAMMO SCREENING CLINICAL HISTORY: SCREENING MAMMO, Z12.31 TECHNIQUE: Mammograms were interpreted according to the usual protocol including computer analysis w [employer] CAD system, tomosynthesis and C-view imaging. COMPARISON: 2014 through 2022 FINDINGS: The breasts are composed of heterogeneously dense fibroglandular densities, Breast Density category C . No suspicious masses or suspicious microcalcifications are seen. No skin thickening or abnormal axillary lymph nodes are seen. There has been no significant change from prior exams. IMPRESSION: BI-RADS Category 1, Negative mammogram. Yearly screening mammography is recommended. Breast Density Category C, heterogeneously Dense. The mammogram demonstrates the patient's breast tissue is dense. Dense breast tissue is very common a nd is not abnormal but dense breast tissue can make it harder to find cancer on a mammogram. Also, de nse breast tissue may increase breast cancer risk. This information about the result of the mammogram report was provided to the patient to raise their awareness. Use this report when you speak with the patient about their risks for breast cancer, which includes their family history. At that time, you may recommend additional screening tests (Ultrasound or MRI) as they might be useful based on their r isk. A negative radiographic report should not delay biopsy if a dominant or clinically suspicious mass is present. Up to ten percent of cancers are not identified on mammography. A negative report may reinforce clinical impression. Adenosis and dense breasts may obscure an underlying neoplasm. False positive reports average 6 to 10%.
== END 2023-12-28 02:37 ==
LOC: DI 02:17
PROVIDERS: PCP Physician Assistant Medical; Visit Provider Physician Assistant Medical
DX: Z12.31 Encounter for screening mammogram for malignant neoplasm of breast (principal)
CPT/HCPCS: 77063; 77067

== ENCOUNTER 2023-12-30 00:38 | Outpatient (CLI) | payer MEDICARE, SELFPAY ==
--- NOTE | 2023-12-30 | DI.CT_ITS ---
Exam(s) CT ABDOMEN PELVIS W EXAM: CT ABDOMEN PELVIS W CLINICAL HISTORY: LEFT LOWER QUAD PAIN, DIARRHEA, R10.32 TECHNIQUE: Imaging Protocol: Axial computed tomography images with coronal and sagittal reformatted images were created and reviewed. CONTRAST MATERIAL: Intravenous: Omnipaque 350 Contrast volume:100 mL Oral: Yes COMPARISON: No exams were available for comparison FINDINGS: ABDOMEN: Lung Bases: There is a calcified granuloma in the left lower lobe. Liver: Normal density. No measurable mass. Portal, Superior Mesenteric, and Splenic Veins: Unremarkable. Gallbladder and Biliary Tract: No radiodense calculus or dilation. Pancreas: Normal density, no abnormal calcifications or inflammatory process. Spleen: Normal. Adrenals: No masses seen. Kidneys: Normal size, contour and axis. No radiodense stones or obstructive uropathy. No masses seen. Abdominal Aorta: Abdominal portion non-dilated. Atherosclerotic calcification is present. Bowel: There is a moderate amount of stool throughout the colon suggesting constipation. There is a duodenal diverticulum adjacent to the head of the pancreas. There is no evidence of bowel obstructio n or bowel wall thickening. No evidence of appendicitis. Peritoneal Cavity: No ascites, collection or mesenteric inflammatory response. No free air. Lymph Nodes: Within normal limits. Bones: Within normal limits for the patient's age. Soft Tissues: Unremarkable. PELVIS: Bladder: Symmetric distention, no gross wall thickening. Reproductive Organs: There is a calcified uterine fibroid present. Lymph Nodes: Within normal limits. Bones: Within normal limits for the patient's age. IMPRESSION: 1. No acute abdominal or pelvic process. 2. There is a moderate amount of stool in the colon. RADIATION DOSE DELIVERED: 273.88mGy.cm Total DLP DATA REPOSITORY: All CT scans at this facility are submitted to the National Radiology Data Registry (NRDR) Dose Index Registry (DIR) with the [employer] (ACR). RADIATION OPTIMIZATION: All CT scans at this facility use at least one of these dose optimization te chniques: automated exposure control; mA and/or kV adjustment per patient size (includes targeted exa ms where dose is matched to clinical indication); or iterative reconstruction.
--- OUTSIDE RECORDS SUMMARY | 2023-12-30 00:57 | XMS_ITS | Encounter Summary ---
Author Organization [facility] Address [address] [place] [address] Care Team Providers Care Market Research Intern Name Role Phone Unknown, Provider Primary Care Provider [phone] Meagan Christine PA-C Primary Care Provider + Encounter Details Date Type Department Care Team (Late st Contact Info) Description 11/03/2020 Lab Requisition [facility] Pathology & Laboratory Medicine - [facility] [address] [place] [address] Meagan Christine PA-C [address] [place] [address] Encounter for other general examination Social History [...] PCR Positive( A) Negative 11/13/2020 14:45 EDT [facility] Comment:E6 OR E7 mRNA from o ne or more types of HPV types 16,18,31,33,35,39,45,51,52,56,58,59,66, and 68 is detected by fork lift technician mediated amplification. High and intermediate risk HPV types are associated with most squamous intraepithelial lesions and cervical cancers. Papanicolaou smear specimen (specimen) CERVIX UTERI STRUCTURE / Unknown 10/29/2020 17:45 EDT 11/12/2020 11:18 EDT Meagan Christine PA-C MICROBIOLOGY - G ENERAL ORDERABLES [facility] [address] [place] [address] * PAP TEST (10/29/2020 17:45 EDT) Specimens A. Cervix and/or Endocervix , ThinPrep Imaging System with Manual Evaluation 11/13/2020 14:45 EDT [facility] Specimen Adequacy Satisfactory for Evaluation - transformation zone component present 11/13/2020 14:45 EDT [facility] General Categorization Negative for intraepithelial lesion or malignancy 11/13/2020 14:45 T [facility] Attestation . 11/13/2020 14:45 [facility] at 1444 Clinical History See below 11/14/19 14:45 T [facility] HPV The result for the Human Papillomavirus (HPV) Detection-High Risk Types is Positive . E6 OR E7 mRNA from one or more types of HPV types 16,18,31,33,35,39 ,45,51,52,56,58,5 9,66, and 68 is detected by fork lift technician mediated amplification. High and intermediate risk HPV types are associated with most squamous intraepithelial lesions and cervical cancers. Testing was performed on specimen [id number] and was resulted on 11/13/2020 1345 EDT by CHELY, LAB INSTRUMENT RESULTS IN 11/13/2020 14:45 EDT [facility] Performing Lab [facility] 11/13/2020 14:45 EDT [facility] Scanned Images 11/13/2020 14:45 EDT [facility] Papanicolaou smear specimen (specimen) CERVIX UTERI STRUCTURE / Unknown 10/29/2020 17:45 EDT 11/03/2020 8:30 EDT Meagan Christine PA-C PATHOLOGY ORDERA JEREMIAH [facility] [address] [place] [address] documented in this encounter Visit Diagnoses Diagnosis Encounter for other general examination documented in this encounter Care Teams Market Research Intern Relationship Specialty Start Date End Date Unknown, Provider, PCP - General 06/17/10 04/17/22 Meagan Christine PA-C [address] [place] [phone] PCP - General 04/18/22 documented as of this encounter
--- OUTSIDE RECORDS SUMMARY | 2023-12-30 00:57 | XMS_ITS | Encounter Summary ---
Author Organization [facility] Address [address] [place] [address] Care Team Providers Care Manuscript Reader Name Role Phone Meagan Christine PA-C Primary Care Provider + Encounter Details Date Type Department Care Team (Late st Contact Info) Description 11/23/2023 Lab Requisition [facility] Pathology & Laboratory Medicine - [address] [address] Outr Resulting Lab, Provider Social History Tobacco [...] Procedure Name Priority Date/Time Associated Diagnosis Comments CELIAC DISEASE PANEL Routine 11/22/2023 14:10 EDT documented in this encounter Results * CELIAC DISEASE PANEL (11/22/2023 14:10 EDT) Tissue Transglutaminase Antibody, IgA <4.0 <20.0 CU 11/24/2023 11:42 EDT [facility] Comment: A negative result may be due to IgA deficiency and does not rule out celiac disease. Negative: <20.0 CU Weak Positive: 20.0-30.0 CU Positive: >30.0 CU Results were obtained with the [employer] Flash h-tTG IgA chemiluminescent immunoassay. Values obtained with different manufacturers' assay methods may not be used interchangeably. IgA 270 85 - 499 mg/dL 11/24/2023 11:42 EDT [facility] Celiac Disease Interpretation Negative Serology. Celiac disease unlikely. Approximately 10% of patients with celiac disease are seronegative. Patients who are already adhering to a gluten-free diet may also be seronegative. If celiac disease is highly clinically suspected, referral to gastroenterology for additional evaluation is recommended. 11/24/2023 11:42 EDT [facility] Blood VENOUS BLOOD / Unknown 11/22/2023 14:10 EDT 11/23/2023 17:13 EDT Provider Outr Resulting Lab IMMUNOLOGY A ND SEROLOGY ORDERABLES [facility] [address] [place] [address] documented in this encounter Visit Diagnoses Not on filedocumented in this encounter Care Teams Manuscript Reader Relationship Specialty Start Date End Date Meagan Christine PA-C [address] [place] [phone] PCP - General 04/18/22 documented as of this encounter
--- OUTSIDE RECORDS SUMMARY | 2023-12-30 00:57 | XMS_ITS | Encounter Summary ---
Author Organization [facility] Address [address] [place] [address] Care Team Providers Care Electronics Engineering Technician Name Role Phone Unavailable Primary Care Provider Unavailabl e Encounter Details Date Type Department Care Team (Late st Contact Info) Description 06/03/2010 Results Only [facility] Laboratory Services - [facility] ([facility] [address] [place], [place] [id number] Tana Caldera MD [facility] [address] [place], [place] [id number] Social History Tobacco Use Types Packs/Day Years [...] ? REJI SMITH ? Accession #: ? [id number] ? : ? 1955 (Age: 54) ??F [...] MD PATHOLOGY ORDERABLES [facility] [address] [place] [address] documented in this encounter Visit Diagnoses Not on filedocumented in this encounter
--- OUTSIDE RECORDS SUMMARY | 2023-12-30 00:57 | XMS_ITS | Encounter Summary ---
Author Organization [facility] [place] [address] Care Team Providers Care Education Professional Name Role Phone Unknown Primary Care Provider Unavailabl e Encounter Details Date Type Department Care Team ([facility] st Contact Info) Description 10/02/2003 Orders Only Lab [facility] [place] [address] Raul Renteria MD [place], [place] Social History Tobacco Use Types Packs/Day [...] 8:37 PM EDT) Surgical Pathology Report [id number] ? Location: The signing pathologist has (i) [...] on filedocumented in this encounter Care Teams Education Professional Relationship Specialty Start Date End Date Unknown None PCP - General 12/05/19 documented as of this encounter
--- OUTSIDE RECORDS SUMMARY | 2023-12-30 00:57 | XMS_ITS | Encounter Summary ---
Author Organization [facility] Address [facility] [place] [address] Care Team Providers Care Photography Sales Associate Name Role Phone Meagan Christine Primary Care Provider [phone] Reason for Visit * Reason Comments Skin Lesion * Consultation (Routine) - Specialty Diagnoses / Procedures Referred By Contpatrice t Referred To Contact Dermatology Diagnoses FACIAL SKIN LESION Meagan Christine PA [address] [place] [address] [facility] [address] [place] [address] Referral ID Status Reason Start Date Expiration Date V isits Requested Visits Authorized [id number] Consult, Test & Treat Connection Center 01/23/2018 01/23/2019 6 6 Encounter Details Date Type Department Care Team ([facility] Contact Info) Description 03/13/2018 1:00 PM EST Office Visit Dermatology at [facility] [address] [place] [address] Kenzie Young MD [facility] [address] CRYSTAL [facility] [address] Lentigines; SK (seborrheic keratosis); Seborrheic keratosis, inflamed; Spider veins; Sebaceous hyperplasia; Acne rosacea Social History Tobacco Use Types Packs/Day Years Used Date Smoking Tobacco: Never Smokeless Tobacco: Never Sex and Gender Information Value Date Recorded Sex Assigned at Not on file Gender Identity Not on file Sexual Orientation Not on file documented as of this encounter Progress Notes * Cuca Zaman, PERSONAL SHOPPER - 03/13/2018 1:00 PM EST DERMATOLOGY CONSULT [...] (BABY ASPIRIN) 81 mg chewable tablet ??? [place]-3 Fatty Acids-Vitamin E (OMEGA-3 FISH OIL) 1,000-5 [...] MD. Kenzie Young MD Section of Dermatology [facility] cc: Meagan Christine PA [address] [place] [address] documented in this encounter Plan of Treatment Not on file documented as of this encounter Visit Diagnoses Diagnosis Lentigines Other dyschromia SK (seborrheic keratosis) Other seborrheic keratosis Seborrheic keratosis, inflamed Inflamed seborrheic keratosis Spider veins Nevus, non-neoplastic Sebaceous hyperplasia Other specified disease of sebaceous glands Acne rosacea Rosacea documented in this encounter Care Teams Photography Sales Associate Relationship Specialty Start Date End Date Meagan Christine PA [address] [place] [address] PCP - General Family Medicine 01/23/18 12/04/19 documented as of this encounter
--- OUTSIDE RECORDS SUMMARY | 2023-12-30 00:57 | XMS_ITS | Clinical Summary ---
Author Organization [facility] [place] [address] Care Team Providers Care Ditcher Name Role Phone Unknown Primary Care Provider Unavailabl e Allergies Active Allergy Reactions Criticality Noted Date Comments Codeine Phosphate CIS - Vomiting, pruritis Medications Medication Sig Dispensed Refills Start Date End Date Status CALCIUM ORAL 05/11/2006 Active ibuprofen (ADVIL;MOTRIN) 200 mg tablet 05/11/2006 Active aspirin (BABY ASPIRIN) 81 mg chewable tablet 05/11/2006 Active [place]-3 Fatty Acids-Vitamin E (OMEGA-3 FISH OIL) 1,000-5 [...] - PCV) 08/18/2019 Covid-19 Vaccine (1 - 2022- season) 2023 Influenza (Flu) vaccine (1 o f 1 - Influenza standard series) 12/18/2023 Advance Directives Documents on File Type Date Recorded 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
--- OUTSIDE RECORDS SUMMARY | 2023-12-30 00:57 | XMS_ITS | Encounter Summary ---
Author Organization [facility] Address [address] [place] [address] Care Team Providers Care Head Loader Name Role Phone Unknown, Provider Primary Care Provider [phone] Meagan Christine PA-C Primary Care Provider + Encounter Details Date Type Department Care Team (Latest Contact Info) Description 11/09/2021 Lab Requisition [facility] Pathology & Laboratory Medicine - [facility] [address] [place] [address] Meagan Christine PA-C [address] [place] [address] Encounter for gynecological examination (general) (routine) without [...] types, PCR Negative Negative 11/12/2021 15:15 T [facility] Comment:No E6 or E7 mRNA is detected from HPV types 16,18,31,33,35,39,45,51,52,56,58,59,66, and 68 by glass sander belt mediated amplification. Papanicolaou smear specimen (specimen) CERVIX UTERI STRUCTURE / Unknown 11/04/2021 5:30 EDT 11/11/2021 12:41 EDT Meagan Christine PA-C MICROBIOLOGY - G ENERAL ORDERABLES [facility] [address] [place] [address] * PAP TEST (11/04/2021 5:30 EDT) Specimens A. Cervix and/or Endocervix , ThinPrep Imaging System with Manual Evaluation 11/12/2021 15:15 [facility] Specimen Adequacy Satisfactory for Evaluation - assessment of transformation zone component not applicable ( e.g. atrophy, vaginal sample, hysterectomy) 11/12/2021 15:15 [facility] General Categorization Negative for intraepithelial lesion or malignancy 11/12/2021 15:15 [facility] Attestation . 11/12/2021 15:15 [facility] at 1515 Clinical History See below 11/13/19 15:15 [facility] HPV The result for the Human Papillomavirus (HPV) Detection-High Risk Types is Negative. No E6 or E7 mRNA is detected from HPV types 16,18,31,33,35,39 ,45,51,52,56,58,5 9,66, and 68 by glass sander belt mediated amplification.Patricia ting was performed on specimen [id number] and was resulted on 11/12/2021 1510 EDT by CHELY, LAB INSTRUMENT RESULTS IN 11/12/2021 15:15 T [facility] Performing Lab [facility] 11/12/2021 15:15 [facility] Scanned Images 11/12/2021 15:15 EDT [facility] Papanicolaou smear specimen (specimen) CERVIX UTERI STRUCTURE / Unknown 11/04/2021 5:30 EDT 11/09/2021 10:52 EDT Meagan Christine PA-C PATHOLOGY ORDERA BLES [facility] [address] [place] [address] documented in this encounter Visit Diagnoses Diagnosis Encounter for gynecological examination (general) (routine) without abnormal findings documented in this encounter Care Teams Head Loader Relationship Specialty Start Date End Date Unknown, Provider, PCP - General 06/17/10 04/17/22 Meagan Christine PA-C [address] [place] [phone] PCP - General 04/18/22 documented as of this encounter
--- OUTSIDE RECORDS SUMMARY | 2023-12-30 00:57 | XMS_ITS | Encounter Summary ---
Author Organization [facility] Address [address] [place] [address] Care Team Providers Care Business Improvement Manager Name Role Phone Unknown, Provider Primary Care Provider [phone] Encounter Details Date Type Department Care Team ([facility] st Contact Info) Description 09/18/2018 Results Only [facility] [phone] Maia Rubio PA-C [address] [place] [phone] Social History Tobacco Use Types Packs/Day Years [...] ? REJI SMITH ? Accession #: ? [id number] ? : ? 1955 (Age: 63) ??F [...] types 16,18,31,33,35, 39,45,51,52,56,58, 59,66, and 68 by frame carver spindle mediated amplification. Comments Document reviewed and electronically signed by: ? System Interface ? Report date: 09/25/2018 By the signature above, the attending physician certifies that he/she has personally conducted a gross and/or microscopic examination of the described specimens and rendered or confirmed the above diagnosis. End of Report [facility] 09/18/2018 09/20/2018 Maia Rubio PA-C PATHOLOGY ORDERA JEREMIAH [facility] [address] [place] [address] documented in this encounter Visit Diagnoses Not on filedocumented in this encounter Care Teams Business Improvement Manager Relationship Specialty Start Date End Date Unknown, Provider, PCP - General 06/17/10 04/17/22 documented as of this encounter
--- OUTSIDE RECORDS SUMMARY | 2023-12-30 00:57 | XMS_ITS | Encounter Summary ---
Author Organization [facility] Address [address] [place] [address] Care Team Providers Care Restaurant Front Manager Name Role Phone Unavailable Primary Care Provider Unavailabl e Encounter Details Date Type Department Care Team (Late st Contact Info) Description 06/15/2010 Results Only [facility] - [facility] ([facility]) [address] [place], [place] [address] Tj Schumacher MD [address] [place] [address] Social History Tobacco Use Types [...] LUIS, REJI J ? Accession #: ? [id number] ? : ? 1955 (Age: 54) ??F [...] adenoma ? Gross Description: ? Received in [email or web address] fixative labelled Reji Prescott and 1 ? sigmoid colon polyp is a 0.6 x 0.2 x 0.2 cm polypoid biopsy. ??The specimen is ?? submitted intact as (A). ? Received in [email or web address] fixative labelled Reji Prescott and 2 ??random ? rectal bx are two biopsies which vary in size from 0.2 x 0.2 x 0.2 cm up to 0.4 x 0.3 x 0.2 cm. ??The specimens are submitted intact as (B). ??(ALLYSSA Wolf/kate ? End of Report ? [facility] 06/15/2010 06/16/2010 8:3 2 EST Tj Schumacher MD PATHOLOGY ORDERABLES [facility] [address] [place] [address] documented in this encounter Visit Diagnoses Not on filedocumented in this encounter
--- OUTSIDE RECORDS SUMMARY | 2023-12-30 00:57 | XMS_ITS | Encounter Summary ---
Author Organization [facility] Address [address] [place] [address] Care Team Providers Care Frame Bender Name Role Phone Unknown, Provider Primary Care Provider [phone] Meagan Christine PA-C Primary Care Provider + Encounter Details Date Type Department Care Team (Late st Contact Info) Description 11/19/2020 Lab Requisition [facility] Pathology & Laboratory Medicine - [address] [address] Outr Resulting Lab, Provider Social History Tobacco [...] C Antibody Negative Negative 11/20/2020 9:36 EDT [facility] Blood VENOUS BLOOD / Unknown 11/19/2020 7:17 EDT 11/19/2020 15:33 EDT Provider Outr Resulting Lab CHEMISTRY & BLOOD GAS ORDERABLES [facility] [address] [place] [address] documented in this encounter Visit Diagnoses Not on filedocumented in this encounter Care Teams Frame Bender Relationship Specialty Start Date End Date Unknown, Provider, PCP - General 06/17/10 04/17/22 Meagan Christine PA-C [address] [place] [phone] PCP - General 04/18/22 documented as of this encounter
--- OUTSIDE RECORDS SUMMARY | 2023-12-30 00:57 | XMS_ITS | Encounter Summary ---
Author Organization [facility] Address [address] [place] [address] Care Team Providers Care Detention Attendant Name Role Phone Unknown, Provider Primary Care Provider [phone] Encounter Details Date Type Department Care Team (Late st Contact Info) Description 11/06/2013 Results Only [facility] Laboratory Services - [facility] ([facility]) [address] [place], [place] [id number] Kishore Reyes, DO [address] [facility] [address] [place], [place] [id number] Social History Tobacco Use Types Packs/Day Years [...] when reading/interpreti ng unformatted reports. Name: ? ETHAN SMITHRICIA Yanelis ? Accession #: ? [id number] ? : ? 1955 (Age: 58) ??F [...] PATHOLOGY ORDER MARIA [facility] [address] [place] [address] documented in this encounter Visit Diagnoses Not on filedocumented in this encounter Care Teams Detention Attendant Relationship Specialty Start Date End Date Unknown, Provider, PCP - General 06/17/10 04/17/22 documented as of this encounter
--- OUTSIDE RECORDS SUMMARY | 2023-12-30 00:57 | XMS_ITS | Referral Summary ---
Author Organization [facility] Address [address] [place] [address] Care Team Providers Care Career Education Teacher Name Role Phone Meagan Christine PA-C Primary Care Provider + Encounters Date Type Department Care Team Description 11/23/2023 Lab Requisition [facility] Pathology & Laboratory [facility] [address] [place] [address] Outr Resulting Lab, Provider 11/23/2023 Lab Requisition [facility] Pathology & Laboratory [facility] [address] [place] [address] Outr Resulting Lab, Provider from Last 3 Months Social History Tobacco Use Types Packs/Day Years Used Date Smoking Tobacco: Never Assessed Sex and Gender Information Value Date Recorded Sex Assigned at Not on file Gender Identity Not on file Sexual Orientation Not on file Plan of Treatment Not on file Procedures Procedure Name Priority Date/Time Associated Diagnosis Comments FECAL BACTERIAL PATHOGENS BY PCR Routine 11/22/2023 17:00 EDT CELIAC DISEASE PANEL Routine 11/22/2023 14:10 EDT HEPATITIS C AB W REFLEX TO HCV RNA BY PCR Routine 11/19/2020 7:17 EDT from Last 3 Months or Most Recently Relevant to Health Maintenance Results * FECAL BACTERIAL PATHOGENS BY PCR (11/22/2023 17:00 EDT) Salmonella PCR Negative Negative 11/23/2023 20:[address] [facility] Shigella/Enteroin vasive E. coli Negative Negative 11/23/2023 20:[address] [facility] HN LAB CAMPYLOBACTER PCR Negative Negative 11/23/2023 20:[address] [facility] Shiga Toxin PCR Negative Negative 20:[address] [facility] Feces SPECIMEN FROM RECTUM / Unknown 11/22/2023 17:00 EDT 11/23/2023 17:01 EDT Provider Outr Resulting Lab MICROBIOLOGY - GENERAL ORDERABLES Performing Organization Address [facility] Co de Phone Number [facility] [address] [place] [address] * CELIAC DISEASE PANEL (11/22/2023 14:10 EDT) Tissue Transglutaminase Antibody, IgA <4.0 <20.0 CU 11/24/2023 11:[address] [facility] Comment: A negative result may be due to IgA deficiency and does not rule out celiac disease. Negative: <20.0 CU Weak Positive: 20.0-30.0 CU Positive: >30.0 CU Results were obtained with the [employer] QUANTA Flash h-tTG IgA chemiluminescent immunoassay. Values obtained with different manufacturers' assay methods may not be used interchangeably. IgA 270 85 - 499 mg/dL 11/24/2023 11:[address] [facility] Celiac Disease Interpretation Negative Serology. Celiac disease unlikely. Approximately 10% of patients with celiac disease are seronegative. Patients who are already adhering to a gluten-free diet may also be seronegative. If celiac disease is highly clinically suspected, referral to gastroenterology for additional evaluation is recommended. 11/24/2023 11:[address] [facility] Blood VENOUS BLOOD / Unknown 11/22/2023 14:10 EDT 11/23/2023 17:13 EDT Provider Outr Resulting Lab IMMUNOLOGY A ND SEROLOGY ORDERABLES Performing Organization Address [facility] Co de Phone Number [facility] [address] [place], [place] [id number] * HEPATITIS C AB W REFLEX TO HCV RNA BY PCR (11/19/2020 7:17 EDT) Hep C Antibody Negative Negative 11/20/2020 9:[address] [facility] Blood VENOUS BLOOD / Unknown 11/19/2020 7:17 EDT 11/19/2020 15:33 EDT Provider Outr Resulting Lab CHEMISTRY & BLOOD GAS ORDERABLES [facility] [address] [place] [address] from Last 3 Months or Most Recently Relevant to Health Maintenance Care Teams Career Education Teacher Relationship Specialty Start Date End Date Meagan Christine PA-C [address] [place] [address] PCP - General 04/18/22
--- OUTSIDE RECORDS SUMMARY | 2023-12-30 00:57 | XMS_ITS | Encounter Summary ---
Author Organization [facility] Address [address] [place] [address] Care Team Providers Care Rehabilitation Director Name Role Phone Meagan Christine PA-C Primary Care Provider + Encounter Details Date Type Department Care Team ([facility] st Contact Info) Description 11/23/2023 Lab Requisition [facility] Pathology & Laboratory Medicine - [facility] [address] [place] [address] Outr Resulting Lab, Provider Social History Tobacco [...] PATHOGENS BY PCR Routine 11/22/2023 17:00 EDT documented in this encounter Results * FECAL BACTERIAL PATHOGENS BY PCR (11/22/2023 17:00 EDT) Salmonella PCR Negative Negative 11/23/2023 20:17 EDT [facility] Shigella/Enteroin vasive E. coli Negative Negative 11/23/2023 20:17 EDT [facility] HN LAB CAMPYLOBACTER PCR Negative Negative 11/23/2023 20:17 EDT [facility] Shiga Toxin PCR Negative Negative 20:17 EDT [facility] Feces SPECIMEN FROM RECTUM / Unknown 11/22/2023 17:00 EDT 11/23/2023 17:01 EDT Provider Outr Resulting Lab MICROBIOLOGY - GENERAL ORDERABLES [facility] [address] [place] [address] documented in this encounter Visit Diagnoses Not on filedocumented in this encounter Care Teams Rehabilitation Director Relationship Specialty Start Date End Date Meagan Christine PA-C [address] [place] [phone] PCP - General 04/18/22 documented as of this encounter
--- OUTSIDE RECORDS SUMMARY | 2023-12-30 00:57 | XMS_ITS | Clinical Summary ---
Author Organization [facility] Address [address] [place] [address] Care Team Providers Care Sonar Subsystem Equipment Operator Name Role Phone Meagan Christine PA-C Primary Care Provider + Encounters Date Type Department Care Team Description 11/23/2023 Lab Requisition [facility] Pathology & Laboratory [facility] [address] [place] [address] Outr Resulting Lab, Provider 11/23/2023 Lab Requisition [facility] Pathology & Laboratory [facility] [address] [place] [address] Outr Resulting Lab, Provider from Last 3 [...] Risk Screening 08/18/2019 COVID-19 Vaccine ( season) 2023 Hepatitis C Screen Completed 11/19/2020 Procedures Procedure [...] Salmonella PCR Negative Negative 11/23/2023 20:17 EDT [facility] Shigella/Enteroin vasive E. coli Negative Negative 11/23/2023 20:17 EDT [facility] HN LAB CAMPYLOBACTER PCR Negative Negative 11/23/2023 20:17 EDT [facility] Shiga Toxin PCR Negative Negative 20:17 EDT [facility] Feces SPECIMEN FROM RECTUM / Unknown 11/22/2023 17:00 EDT 11/23/2023 17:01 EDT Provider Outr Resulting Lab MICROBIOLOGY - GENERAL ORDERABLES [facility] [address] [place] [address] * CELIAC DISEASE PANEL (11/22/2023 14:10 EDT) Tissue Transglutaminase Antibody, IgA <4.0 <20.0 CU 11/24/2023 11:42 EDT [facility] Comment: A negative result may be due to IgA deficiency and does not rule out celiac disease. Negative: <20.0 CU Weak Positive: 20.0-30.0 CU Positive: >30.0 CU Results were obtained with the [employer] QUANTA Flash h-tTG IgA chemiluminescent immunoassay. Values obtained with different manufacturers' assay methods may not be used interchangeably. IgA 270 85 - 499 mg/dL 11/24/2023 11:42 EDT [facility] Celiac Disease Interpretation Negative Serology. Celiac disease unlikely. Approximately 10% of patients with celiac disease are seronegative. Patients who are already adhering to a gluten-free diet may also be seronegative. If celiac disease is highly clinically suspected, referral to gastroenterology for additional evaluation is recommended. 11/24/2023 11:42 EDT [facility] Blood VENOUS BLOOD / Unknown 11/22/2023 14:10 EDT 11/23/2023 17:13 EDT Provider Outr Resulting Lab IMMUNOLOGY A ND SEROLOGY ORDERABLES [facility] [address] [place] [address] * HEPATITIS C AB W REFLEX TO HCV RNA BY PCR (11/19/2020 7:17 EDT) Hep C Antibody Negative Negative 11/20/2020 9:36 EDT [facility] Blood VENOUS BLOOD / Unknown 11/19/2020 7:17 EDT 11/19/2020 15:33 EDT Provider Outr Resulting Lab CHEMISTRY & BLOOD GAS ORDERABLES Performing Organization Address City/[facility]/ZIP Co de Phone Number [facility] [address] [place] [address] from Last 3 Months or Most Recently Relevant to Health Maintenance Care Teams Sonar Subsystem Equipment Operator Relationship Specialty Start Date End Date Meagan Christine PA-C [address] [place] [phone] PCP - General 04/18/22
--- OUTSIDE RECORDS SUMMARY | 2023-12-30 00:57 | XMS_ITS | Encounter Summary ---
Author Organization [facility] Address [address] [place] [address] Care Team Providers Care Trouble Lineman Name Role Phone Unknown, Provider Primary Care Provider Encounter Details Date Type Department Care Team ([facility] st Contact Info) Description 07/02/2013 Results Only [facility] Services - [facility] ([facility]) [address] [place] [address] Meagan Christine PA-C [address] [place] [phone] Social History Tobacco Use Types Packs/Day Years [...] LUIS REJI Yanelis ? Accession #: ? [id number] ? : ? 1955 (Age: 57) ??F [...] types 16,18,31,33,35, 39,45,51,52,56,58, 59,66, and 68 by board stacker mediated amplification. Comments Document reviewed and electronically signed by: ? System Interface ? Report date: 07/09/2013 By the signature above, the attending physician certifies that he/she has personally conducted a gross and/or microscopic examination of the described specimens and rendered or confirmed the above diagnosis. End of Report [facility] 07/02/2013 07/03/2013 Meagan Christine PA-C PATHOLOGY ORDERA BLES [facility] [address] [place] [address] documented in this encounter Visit Diagnoses Not on filedocumented in this encounter Care Teams Trouble Lineman Relationship Specialty Start Date End Date Unknown, Provider, PCP - General 06/17/10 04/17/22 documented as of this encounter
--- OUTSIDE RECORDS SUMMARY | 2023-12-30 00:57 | XMS_ITS | Encounter Summary ---
Author Organization [facility] Address [address] [place] [address] Care Team Providers Care Food And Beverage Service Manager Name Role Phone Unavailable Primary Care Provider Unavailabl e Encounter Details Date Type Department Care Team (Late st Contact Info) Description 02/08/2007 Results Only [facility] - [facility] [address] [place] [address] Katerina Leger, PRINCIPAL DATABASE DEVELOPER [address] [place] [address] Social History Tobacco Use Types [...] LUIS REJI Hilario ? Accession #: ? [id number] : ? 1955 (Age: 51) ??F ?Collect Date: ? 02/08/2007 Location: ? [facility] ? Receive Date: ? 02/09/2007 Provider: ?KATERINA LEGER HOG SCALDER Copy to: ? Specimen/Source: ?ThinPrep Pap Test, Endocervix, processed on [employer] ThinPrep Imaging System, with manual evaluation Last Menstrual Period: ? 07/23 Other: ? Additional clinical information: Yes to [employer] Clinical/Treatment History, Vulvar CA HPVA - HPV [...] Report [facility] 02/08/2007 02/09/2007 Katerina Leger PRINCIPAL DATABASE DEVELOPER PATHOLOGY ORDERABLES Performing Organization Address City/State/[facility] Co de Phone Number [facility] [address] [place] [address] documented in this encounter Visit Diagnoses Not on filedocumented in this encounter
--- OUTSIDE RECORDS SUMMARY | 2023-12-30 00:57 | XMS_ITS | Encounter Summary ---
Author Organization [facility] Address [address] [place] [address] Care Team Providers Care Cardiovascular Or Nurse Name Role Phone Unknown, Provider Primary Care Provider Encounter Details Date Type Department Care Team (Latest Contact Info) Description 11/06/2013 13:03 EDT - 11/06/2013 23:59 EDT Hospital Encounter [address] [address] Unknown, Provider, Discharge Disposition: Home or Self Care Social History Tobacco Use Types Packs/Day Years Used Date Smoking Tobacco: Never Assessed Sex and Gender Information Value Date Recorded Sex Assigned at Not on file Gender Identity Not on file Sexual Orientation Not on file documented as of this encounter Discharge Disposition Disposition Code Departure Means Destination Home or Self [facility] documented in this encounter Plan of Treatment Not on file documented as of this encounter Visit Diagnoses Not on filedocumented in this encounter Care Teams Cardiovascular Or Nurse Relationship Specialty Start Date End Date Unknown, Provider, PCP - General 06/17/10 04/17/22 documented as of this encounter
--- OUTSIDE RECORDS SUMMARY | 2023-12-30 00:57 | XMS_ITS | Encounter Summary ---
Author Organization [facility] Address [address] [place] [address] Care Team Providers Care Licensed Occupational Therapy Assistant Name Role Phone Unavailable Primary Care Provider Unavailabl e Encounter Details Date Type Department Care Team (Late st Contact Info) Description 02/28/2008 Before PRISM Converted Visit ([place]) [facility] Adult Primary Care - [address] [phone] Katerina Braga, REAL ESTATE SALESPERSON [address] [place] [phone] Social History Tobacco Use Types Packs/Day Years [...] EST 03/13/2008 8:54 EST Katerina P Arsen REAL ESTATE SALESPERSON MICROBIOLOGY - GENER AL ORDERABLES [facility] [address] [place] [address] * CYTOPATHOLOGY (02/28/2008 0:00 EST) Pathology Report: CYTOPATHOLOGY REPORT ? Reports generated via electronic interface contain original data; ? however they are lacking the format of the original report. ? Caution should be taken when reading/interpreti ng unformatted reports. ? Name: ? REJI SMITH ? Accession #: ? [id number] ? : ? 1955 (Age: 52) ??F ?Collect Date: ? 02/28/2008 ? Location: ? [facility] ? Receive Date: ? 02/29/2008 ? Provider: ?KATERINA ARSEN AIR MOTOR REPAIRER ? Copy to: ? Specimen/Source: ?Pap Test, Endocervix, ThinPrep Imaging System with ? manual evaluation ? Last Menstrual Period: ? INVESTMENT ASSOCIATE ? Previous Gynecologic Pathology: ? Carcinoma: Vulvar [...] OTONIEL ARGUELLO 02/28/2008 02/29/2008 Katerina P Arsen REAL ESTATE SALESPERSON PATHOLOGY ORDERABLES Performing Organization Address City/State/[facility] Co de Phone Number [facility] [address] [place] [address] documented in this encounter Visit Diagnoses Not on filedocumented in this encounter
--- OUTSIDE RECORDS SUMMARY | 2023-12-30 00:57 | XMS_ITS | Encounter Summary ---
Author Organization [facility] Address [address] [place] [address] Care Team Providers Care Director Women Name Role Phone Meagan Christine PA-C Primary Care Provider + Encounter Details Date Type Department Care Team (Late st Contact Info) Description 04/22/2022 Lab Requisition [facility] Pathology & Laboratory Medicine - [address] [address] Richard Fiore MD [address] [place] [address], [address] [place], [place] [id number] Encounter for screening for malignant neoplasm of [...] management options, if applicable. 04/23/2022 16:27 EST [facility] Final Diagnosis A. COLON, 45 CM, POLYP X2: Tubular adenoma. 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 04/23/2022 16:27 [facility] Attestation By the signature below, the attending physician certifies that they have 1) personally conducted a gross and/or microscopic examination of the described specimen(s), and/or personally interpreted the results of laboratory testing of the described specimen(s), and 2) personally rendered or confirmed the above diagnosis. 04/23/2022 16:27 [facility] at 1627 Clinical History Family hx of colon cancer; colon cancer screening 04/23/2022 16:27 [facility] Gross Description A. Received in formalin labelled with proper patient identification (initials R, P) and polyp at 45 cm x2 are two gruber tissues (0.5 x 0.1 x 0.1 cm and 0.3 x 0.2 x 0.1 cm). Entirely submitted in A1. VIANNEY MCGREGOR 04/23/2022 7:41 04/23/2022 16:27 [facility] Performing Lab [facility] 04/23/2022 16:27 [facility] Scanned Images 04/23/2022 16:27 [facility] Tissue ENTIRE COLON / Unknown 04/22/2022 7:49 EST 04/22/2022 19:38 EST Richard Fiore MD PATHOLOGY ORDERABLES [facility] [address] [place] [address] documented in this encounter Visit Diagnoses Diagnosis Encounter for screening for malignant neoplasm of colon Special screening for malignant neoplasms, colon documented in this encounter Care Teams Director Women Relationship Specialty Start Date End Date Meagan Christine PA-C [address] [place] [phone] PCP - General 04/18/22 documented as of this encounter
[2023-12-30] MEDS: Barium Sulfate 2% W/V-Creamy Vanilla Smoothie 450 ML BTL PO ×2 (12:35→12:36)
[2023-12-30] MEDS: Omnipaque 350 MG/ML 100 ML BTL IJ (15:11)
== END 2023-12-30 00:58 ==
LOC: DI 00:38
PROVIDERS: PCP Physician Assistant Medical; Visit Provider Physician Assistant Medical
DX: R10.32 Left lower quadrant pain (principal)
CPT/HCPCS: 74177; J3490

== ENCOUNTER 2024-01-04 19:02 | Outpatient (REF) | payer MEDICARE, SELFPAY ==
--- OUTSIDE RECORDS SUMMARY | 2024-01-04 19:05 | XMS_ITS | Data Portability ---
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 Education was provided on healthy nutrition, including a diet rich in fruits and vegetables, minimizing simple carbohydrates, salt, and saturated fats. Encouraged regular cardiovascular exercise such as walking at least 30 minutes daily, 5 times per week. Emphasized preventive health measures and educated pt on fall prevention and community-based lifestyle interventions to help reduce health risks and promote healthy living. Personalized prevention plan (PPP) completed and reviewed with patient. Patient was given written copy of PPP at conclusion of visit, detailing prior screening and 5-10 year future screening plan including: screenings for breast cancer and colorectal cancer, immunizations, and other age appropriate screenings consistent with USPSTF and ACIP guidelines Not available 11/16/2023 10:32:06 Plan of Treatment Reminders Order Date Submit Date Provider Last Modified By Organization Details Last Modified Time Details Appointments Follow Up 30 2023 03:30P M Not available Not available Not available Lab influenza virus A + B + SARS-CoV- 2 (COVID19) Ag panel, rapid IA, upper respirato ry specimen 2023 024 [email or web address] [facility], [address] [place] [address], [address], [place], [address], 10/28/2023 10:50:28 C diff toxin DNA, stool 2023 024 [facility] ([facility]), [address] [place] [address] [place], [address], 11/22/2023 23:09:02 gastroint estinal pathogens panel, culture, stool 2023 024 [facility] ([facility]), [address] [place] [address] [place], [address], 11/24/2023 08:33:37 O&P (ova & parasites ), stool 2023 024 [facility] ([facility]), [address] [place] [address] [place], [address], 11/29/2023 15:20:11 CMP, serum or plasma 2023 024 [facility] (Registration ), [address] [place] [address] [place], [address], 11/22/2023 22:11:58 celiac disease comprehen sive panel, serum 2023 024 [facility] (Registration ), [address] [place] [address] [place], [address], 11/24/2023 12:46:36 CBC w/ auto diff 2023 024 [facility] (Registration ), [address] [place] [address] [place], [address], 11/22/2023 21:49:55 venipunct ure [address] [facility] (Registration ), [address] [place] [address] [place], [address], 11/22/2023 14:24:57 Referral None recorded. Procedures None recorded. Surgeries None recorded. Imaging MAMMO, screening , digital, bilateral - LAST 12/21/222023 024 [facility], [address], [place], [address], 12/29/2023 14:08:22 Medication Orders lisinopri l 20 mg tablet 2023 024 h[facility], [address] [place] [address], [address], 01/04/2024 16:14:25 nifedipin e ER 30 mg tablet,ex tended release 2023 024 hanny [facility], [address] [place] [address], [address], 11/16/2023 17:53:44 fluoxetin e 20 mg capsule 2023 024 hanny [facility], [address] [place] [address], [address], 11/16/2023 17:58:55 rosuvasta tin 10 mg tablet 2023 024 brigitte [facility], [address] [place] [address], [address], 11/16/2023 17:58:55 loratadin e 10 mg tablet 2023 024 [facility], [address] [place] [address], [address], 11/16/2023 17:52:56 ondansetr on 4 mg disintegr ating tablet 2023 024 [email or web address] [facility], [address] [place] [address], [id number], 11/22/2023 14:22:13 Patient TargetsNo targets recorded. Patient Instructions Encounter Date Encounter Id Patient Instructions Last Modified By Organization Details Last Modified Time 10/28/2023 [id number] 1. You are COVID-positive. 2. Your lung exam is reassuring. No signs of pneumonia. No wheezing. 3. I have offered you Tessunshineon Perlalex to help with cough but you have declined. 4. Please monitor your cough. I do expect cough will linger and then should slowly begin to improve. Afterwards I expect there will be some degree of low energy. If you feel like your cough is worsening, you develop fever or you have a prolonged course to return to normal please seek reevaluation. 5. I do not expect you should have any significant sudden worsening of symptoms. If so please seek sooner follow-up. [email or web address] Not available 10/28/2023 11:11:42 11/16/2023 [id number] Discussed and explained advance directives such as standard forms to the {{patient caregiv er patient and caregiver}}. Face to face discussion lasted for a duration of ___ minutes. Not available 11/16/2023 10:32:06 11/22/2023 [id number] Today, we are checking some bloodwork to evaluate for infection or anemia (low iron), as well as kidney function, liver enzymes, electrolytes, and a celiac panel to look for gluten allergy. We will call with some results tomorrow, and the celiac panel may take a few extra days. You will collect stool studies at home, and deliver those to the [facility] lab within 2 hours of collecting those to be tested for GI pathogens that can cause diarrhea. As discussed, we cannot test for giardia at this time due to lab availability. We will call when these results are returned as well. For now, you can use the prescription nausea medication (ondansetron), up to 3 times per day. When nausea is better managed, be sure to push fluids, and a bland diet (bananas, rice, applesauce, toast). [email or web address] Not available 11/22/2023 14:12:31 Reason for Referral Physical Therapist Referral for Pain in right hip joint Referring Physician: Chelita Weaver, Family Medicine, Encounter Date: 04/13/2023 Results Created Date Observation Date Name Description Value Unit Range Abnormal Flag Note LastModifiedBy Organization Detail LastModifiedTime 10/28/19 24 10/28/2023 influ cinthya virus A + B + SARS- CoV-2 (COVI D19) Ag panel , rapid IA, upper respi rator y speci men Influenza A negati ve Not Available [address], [place], [address], 10/28/2023 10:31:23 10/28/19 24 10/28/2023 influ cinthya virus A + B + SARS- CoV-2 (COVI D19) Ag panel , rapid IA, upper respi rator y speci men Influenza B negati ve Not Available [address], [place], [address], 10/28/2023 10:31:23 10/28/19 24 10/28/2023 influ cinthya virus A + B + SARS- CoV-2 (COVI D19) Ag panel , rapid IA, upper respi rator y speci men SARS-COV-2 positi ve Not Available [address], [place], [address], 10/28/2023 10:31:23 11/22/19 24 11/22/2023 COMPL ETE BLOOD COUNT W/DIF F WBC 5.79 10_3/ uL 4.4-10 .8 normal Not Available [address] [place], [address] 11/22/2023 21:49:55 11/22/19 24 11/22/2023 COMPL ETE BLOOD COUNT W/DIF F RBC 3.88 10_6/ uL 3.93-5 .22 low Not Available [address] [place], [address] 11/22/2023 21:49:55 11/22/19 24 11/22/2023 COMPL ETE BLOOD COUNT W/DIF F HGB 12.8 g/dL 11.2-1 5.7 normal Not Available [address] [place], [address] 11/22/2023 21:49:55 11/22/19 24 11/22/2023 COMPL ETE BLOOD COUNT W/DIF F HCT 39.4 % 36.0-4 6.0 normal Not Available [address] [place], [address] 11/22/2023 21:49:55 11/22/19 24 11/22/2023 COMPL ETE BLOOD COUNT W/DIF F MCV 102 fL 80-95 high Not Available Onofre mullen [address] [place], [address] 11/22/2023 21:49:55 11/22/19 24 11/22/2023 COMPL ETE BLOOD COUNT W/DIF F MCH 33.0 pg 27.0-3 3.0 normal Not Available [address] [place], [address] 11/22/2023 21:49:55 11/22/19 24 11/22/2023 COMPL ETE BLOOD COUNT W/DIF F MCHC 32.5 % 32.0-3 6.0 normal Not Available [address] [place], [address] 11/22/2023 21:49:55 11/22/19 24 11/22/2023 COMPL ETE BLOOD COUNT W/DIF F RDW 12.1 % 11.7-1 4.6 normal Not Available [address] [place], [address] 11/22/2023 21:49:55 11/22/19 24 11/22/2023 COMPL ETE BLOOD COUNT W/DIF F platelet count 280 10_3/ uL 130-40 0 normal Not Available [address] [place], [address] 11/22/2023 21:49:55 11/22/19 24 11/22/2023 COMPL ETE BLOOD COUNT W/DIF F MPV 9.9 fL 8.0-11 .0 normal Not Available [address] [place], [address] 11/22/2023 21:49:55 11/22/19 24 11/22/2023 COMPL ETE BLOOD COUNT W/DIF F neutrophils % 71.8 % Not Available [address] [place], [address] 11/22/2023 21:49:55 11/22/19 24 11/22/2023 COMPL ETE BLOOD COUNT W/DIF F lymphocytes % 16.6 % Not Available [address] [place], [address] 11/22/2023 21:49:55 11/22/19 24 11/22/2023 COMPL ETE BLOOD COUNT W/DIF F monocytes % 9.2 % Not Available [address] [place], [address] 11/22/2023 21:49:55 11/22/19 24 11/22/2023 COMPL ETE BLOOD COUNT W/DIF F eosinophils % 1.6 % Not Available [address] [place], [address] 11/22/2023 21:49:55 11/22/19 24 11/22/2023 COMPL ETE BLOOD COUNT W/DIF F basophils % 0.5 % Not Available [address] [place], [address] 11/22/2023 21:49:55 11/22/19 24 11/22/2023 COMPL ETE BLOOD COUNT W/DIF F immature grans % 0.3 % Not Available [address] [place], [address] 11/22/2023 21:49:55 11/22/19 24 11/22/2023 COMPL ETE BLOOD COUNT W/DIF F nucleated RBC 0.0 % 0.0-0. 3 normal Not Available [address] [place], [address] 11/22/2023 21:49:55 11/22/19 24 11/22/2023 COMPL ETE BLOOD COUNT W/DIF F absolute neutrophil count 4.16 10_3/ uL 1.2-6. 7 normal Not Available [address] [place], [address] 11/22/2023 21:49:55 11/22/19 24 11/22/2023 COMPL ETE BLOOD COUNT W/DIF F absolute lymphocyte count 0.96 10_3/ uL 1.2-3. 4 low Not Available [address] [place], [address] 11/22/2023 21:49:55 11/22/19 24 11/22/2023 COMPL ETE BLOOD COUNT W/DIF F absolute monocyte count 0.53 10_3/ uL 0.1-0. 8 normal Not Available [address] [place], [address] 11/22/2023 21:49:55 11/22/19 24 11/22/2023 COMPL ETE BLOOD COUNT W/DIF F absolute eosinophil count 0.09 10_3/ uL 0.0-0. 7 normal Not Available [address] [place] [place], [address] 11/22/2023 21:49:55 11/22/19 24 11/22/2023 COMPL ETE BLOOD COUNT W/DIF F absolute basophil count 0.03 10_3/ uL 0.0-0. 2 normal Not Available [address] [place] [place], [address] 11/22/2023 21:49:55 11/22/19 24 11/22/2023 COMPR EHENS CALDERON METAB OLIC PANEL calcium 9.8 mg/dL 8.5-10 .1 normal Not Available [address] [place] [place], [address] 11/22/2023 22:11:58 11/22/19 24 11/22/2023 COMPR EHENS CALDERON METAB OLIC PANEL glucose 112 mg/dL 74-106 high Not Available Onofre mullen [address] [place], [address] 11/22/2023 22:11:58 11/22/19 24 11/22/2023 COMPR EHENS CALDERON METAB OLIC PANEL BUN 28 mg/dL 7-18 high Not Available Onofre mullen [address] [place], [address] 11/22/2023 22:11:58 11/22/19 24 11/22/2023 COMPR EHENS CALDERON METAB OLIC PANEL creatinine 0.8 mg/dL 0.55-1 .02 normal Not Available [address] [place] [place], [address] 11/22/2023 22:11:58 11/22/19 24 11/22/2023 COMPR EHENS CALDERON METAB OLIC PANEL estimated GFR 79.71 mL/min /1.73m 2 The eGFR is calcu lated from a serum creat inine using the CKD-E PI 2020 equat ion. Other varia bles requi red for the equat ion are gende r and age; this equat ion does not inclu de a race coeff icien t. This equat ion has simil ar overa ll perfo rmanc e to previ ous equat ions excep t value s may diffe r, in parti cular , in patie nts with highe r value s of eGFR and young er-ag ed adult s. Not Available [address] [place] [place], [address] 11/22/2023 22:11:58 11/22/19 24 11/22/2023 COMPR EHENS CALDERON METAB OLIC PANEL total protein 7.7 g/dL 6.4-8. 2 normal Not Available [address] [place] [place], [address] 11/22/2023 22:11:58 11/22/19 24 11/22/2023 COMPR EHENS CALDERON METAB OLIC PANEL albumin 4.3 g/dL 3.4-5. 0 normal Not Available [address] [place], [address] 11/22/2023 22:11:58 11/22/19 24 11/22/2023 COMPR EHENS CALDERON METAB OLIC PANEL bilirubin, total 0.46 mg/dL 0.2-1. 0 normal Not Available [address] [place], [address] 11/22/2023 22:11:58 11/22/19 24 11/22/2023 COMPR EHENS CALDERON METAB OLIC PANEL alk phos 60 U/L 46-116 normal Not Available [address] [place], [address] 11/22/2023 22:11:58 11/22/19 24 11/22/2023 COMPR EHENS CALDERON METAB OLIC PANEL sodium 139 mmol/ L 136-14 5 normal Not Available [address] [place], [address] 11/22/2023 22:11:58 11/22/19 24 11/22/2023 COMPR EHENS CALDERON METAB OLIC PANEL potassium 4.6 mmol/ L 3.5-5. 1 normal Not Available [address] [place], [address] 11/22/2023 22:11:58 11/22/19 24 11/22/2023 COMPR EHENS CALDERON METAB OLIC PANEL chloride 101 mmol/ L 98-107 normal Not Available [address] [place], [address] 11/22/2023 22:11:58 11/22/19 24 11/22/2023 COMPR EHENS CALDERON METAB OLIC PANEL CO2 26.1 mmol/ L 21.0-3 2.0 normal Not Available [address] [place], [address] 11/22/2023 22:11:58 11/22/19 24 11/22/2023 COMPR EHENS CALDERON METAB OLIC PANEL anion gap 11.9 mmol/ L 3-11 high Not Available [address] [place] [place], [address] 11/22/2023 22:11:58 11/22/19 24 11/22/2023 COMPR EHENS CALDERON METAB OLIC PANEL AST 20 U/L 15-37 normal Not Available Onofre mullen [address] [place], [address] 11/22/2023 22:11:58 11/22/19 24 11/22/2023 COMPR EHENS CALDERON METAB OLIC PANEL ALT 30 U/L 14-59 normal Not Available Onofre mullen [address] [place], [address] 11/22/2023 22:11:58 11/22/19 24 11/22/2023 C DIFF PCR C diff PCR Negati ve negati ve Not Available [address] [place], [address] 11/22/2023 23:09:02 11/22/19 24 11/23/2023 FECAL BACTE RIAL PATHO GENS PCR salmonella PCR Negati ve negati ve Not Available [facility] ([facility]) [address] [place] [address] [place], [address], 11/24/2023 04:37:01 11/22/19 24 11/23/2023 FECAL BACTE RIAL PATHO GENS PCR shigella/ent eroinvasive ecoli Negati ve negati ve Not Available [facility] ([facility]) [address] [place] [address] [place], [address], 11/24/2023 04:37:01 11/22/19 24 11/23/2023 FECAL BACTE RIAL PATHO GENS PCR campylobacte r PCR Negati ve negati ve Not Available [facility] ([facility]) [address] [place] [address] [place], [address], 11/24/2023 04:37:01 11/22/19 24 11/23/2023 FECAL BACTE RIAL PATHO GENS PCR shiga toxin PCR Negati ve negati ve Test perfo rmed or refer red by [facility] [address] [place] [address] Not Available [facility] ([facility]) [address] [place] [address] [place], [address], 11/24/2023 04:37:01 11/22/19 24 11/24/2023 KARMEN C DISEA SE PANEL IgA 270 mg/dL 85-499 Not Available [facility] ([facility] ) [address] [place] [address] [place], [address], 11/24/2023 12:43:37 11/22/19 24 11/24/2023 KARMEN C DISEA SE PANEL tissue transglutami nase IgA <4.0 cu <20.0 A negat calderon resul t may be due to IgA defic iency and does not rule out karmen c disea se. E X09 E E X09 E Negat calderon: <20.0 CU E X09 E E X09 E Weak Posit calderon: 20.0- 30.0 CU E X09 E E X09 E Posit calderon: >30.0 CU Resul ts were obtai corwin with the Werfe n QUANT A Flash h-tTG IgA chemi lumin escen t immun oassa y. Value s obtai corwin with diffe rent manuf actur ers' assay metho ds may not be used inter kendall eably . Not Available [facility] (Registration ) [address] [place] [address] , [place], [address], 11/24/2023 12:43:37 11/22/19 24 11/24/2023 KARMEN C DISEA SE PANEL interpretati on (See Note) Resul t: Negat calderon Serol ogy. Karmen c disea se unlik td. Appro ximat td 10% of patie nts with karmen c disea se are seron egati ve. Patie nts who are alrea dy adher ing to a glute n-woodrow e diet may also be seron egati ve. If karmen c disea se is highl y clini mikel suspe cted, refer ral to gastr oente rolog y for addit ional evalu ation is recom renata ceja. Test perfo rmed or refer red by [facility] [address], [place] [address] Not Available [facility] (Registration ) [address] [place] [address] , [place], [address], 11/24/2023 12:43:37 11/22/19 24 11/29/2023 OVA AND ROSANNE ITE, FECES ova and parasite, feces SEE BELOW RESUL T: FINAL 11/28 1212 SOURC E: STOOL , STLP OVA AND ROSANNE ITE, MICRO SCOPY , F FINAL No rosanne ites seen. Crypt ospor idium , Cyclo spora , and micro spori sandra are not readi ly detec betsy by this metho d. Singl e negat calderon speci men does not rule out rosanne itic infec tion. Test Perfo rmed by: [facility] [address], [place] [address] Lab Direc tor: Mariann Quintanilla nn Ph.D. ; CLIA# [id number] Not Available [facility] ([facility]) [address] [place] [address] [place], [address], 11/29/2023 15:14:49 12/27/19 24 12/27/2023 CREAT ININE creatinine 0.8 mg/dL 0.55-1 .02 normal Not Available [address] [place], [address] 12/27/2023 17:33:40 12/27/19 24 12/27/2023 CREAT ININE estimated GFR 79.71 mL/min /1.73m 2 The eGFR is calcu lated from a serum creat inine using the CKD-E PI 2020 equat ion. Other varia bles requi red for the equat ion are gende r and age; this equat ion does not inclu de a race coeff icien t. This equat ion has simil ar overa ll perfo rmanc e to previ ous equat ions excep t value s may diffe r, in parti cular , in patie nts with highe r value s of eGFR and young er-ag ed adult s. Not Available [address] [place], [address] 12/27/2023 17:33:40 12/30/19 24 12/30/[address]23 CT IMAGI NG REPOR T CT imaging report Patie nt Name: Alba Muñiz Unit #: [id number] Loc: DI Order ing Provi dorina: Yanelis May Accou nt #: [id number] Statu s: REG CLI Prima ry Care Provi dorina: Yanelis May Date of Exa m: 12/29 Sex: F : [birth year] Age: 68 Exam( s) a CT:CT abdom en pelvi s w Exam( s) CT ABDOM EN PELVI S W EXAM: CT ABDOM EN PELVI S W CLINI JESICA HISTO RY: LEFT LOWER QUAD PAIN, DIARR HEA, R10.3 2 TECHN IQUE: Imagi ng Saul col: Axial compu betsy tomog syl image s with coron al and sagit niranjan refor matte d image s were creat ed and revie wed. CONTR AST MATER IAL: Intra venou s: Omnip aque 350 Contr ast volum e:100 mL Oral: Yes MARTINA RISON : No exams were avail able for martina rison FINDI NGS: ABDOM EN: Lung Bases : There is a calci fied granu marie in the left lower lobe. Liver : Lisseth l densi ty. No measu rable mass. Francisca l, Super ior Mesen teric , and Splen ic Veins : Unrem arkab le. Gallb ladde r and Bilia ry Tract : No radio dense calcu suzy or dilat ion. Pancr eas: Lisseth l densi ty, no abnor mal calci ficat ions or infla mmato ry proce ss. Splee n: Lisseth l. Adren als: No maldonado s seen. Kidne ys: Lisseth l size, conto ur and axis. No radio dense stone s or obstr uctiv e uropa thy. No maldonado s seen. Abdom inal Aorta : Abdom inal porti on non-d ilate d. Ather oscle rotic calci ficat ion is prese nt. Bowel : There is a moder ate amoun t of stool throu ghout the colon sugge sting const ipati on. There is a duode nal diver ticul um adjac ent to the head of the pancr eas. There is no evide nce of bowel obstr uctio n or bowel wall thick ening . No evide nce of appen dicit is. Perit leyva Cavit y: No ascit es, colle ction or mesen teric infla mmato ry respo nse. No free air. Lymph Nodes : Withi n lisseth l limit s. Bones : Withi n lisseth l limit s for the patie nt's age. Soft Tissu es: Unrem arkab le. PELVI S: Bladd er: Symme tric diste ntion , no gross wall thick ening . Repro ducti ve Organ s: There is a calci fied uteri ne fibro id prese nt. Lymph Nodes : Withi n lisseth l limit s. Bones : Withi n lisseth l limit s for the patie nt's age. IMPRE SSION : 1. No acute abdom inal or pelvi c proce ss. 2. There is a moder ate amoun t of stool in the colon . RADIA TION DOSE DELIV ERED: 273.8 8mGy. cm Total DLP DATA REPOS ITORY : All CT scans at this [facility] are submi tted to the [employer] Data Geovanny try (NRDR ) Dose Index Geovanny try (DIR) with the ISOR[employer] ge of Radio logy (ACR) . RADIA TION OPTIM IZATI ON: All CT scans at this [facility] use at least one of these dose optim izati on techn iques : autom ated expos ure contr ol; mA and/o r kV adjus tment per patie nt size (incl udes targe betsy exams where dose is match ed to clini jesica indic ation ); or itera tive recon struc tion. 13- 0002: Total DLP = 0.00 mGy-c m Order ed By: Yanelis May CC: ----- ----- ----- ----- ----- ----- ----- ----- ----- ----- ----- ----- ----- ----- ----- - Dicta betsy By: Dominic Fiore M.D. 12/29 Trans cribe d By: Daniel Fiore rt 12/29 This is privi leged , confi denti al infor matio n inten ded only for the provi dorina named . Any use or distr ibuti on by any perso n other than this provi dorina is stric tly prohi bited . If you recei ve this repor t in error , pleas e notif y us immed iatel y at [phone] and retur n the origi nal repor t to us at the addre ss above . Thank -you. Not Available [facility] [address], [place], [address] 12/30/2023 15:52:57 12/29/19 24 12/29/2023 mammo graph y imagi ng repor t Marco Antonio farrell Name: Jasmine Melchor Unit #: [id number] Loc: DI Orderi ng Provid er: Deidra mullen,Nila WILLIS Accoun t #: [id number] Status : REG CLI Primar y Care Provid er: Deidra mullen,Nila WILLIS Date of Exa m: Sex: F Admiss ion Date: : 1955 Age: 68 Exam(s ) MG MAMMO SCREEN ING EXAM: MG MAMMO SCREEN ING CLINIC AL HISTOR Y: SCREEN ING MAMMO, Z12.31 TECHNI QUE: Mammog tawanda were interp reted accord ing to the usual protoc ol includ ing comput er analys is with CAD system , tomosy nthesi s and C-view imagin g. COMPAR RYANN: 2014 throug h 2022 FINDIN GS: The breast s are compos ed of hetero geneou sly dense fibrog landul ar densit ies, Breast Densit y catego ry C. No suspic ious masses or suspic ious microc alcifi cation s are seen. No skin thicke catie or abnorm al axilla ry lymph nodes are seen. There has been no signif icant change from prior exams. IMPRES NORMA: BI-RAD S Catego ry 1, Negati ve mammog agustina. Yearly screen ing mammog syl is recomm ended. Breast Densit y Catego ry C, hetero geneou sly Dense. The mammog agustina demons trates the patijayy t's breast tissue is dense. Dense breast tissue is very common and is not abnorm al but dense breast tissue can make it harder to find cancer on a mammog agustina. Also, dense breast tissue may increa se breast cancer risk. This inform ation about the result of the mammog agustina report was provid ed to the patijayy t to raise their awaren ess. Use this report when you speak with the patien t about their risks for breast cancer , which includ es their family histor y. At that time, you may recomm end additi onal screen ing tests (Ultra sound or MRI) as they might be useful based on their risk. A negati ve radiog raphic report should not delay biopsy if a domina nt or clinic ally suspic ious mass is presen t. Up to ten percen t of cancer s are not identi fied on mammog syl. A negati ve report may reinfo rce clinic al impres norma. Adenos is and dense breast s may obscur e an underl emanuel neopla sm. False positi ve report s averag e 6 to 10%. Ordere d By: Deidra mullen,Nila WILLIS CC: ------ ------ ------ ------ ------ ------ ------ ------ ------ ------ ------ ------ - Dictat ed By: Miguel Ángel Tenorio [id number] Transc ribed By: Gopal Sullivan 1134 This is privil eged, confid ential inform ation intend ed only for the provid er named. Any use or distri bution by any person other than this provid er is strict ly prohib ited. If you receiv e this report in error, please notify us immammtai abrahan at and return the origin al report to us at the addres s above. Thank- you. [email or web address] [facility] [address], [place], [address] 12/29/2023 14:08:06 01/01/20 24 10/17/2019 DEXA No observ ation record ed. Not Available 12/31 21:35:54 01/01/20 24 11/29/2019 bone densi ty No observ ation record ed. Not Available 12/31 21:37:17 01/01/20 24 01/28/2021 MRI, neck No observ ation record ed. Not Available 12/31 21:37:20 01/01/2010/03/2018 MAMMO charlie No observ ation record ed. Not Available 12/31 21:37:21 01/01/20 24 11/23/2019 MAMMO charlie No observ ation record ed. Not Available 12/31 21:37:21 01/01/20 24 11/19/2020 MAMMO charlie No observ ation record ed. Not Available 12/31 21:37:22 01/01/20 24 12/09/2021 MAMMO charlie No observ ation record ed. Not Available 12/31 21:37:23 01/01/20 24 12/21/2022 MAMMO charlie No observ ation record ed. Not Available 12/31 21:37:24 01/01/20 24 08/06/2021 imagi ng/di agnos tic resul t No observ ation record ed. Not Available 12/31 21:37:30 Result Notes None recorded. Problems Name Problem SNOMED Code Status Onset Date Resolution Date Notes Provider Name and Address Organization Details Recorded Time Nicotine dependen ce 11020846 Active 2009 Problem Code: Z87.891; Problem Code Type: ICD-10; Not Available [facility], [facility] 3 04:53:37 Major depressi on, single episode 94216586 Active 200911/11/19 23 - Comments only - Meagan Rubio PA-C - - DEPRESSI ON Well maintain ed on PROZAC 20mg QD Problem Code: F32.9; Problem Code Type: ICD-10; Not Available [facility] 3 04:53:37 Primary malignan t neoplasm of vulva 46939361 Completed 200902/08/2010 Problem Code: 184.4; Problem Code Type: ICD-9; Not Available [facility], [facility] 3 04:53:37 Carpal tunnel syndrome 02892105 Completed 200902/08/2010 Not Available [facility] 3 04:53:37 Hyperlip idemia 74707296 Active 200911/11/19 23 - Comments only - Meagan Rubio PA-C - - HYPERLIP IDEMIA To continue on CRESTOR 10mg QD unless change is indicate d by results of today's laborato ry testing Problem Code: E78.5; Problem Code Type: ICD-10; Not Available [facility] 3 04:53:37 Dizzines s 621508414 Completed 200902/08/2010 Not Available [facility] 3 04:53:37 Essentia l hyperten norma 99486957 Active 201111/11/19 23 - Comments only - Meagan Rubio PA-C - - HTN Stable on PROPRANO LOL 10mg BID Problem Code: I10; Problem Code Type: ICD-10; Not Available [facility] 3 04:53:38 Cervical spondylo sis without myelopat hy 989426174 Active 195911/06/19 22 - Comments only - Meagan Rubio PA-C - Patient agrees to reach out to [facility] when she feels in a position to move forward with neurosur gical consult, as carlos alberto ceja by [facility] as next step in manageme nt. Problem Code: M47.812; Problem Code Type: ICD-10; Not Available [facility] 3 04:53:38 Dysuria 11630586 Completed 201412/04/2014 Problem Code: R30.0; Problem Code Type: ICD-10; Not Available [facility] 3 04:53:38 Adult health examinat ion Active 201411/11/19 23 - Comments only - Meagan Rubio PA-C - Will arrange for mammogra m @ [facility] when due in late November. Problem Code: Z00.00; Problem Code Type: ICD-10; Not Available [facility] 3 04:53:38 Pain in right hip joint 89339533168 9102 Completed 201508/09/2015 07/09/19 16 - Comments only - Meagan Rubio PA-C - Given high insuranc e deductab le, patient hesitant to accept refer to allow to return to PT. Instead, as first line, patient intends to contact PT provider for copy of at-home exercise sheet used in [facility] [place]. Otherwis e to continue with OTC NSAIDs, topical analgesi cs, ice, etc. Problem Code: M25.551; Problem Code Type: ICD-10; CHELITA WEAVER PA-C [address], [place], [address] , [facility] 3 18:22:45 Palpitat ions 13577592 Active 201511/06/19 22 - Comments only - Meagan Rubio PA-C - Stable on PROPRANO LOL 10mg BID Problem Code: R00.2; Problem Code Type: ICD-10; Not Available [facility] 3 04:53:38 Hearing loss 21642610 Active 2016 Problem Code: H91.90; Problem Code Type: ICD-10; Not Available [facility] 3 04:53:38 Glaucoma 99067755 Active 2017 Problem Code: H40.9; Problem Code Type: ICD-10; Not Available [facility] 3 04:53:38 Disorder of skin and/or subcutan eous tissue 62111114 Completed 201712/21/2017 12/08/19 18 - Comments only - Meagan Rubio PA-C - Will refer patient to dermatnely vines for consider ation towards excision al biopsies Problem Code: L98.9; Problem Code Type: ICD-10; Not Available [facility] 3 04:53:39 Rosacea 890101228 Completed 201712/21/2017 12/08/19 18 - Comments only - Meagan Rubio PA-C - Will trial to treat with RXd METROGEL BID Problem Code: L71.9; Problem Code Type: ICD-10; Not Available [facility] 3 04:53:39 Acquired right hallux valgus 56299029393 4106 Completed 201702/20/2018 02/07/20 18 - Comments only - Meagan Rubio PA-C - As per patient request, will refer to podiatry for treatmen t Problem Code: M20.11; Problem Code Type: ICD-10; Not Available [facility] 3 04:53:39 Allergic rhinitis 71800231 Active 2018 Problem Code: J30.9; Problem Code Type: ICD-10; Not Available [facility] 3 04:53:39 Acute sinusiti s 72500053 Completed 201810/02/2018 09/19/19 19 - Comments only - Meagan Rubio PA-C - Given persiste nt nature of patient' s sxs, will cover with ZITHROMA X as ZPAK Problem Code: J01.90; Problem Code Type: ICD-10; Not Available [facility] 3 04:53:39 Anxiety disorder 083244396 Active 201910/31/19 21 - Comments only - Meagan Rubio PA-C - Mood stable on PROZAC 20mg QD Problem Code: F41.9; Problem Code Type: ICD-10; Not Available [facility] 3 04:53:39 Sleep rest pattern finding 591975389 Active 2019 Not Available [facility] 3 04:53:39 Cellulit is of finger 84600234 Completed 202010/07/2020 10/07/19 21 - Comments only - Tricia WILLIS - - rx for keflex 500mg TID for 10 days - recd warm epsom salt soaks 2-3 times per day - bandage with bacitrac in applied - recd to keep clean and dry - Return to clinic if not improvin g or worsenin g symptoms Problem Code: L03.019; Problem Code Type: ICD-10; Not Available [facility] 3 04:53:40 Dizzines s and giddines s 881383696 Completed 202002/04/2021 02/03/20 21 - Comments only - Meagan Rubio PA-C - No improvem ent on ANTIVERT . Patient provided with educatio nal handouts to instruct on self adminste mayra francis. If sxs fail to improve with same, however, will maintain low index for ENT refer. Problem Code: R42; Problem Code Type: ICD-10; Not Available [facility] 3 04:53:40 Nerve root disorder 59340845 Active 2020 Problem Code: M54.10; Problem Code Type: ICD-10; Not Available [facility] 3 04:53:40 Screenin g mammogra phy Active 2021 Problem Code: Z12.31; Problem Code Type: ICD-10; Not Available [facility] 3 04:53:40 Disorder of skin and/or subcutan eous tissue 39472577 Completed 202111/18/2021 11/06/19 22 - Comments only - Meagan Rubio PA-C - After cleansin g the area with alcohol wipe, lesion was treated with multiple rounds of cryother apy using liquid nitrogen , followin g which bandage dressing was applied. Problem Code: L98.9; Problem Code Type: ICD-10; Not Available [facility] 3 04:53:40 Disorder of skin and/or subcutan eous tissue 56271490 Completed 202112/14/2021 12/01/19 22 - Comments only - Meagan Rubio PA-C - As per patient request, lesion was treated with another round of cryother apy using liquid nitrogen today. If lesion fails to resolve with same, patient agrees to call to obtain refer to ENT/plas tic surgery for more definiti ve excision al BX. F/U PRN. 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 a Completed 201301/12/2023 Not Available [facility] 3 04:53:41 Cervical spondylo sis 029655009 Completed Not Available [facility] 3 04:53:41 Cellulit is of leg, excludin g foot 575059688 Completed 200901/12/2023 Not Available [facility] 3 04:53:41 Partner relation ship problem 09365515498 00 Completed 201509/02/2017 Problem Code: Z63.0; Problem Code Type: ICD-10; Not Available [facility] 3 04:53:41 Acute vaginiti s 55085096 Completed 201409/02/2017 Problem Code: N76.0; Problem Code Type: ICD-10; Not Available [facility] 3 04:53:41 Hyperten sive disorder 90075926 Completed 201101/12/2023 Not Available [facility] 3 04:53:42 Cellulit is 026049159 Completed 200909/02/2017 Problem Code: L03.119; Problem Code Type: ICD-10; CHELITA WEAVER PA-C [address], [place], [address] , [facility] 4 18:06:37 Human papillom a virus screenin g Completed 201309/02/2017 Problem Code: Z11.51; Problem Code Type: ICD-10; Not Available [facility] 3 04:53:42 Family history of malignan t neoplasm of digestiv e organ 092080022 Completed 200909/02/2017 Problem Code: Z80.0; Problem Code Type: ICD-10; Not Available [facility] 3 04:53:42 Cellulit is of finger 66475842 Completed 201409/02/2017 Problem Code: L03.019; Problem Code Type: ICD-10; Not Available [facility] 3 04:53:42 History of clinical finding in subject 221288713 Completed 200901/12/2023 Not Available [facility] 3 04:53:43 Adjustme nt disorder with mixed emotiona l features 11782295 Completed 200901/12/2023 Problem Code: 309.28; Problem Code Type: ICD-9; Not Available [facility] 3 04:53:43 Acute conjunct ivitis 71237171 Completed 201810/29/2020 Problem Code: H10.30; Problem Code Type: ICD-10; Not Available [facility] 3 04:53:43 Senile hyperker atosis 270619207 Completed 201609/02/2017 Problem Code: L82.1; Problem Code Type: ICD-10; Not Available [facility] 3 04:53:43 Pain in right hip joint 39745510742 9102 Active 202207/09/19 16 - Comments only - Meagan Rubio PA-C - Given high insuranc e deductab le, patient hesitant to accept refer to allow to return to PT. Instead, as first line, patient intends to contact PT provider for copy of at-home exercise sheet used in managmen t of contrala teral. Otherwis e to continue with OTC NSAIDs, topical analgesi cs, ice, etc. Problem Code: M25.551; Problem Code Type: ICD-10; [address], [place], [address] , [facility] 3 18:22:45 Cellulit is 487874691 Active 2023 Problem Code: L03.119; Problem Code Type: ICD-10; [address], [place], [address] , [facility] 4 18:06:37 COVID-19 737893366 Active [address], [place], [address] , [facility] 4 10:50:24 Problem Notes None recorded. Procedures Surgical History None recorded. Imaging Results Imaging Date Name Status LastModified by Organiz ation Details LastModified Time 12/29/2023 mammography imaging report completed [email or web address] [facility] [address] [place], [address] 12/29/2023 14:08:06 10/17/2019 DEXA completed Information no t available 01/01/2024 21:35:54 11/29/2019 bone density completed Information not available 01/01/2024 21:37:17 01/28/2021 MRI, neck completed Information no t available 01/01/2024 21:37:20 10/03/2018 MAMMO, screening completed Information not available 01/01/2024 21:37:21 11/23/2019 MAMMO, screening completed Information not available 01/01/2024 21:37:21 11/19/2020 MAMMO, screening completed Information not available 01/01/2024 21:37:22 12/09/2021 MAMMO, screening completed Information not available 01/01/2024 21:37:23 12/21/2022 MAMMO, screening completed Information not available 01/01/2024 21:37:24 08/06/2021 imaging/diagnos tic result completed Information not available 01/01/2024 21:37:30 Procedure Notes None recorded. Medical Equipment None Reported. Allergies Allergen ID Allergen Name Allergen Category Reaction Reaction Severity Criticality Documentation Date Start Date Code Code System Note Provider Name and Address Organization Details Recorded Time 01084 Product containin g 3-hydroxy -3-methyl glutaryl- coenzyme A reductase inhibitor (product) medicatio n myalgias (muscle pain) mild Not available 02/25/20232011 74812 009 SNOMED myalg ias Not Available [facility] 16:06:50 29307 Bactrim medicatio n rash mild Not available 02/25/20232009 97943 9 RxNorm Skin Rash Aller gyRea ction : 'Skin Rash' ; Not Available [facility] 16:06:50 94032 Augmentin medicatio n diarrhea mild Not available 02/25/20232011 27068 2 RxNorm diarr hea Not Available [facility] 3 16:06:50 89623 codeine medicatio n nausea mild Not available 02/25/20232009 2670 RxNorm Nause a/Vom iting /Diar oleg Aller gyRea ction : 'Naus ea/Vo mitin g/Sandra rrhea '; Aller gyCod e: '0040 41028 32'; Aller gyNam e: 'CODE INE'; Aller gyCon ceptT ype: 'NDC' ; Not Available [facility] 3 16:06:51 70868 corn extract food,medi cation nausea Not available Not available 04/13/2023 32392 08 RxNorm KARELY askew, [facility] 3 17:32:05 Medications Name Sig Start Date Stop Date Status Note LastModified by Organization Details LastModified Time Prescript ion - Renewal active fluoxeti ne 20 mg capsule, rosuvast atin 10 mg tablet, proprano lol Not Available Not Available Not Available latanopro st 0.005 % eye drops INSTILL 1 DROP INTO EACH EYE EVERY NIGHT AT BEDTIME active Not Available Not Available No t Available doxycycli ne hyclate 100 mg capsule TAKE 1 CAPSULE BY MOUTH TWICE DAILY FOR 7 DAYS 06/07 completed Not Available Not Available Not Available clindamyc in HCl 300 mg capsule 1 qid 02/27 completed Not Available Not Available Not Available Prozac 40 mg capsule take 1 tab daily 04/08 completed Not Available Not Available Not Available ampicilli n 500 mg capsule 1 CAP twice daily 10/28 completed Not Available Not Available Not Available Keflex 500 mg capsule 1 tab three times daily 12/14 completed Not Available Not Available Not Available lisinopri l 20 mg tablet TAKE ONE TABLET BY MOUTH EVERY DAY active Not Available Not Available No t Available Zithromax 250 mg tablet Take 2 by mouth today, then take 1 by mouth daily x 4 days 09/23 completed Not Available Not Available Not Available Diflucan 150 mg tablet Take 1 by mouth now MR in 3 d if nec 11/23 completed Not Available Not Available Not Available nifedipin e ER 30 mg tablet,ex tended release TAKE ONE TABLET BY MOUTH EVERY DAY active Not Available Not Available No t Available triamcino lone acetonide 0.1 % topical cream APPLY SMALL AMOUNT TOPICALL Y TO THE AFFECTED AREA TWICE DAILY NEEDED active Not Available Not Available No t Available amoxicill in 500 mg tablet 1 CAP twice daily 11/04 completed Not Available Not Available Not Available Medrol 4 mg tablet 1 TAB UD 08/17 completed Not Available Not Available Not Available propranol ol 10 mg tablet TAKE 1 TABLET BY MOUTH TWICE DAILY 05/04 completed Not Available Not Available Not Available meclizine 25 mg tablet Take 1 tablet by mouth three times a day as needed for vertigo 2020 active Not Available Not Available Not Avai lable erythromy patrick 5 mg/gram (0.5 %) eye ointment Apply to affected eye(s) every four hours as directed 08/31 completed Not Available Not Available Not Available lisinopri l 10 mg tablet TAKE 1 TABLET BY MOUTH EVERY DAY 07/11 completed Not Available Not Available Not Available Pravachol 20 mg tablet 1 TAB daily 07/02 completed Not Available Not Available Not Available aspirin 81 mg tablet 1 qd 2009 active Not Available Not Available Not Avai lable hydrochlo rothiazid e 25 mg tablet Take 1 tab by mouth daily 08/27 completed Not Available Not Available Not Available Aspir-81 mg tablet,de layed release Take 1 tab by mouth daily 2009 active Not Available Not Available Not Avai lable lovastati n 20 mg tablet 1TAB QHS 08/14 completed Not Available Not Available Not Available timolol maleate 0.5 % eye drops INSTILL ONE DROP INTO EACH EYE TWO TIMES A DAY active Not Available Not Available No t Available propranol ol 20 mg tablet Take 1 tablet twice a day by oral route. 11/15 completed Not Available Not Available Not Available ondansetr on 4 mg disintegr ating tablet DISSOLVE 1 TABLET ON THE TONGUE THREE TIMES A DAY NEEDED FOR NAUSEA active Not Available Not Available No t Available fluoxetin e 20 mg capsule TAKE ONE CAPSULE BY MOUTH EVERY DAY active Not Available Not Available No t Available loratadin e 10 mg tablet Take 1 tablet every day by oral route in the morning. 2023 active Not Available Not Available Not Avai lable Flexeril 10 mg tablet 1/2-1TAB BID 02/25 completed Not Available Not Available Not Available Augmentin 875 mg tablet 1 TAB BID 10/28 completed Not Available Not Available Not Available Fish Oil 1,000 mg capsule Take 1 tablet by mouth twice daily. 2009 active Not Available Not Available Not Avai lable rosuvasta tin 10 mg tablet TAKE ONE TABLET BY MOUTH AT BEDTIME active Not Available Not Available No t Available Crestor 5 mg tablet Take 1 tablet by mouth every night 10/29 completed Not Available Not Available Not Available Metrogel 1 % topical Apply twice a day 05/11 completed Not Available Not Available Not Available Fish Oil 1 cap qd 2009 active Not Available Not Available Not Avai lable Vitamin D 1CAP daily 04/24 completed Not Available Not Available Not Available multivita min 1 qd 05/08 completed Not Available Not Available Not Available cholecalc iferol (vitamin D3) 25 mcg (1,000 unit) tablet once a day 2014 active Not Available Not Available Not Avai lable Fish Oil 340 mg-1,000 mg capsule Take 1 tablet by mouth twice a day 2009 active Not Available Not Available Not Avai lable hydrochlo rothiazid e 12.5 mg tablet 1 qd 01/24 completed Not Available Not Available Not Available red yeast rice 600 mg tablet 1TAB twice daily 05/08 completed Not Available Not Available Not Available Metrogel 1 % topical gel with pump Apply to affected area twice daily 2017 active Not Available Not Available Not Avai lable Shingrix (PF) 50 mcg/0.5 mL intramusc ular suspensio n, kit Administ er 10/29 completed Not Available Not Available Not Available Vitals Date Recorded Body height Body mass index (BMI) Body weight Body temperature Oxygen saturation Oxygen saturation in Arterial blood by Pulse oximetry Heart rate Respiratory rate Systolic blood pressure Diastolic blood pressure Provider Name and Address Organization Details Last Updated DateTime 4 168.91 cm 21.5 kg/m2 83518.9 7 g 98.6 [degF] 99 % 99 % 58 /min 18 /min 118 mm[Hg] 64 mm[Hg] Bethany Guevara MA [facility] 4 10:19:58 Date Recorded Body height Body mass index (BMI) Body weight Oxygen saturation Oxygen saturation in Arterial blood by Pulse oximetry Heart rate Body temperature Systolic blood pressure Diastolic blood pressure Provider Name and Address Organization Details Last Updated DateTime 4 168.91 cm 22 kg/m2 38407.1 5 g 98 % 98 % 62 /min 98.8 [degF] 136 mm[Hg] 60 mm[Hg] TRI CHANCE LPN [facility] 4 17:11:23 Date Recorded Body height Body mass index (BMI) Body weight Body temperature Oxygen saturation Oxygen saturation in Arterial blood by Pulse oximetry Heart rate Respiratory rate Systolic blood pressure Diastolic blood pressure Provider Name and Address Organization Details Last Updated DateTime 4 168.91 cm 21.5 kg/m2 10360.9 7 g 98.3 [degF] 99 % 99 % 69 /min 18 /min 165 mm[Hg] 75 mm[Hg] Bethany Guevara MA [facility] 4 12:32:55 Date Recorded Body height Body mass index (BMI) Body weight Systolic blood pressure Diastolic blood pressure Provider Name and Address Organization Details Last Updated DateTime 01/04/2024 168.91 cm 21.2 kg/m2 90341.49 g 124 mm[Hg] 62 mm[Hg] TRI CHANCE LPN [facility] 4 15:39:54 Social History Question Answer Notes LastModified by Organizat ion Details LastModified Time Tobacco Smoking Status Former Smoker KARELY askew [facility] 04/13/2023 17:32:56 When Did You Quit Smoking? 16+yearssince estrella Information not available 04/13/2023 Would You Say That, In General, Your Health Is Very Good Information not available 11/16/2023 How Often Does Anyone, Including Family, Physically Hurt You? Never Information not available 11/16/2023 How Often Does Anyone, Including Family, Insult Or Talk Down To You? Sometimes Information no t available 11/16/2023 How Often Does Anyone, Including Family, Threaten You With Harm? Never Information not available 11/16/2023 How Often Does Anyone, Including Family, Scream Or Curse At You? Sometimes Information not available 11/16/2023 Within The Past 12 Months, You Worried That Your Food Would Run Out Before You Got Money To Buy More. Never True Information n ot available 11/16/2023 Within The Past 12 Months, The Food You Bought Just Didn't Last And You Didn't Have Money To Get More. Never True Information n ot available 11/16/2023 How Hard Is It For You To Pay For The Very Basics Like Food, Housing, Medical Care, And Heating? Would You Say It Is: Not Hard At All Information not available 11/16/2023 In The Past 12 Months, Has Lack Of Reliable Transportation Kept You From Medical Appointments, Meetings, Work Or From Getting Things Needed For Daily Living? No Information not available 11/16/2023 What Is Your Housing Situation Today? I Have Housing. Information not available 11/16/2023 How Often In The Past Year Have You Used Marijuana (including Smoking, Vaping, Dabbing, Or Edibles)? Never Information not available 11/16/2023 How Often In The Past Year Have You Used Prescription Medications That Were Not Prescribed To You? Never Information n ot available 11/16/2023 How Often In The Past Year Have You Taken Your Own Prescription Medication More Than The Way It Was Prescribed Or For Different Reasons Than Its Intended Purpose? Never Information no t available 11/16/2023 How Often In The Past Year Have You Used Other Drugs (for Example, Heroin, Cocaine, Meth, Salvia, Inhalants)? Never Information not available 11/16/2023 Have You Ever Used IV Drugs? No Information not available 11/16/2023 Date Of Most Recent SBINS 11/16/2023 Information not available 11/16/2023 What Was The Date Of Your Most Recent Tobacco Screening? 11/22/2023 [email or web address] Information not available 11/22/2023 What Is Your Current Pack Years? 20-29packyear s Information not available 05/11/2023 At What Age Did You Start Smoking Tobacco? 14 Information not available 05/11/2023 How Much Tobacco Do You Smoke? No Information not available 05/11/2023 Has Tobacco Cessation Counseling Been Provided? Yes [email or web address] Information not available 05/18/2023 On What Date Was Tobacco Cessation Counseling Provided? 11/22/2023 [email or web address] Information not available 11/22/2023 How Many Years Have You Smoked Tobacco? 25 Information not available 05/11/2023 Do You Or Have You Ever Used Any Other Forms Of Tobacco Or Nicotine? No Information not available 04/13/2023 Sex: Female Functional Status None recorded. Mental Status None recorded. Family History Relationship Description Onset Age of this Age Resolved Age Notes LastModified by Organization Details LastModified Time Father Family history of Hypercholest erolemia Not available 2022 03:52:38 Father Family history of Hypertension Not available 01/2023 03:52:38 Father Family history of stroke Not available 2022 03:52:39 Father No family history of respiratory disease Not available 2022 03:52:40 Unspecified Relation Family history of cancer of colon Relati ve: 'Aunt' ; Not available 02/25/2023 03:52:39 Unspecified Relation Family history of cancer of colon 6 of MGM's siblin gs affect ed Not available 02/25/2023 03:52:39 Mother Family history of malignant neoplasm of lung Not available 2022 03:52:40 Mother Family history of hyperthyroid ism Not available 2022 03:52:40 Sister Family history of diabetes mellitus type 1 DM1 Not available 2022 03:52:41 Notes:*Problem: Mother: Dece ased at 69y/o - Pulmonary embolus s/p hip fracture Father: at 80y/o - Kidney failure, TIAs/CVA Sisters x 2 - Colonic polyps and lazy colon x 1, Breast CA x 1 DAUGHTER x 1 - L&W without ongoing medical issues SON x 1 - L&W without ongoing medical issues Medical History No medical history recorded. Gynecological HistoryNo gynecological history recorded. Obstetrics History GPAL:G 0 P 0 0 0 0 Immunizations Vaccine Type Date Status Provider Name and Address Organization Details Recorded Time Td (adult), 2 Lf tetanus toxoid, preservative free, adsorbed 11/30/2021 completed Not Available [facility], [facility] 02/25/2023 05:15:02 Tdap 05/31/2011 completed Not Available [facility], [facility] 05:15:03 zoster live 10/09/2014 completed Not Available [facility], [facility] 02/25/2023 05:15:03 Influenza, split virus, trivalent, preservative 01/21/2016 completed Not Available [facility] 02/25/2023 05:15:03 Influenza, split virus, trivalent, preservative 01/29/2015 completed Not Available [facility] 02/25/2023 05:15:03 Influenza, split virus, quadrivalent, PF 01/28/2020 completed Not Available [facility] 02/25/2023 05:15:03 Influenza, split virus, quadrivalent, preservative 02/01/2017 completed Not Available [facility] 02/25/2023 05:15:03 Influenza, split virus, quadrivalent, preservative 02/06/2018 completed Not Available [facility] 02/25/2023 05:15:03 zoster recombinant 12/07/2017 completed Not Available [facility] 02/25/2023 05:15:03 zoster recombinant 02/20/2018 completed Not Available [facility] 02/25/2023 05:15:03 Influenza, high-dose, quadrivalent, PF 01/21/2021 completed Not Available [facility] 02/25/2023 05:15:04 Influenza, high-dose, quadrivalent, PF 02/01/2022 completed Not Available [facility] 02/25/2023 05:15:04 COVID-19, mRNA, LNP-S, PF, 100 mcg/0.5mL dose or 50 mcg/0.25mL dose 06/23/2020 completed Not Available [facility] 02/25/2023 05:15:04 COVID-19, mRNA, LNP-S, PF, 100 mcg/0.5mL dose or 50 mcg/0.25mL dose 07/21/2020 completed Not Available [facility] 02/25/2023 05:15:04 COVID-19, mRNA, LNP-S, PF, 100 mcg/0.5mL dose or 50 mcg/0.25mL dose 11/04/2021 completed Not Available [facility] 02/25/2023 05:15:04 SARS-COV-2 (COVID-19) vaccine, UNSPECIFIED 02/21/2021 completed Not Available [facility] 02/25/2023 05:15:04 Pneumococcal conjugate PCV20, polysaccharide [id number] conjugate, adjuvant, PF 02/01/2022 completed Not Available [facility] 02/25/2023 05:15:04 COVID-19, mRNA, LNP-S, bivalent, PF, 30 mcg/0.3 mL dose 03/15/2022 completed Not Available [facility] 02/26/20 05:15:04 pneumococcal polysaccharide PPV23 10/09/2014 completed Not Available [facility] 2022 05:15:04 pneumococcal polysaccharide PPV23 01/28/2020 completed Not Available [facility] 2022 05:15:05 COVID-19, mRNA, LNP-S, PF, 50 mcg/0.5 mL 01/24/2023 completed Alanis Allred RN null, [facility] 04/14/2023 14:17:51 Respiratory syncytial virus (RSV) vaccine, unspecified 01/12/2023 completed Alanis Allred RN null, [facility] 04/14/2023 14:18:16 Past Encounters Encounter ID Performer Location Encounter Start Date Encounter Closed Date Diagnosis/Indication Diagnosis SNOMED-CT Code Diagnosis ICD10 Code [id number] CHELITA WEAVER PA-C [address] [place] [address] 04/13/2023 17:02:09 04/13/2023 18:27:31 Essential hypertension 35222984 I10 Pain in ri ght hip joint 2166092573 89882 M25.348 [id number] ALBA SEBASTIANHien [address] [address] 05/11/2023 15:40:26 05/11/2023 16:39:40 Essential hypertension 90507909 I10 Localized eruption of skin 932711192 R21 [id number] CHELITA WEAVER PA-C [address] [place] [address] 05/18/2023 16:32:27 05/18/2023 18:16:27 Cellulitis 217185141 L03.90 Essential hypertension 16631046 I10 [id number] MEAGAN RUBIO PA-C [address] [address] 06/07/2023 14:47:31 06/07/2023 16:09:41 Essential hypertension 30247930 I10 [id number] ALBA [address] [address] 07/12/2023 13:50:31 08/05/2023 10:05:38 Essential hypertension 66520194 I10 Hyperlipidemia 14943058 E78.5 Major depr ession, single episode 95735421 F32.9 [id number] MEAGAN RUBIO PA-C [address] [address] 09/26/2023 14:48:41 09/26/2023 16:16:11 Pain in right foot 9086288916 98102 M79.671 Hyperlipidemia 97312197 E78.5 Major depr ession, single episode 53396538 F32.9 [id number] CHELITA WEAVER PA-C [address] [place] [address] 10/28/2023 09:39:01 10/28/2023 11:12:22 COVID-19 034933027 U07.1 [id number] MEAGAN RUBIO PA-C [address] [address] 11/16/2023 16:45:35 11/22/2023 21:38:46 Adult health examination 280281602 Z00.00 Screening mammography 24 021367 Z12.31 Hyperlipidemia 04117874 E78.5 Major depr ession, single episode 73499095 F32.9 Essential hypertension 52840852 I10 R00.2 Chronic rhinitis 7455943 6 J31.0 [id number] DINORA WHITE [address] [place] [address] 11/22/2023 11:20:30 11/22/2023 14:23:01 Diarrhea 17986680 R19.7 Nausea 117039752 R11.0 [id number] MEAGAN RUBIO PA-C [address] [address] 11/30/2023 17:29:59 11/30/2023 17:56:19 Gastroenteritis 84639966 K52.9 [id number] Jennifer Amanda [address] [address] 01/04/2024 15:26:58 01/04/2024 16:17:22 Gastroenteritis 90644594 K52.9 Hyperlipidemia 00962380 E78.5 Essential hypertension 30736908 I10 R00.2 Hyperglycemia 85558717 R 73.9 Major depr ession, single episode 07845782 F32.9 Health Concerns Section Related Observation LastModified by Organization Detai ls LastModified Time None Recorded Concern Status LastModified by Organization Details LastModified Time None Recorded Advance Directives Directive None Recorded Payers Encounter Date Sequence Insurance Name Policy Number Policy Lerma Covered Member ID Lerma Member ID Guarantor Name 10/28/2023 1 [facility] (MEDICARE REPLACEMENT HMO) [id number] Chery Prescott [id number] Chery Prescott 11/16/2023 1 [facility] (MEDICARE REPLACEMENT HMO) [id number] Chery Prescott [id number] Chery Prescott 11/22/2023 1 [facility] (MEDICARE REPLACEMENT HMO) [id number] Chery Prescott [id number] Chery Prescott 11/30/2023 1 [facility] (MEDICARE REPLACEMENT HMO) [id number] Chery Prescott [id number] Chery Prescott Notes Date Note Type Note Provider Name and Address Organization Details Recorded Time 10/28/2023 text/html HPI Notes: Rich garcia is a 68-year-old female who presents with ill symptoms that began Tuesday with sore throat which has since resolved and then developed of cough and bodyaches. Cough has been dry, nonproductive without chest pain, shortness of breath or wheeze. She has had occasional coughing fits more notably at night. Not coughing to the point that she is gagging. Has not had fevers. No nausea or vomiting. Has had some slight diarrhea. Has a decreased appetite but drinking fluids adequately. She did have COVID 2 years ago which felt like seasonal allergies. She had pneumonia on 2-3 times always managed on an outpatient basis has never had to go to the ER. She does not have asthma. She was a smoker but quit when she was 39. [address], [place], [address], [facility]. 10/28/2023 11:27:01 11/16/2023 text/html HPI Notes: Medic are Annual Wellness Visit Reported by patient. Diet and Nutrition: follows recommended diet Fracture Risk: no history of fractures; no recent explained fracture; no sudden unexplained fractures; no previous musculoskeletal injuries Physical Activity: exercises on a regular basis; recent increase in physical activity; good physical condition Depression Risk: never feels sad, empty, or tearful; no loss of interest in activities; no significant changes in weight; no sleep disturbances or insomnia; no agitation; no loss of energy; no feelings of worthlessness or guilt; no thoughts of suicide; no history of mood disorders; history of depression Orientation: oriented to person, place, time Concentration and Memory: no decreased concentrating ability; no memory lapses or loss; does not forget words Speech/Motor difficulties: no speech difficulties; no difficulty expressing formulated concepts; no difficulty with fine manipulative tasks; no difficulty writing/copying; no slowed reaction time; does not knock things over when trying to pick them up Hearing: no loss of hearing Vision: no vision problems Activities of Daily Living: able to bathe with limited or no assistance; able to control urination and bowels; able to dress with limited or no assistance; able to feed self with limited or no assistance; able to get out of chair or bed with limited or no assistance; able to groom with limited or no assistance; able to toilet with limited or no assistance Instrumental Activities of Daily Living: able to do house work with limited or no assistance; able to grocery shop with limited or no assistance; able to manage medications with limited or no assistance; able to manage money with limited or no assistance; able to prepare meals with limited or no assistance; able to use the phone with limited or no assistance; able to manage transportation with limited or no assistance Falls Risk Assessment: no frequent falls while walking; no fall in the past year; no fall since last visit; no dizziness/vertigo Home Safety: no unsafe steven hazards; no unsafe stairs; no unsafe gas appliances; working smoke/CO detectors; wears protective head gear for biking/high velocity; use of seatbelts; no high risk sexual behavior; no vision or hearing loss while driving; no firearms; has hand bars in the bathroom/shower; good lighting in the home Notes: Treated for COVID-19 infection 10/28/23 via [facility]. Sxs now fully resolved 68y/o female presenting for annual Medicare Wellness exam. MEAGAN RUBIO PA-C [address], [place], [address], [facility]. 11/16/2023 17:58:50 11/22/2023 text/html HPI Notes: Patie nt with onset of symptoms 1 week ago, with bloating, abdominal distension, and diarrhea stools (Mason type 5 to 7), several times per day. No noted blood to diarrhea. Did trial OTC Pepto Bismol at onset with minimal improvement in symptoms. No known exposure to contaminated water, food, or household contacts with similar symptoms. On city water at home, with no recent boil water notice for her home supply. At recent trip to her [place] prior to symptoms starting, only drank bottled water, did use the local water to bathe and brush her teeth only. Has had no fevers, body aches, sweats/chills. No recent antibiotic use. Started using OTC Immodium 4 days ago, last dose yesterday AM. Since using, has noted decrease in diarrhea stool frequency. This AM, did have an abnormal bowel movement, looser than normal, but diarrhea is not as severe since taking Immodium. Began noting nausea in the last 2 days after eating, or triggered with thinking about food. No active vomiting episodes, but reports significantly decreased appetite, resulting in leaving work early due to feeling poorly. She reports history of colonoscopy with polyps (q3-5 year frequency). No known history of diverticulosis or diverticulitis. She reports both corn and lactose sensitivity, and has cut out gluten since onset of these recent symptoms in the event of any other food sensitivity. DINORA WHITE, LACQUER [employer]ATER [address], [place], [address], [facility]. 11/22/2023 14:57:22 11/30/2023 text/html HPI Notes: 68y/o female, with known corn and lactose sensitivity, presenting for f/u [facility] visit. Patient sought evaluation via [facility] 11/22/23 with c/o GI disturbance x 1 week. Following evaluation to include laboratory testing (CBC, CMP, celiac panel) and stool CX (c. diff, CX, O&P), she was RXd ZOFRAN PRN and encouraged to use OTC PEPTO vs IMMODIUM PRN for symptomatic relief. On presentation today, patient reports starting to feel a bit better. 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 Denies lightheadedness or syncope. Able to eat a bit more regularly over last few days. Some persistent lower abdominal/pelvic cramping after eating. Bowels OK, however. No residual N/V. Denies fever. Inquires about possibility for sxs reflective of sequela of recent COVID-19 infection (+ through [facility] 10/28/23) [address], [place], [address], [facility]. 11/30/2023 18:30:44 OBGyn Episode No OBEpisode recorded.
--- OUTSIDE RECORDS SUMMARY | 2024-01-04 19:06 | XMS_ITS | Encounter Summary ---
Author Organization [facility] Address [address] [place] [address] Care Team Providers Care Salon Supervisor Name Role Phone Unavailable Primary Care Provider Unavailabl e Encounter Details Date Type Department Care Team (Late st Contact Info) Description 06/15/2010 Results Only [facility] Laboratory Services - [facility] [address], [place] [address] Tj Schumacher MD [address] [place] [address] Social History Tobacco Use Types [...] LUIS, REJI J ? Accession #: ? [id number] ? : ? 1955 (Age: 54) ??F [...] adenoma ? Gross Description: ? Received in [employer] fixative labelled Reji Prescott and 1 ? sigmoid colon polyp is a 0.6 x 0.2 x 0.2 cm polypoid biopsy. ??The specimen is ?? submitted intact as (A). ? Received in [employer] fixative labelled Reji Prescott and 2 ??random ? rectal bx are two biopsies which vary in size from 0.2 x 0.2 x 0.2 cm up to 0.4 x 0.3 x 0.2 cm. ??The specimens are submitted intact as (B). ??(ALLYSSA Wolf/kate ? End of Report ? [facility] 06/15/2010 06/16/2010 8:3 2 EST Tj Schumacher MD PATHOLOGY ORDERABLES [facility] [address] [place] [address] documented in this encounter Visit Diagnoses Not on filedocumented in this encounter
--- OUTSIDE RECORDS SUMMARY | 2024-01-04 19:06 | XMS_ITS | Encounter Summary ---
Author Organization [facility] Address [address] [place] [address] Care Team Providers Care Linoleum Installer Name Role Phone Unavailable Primary Care Provider Unavailabl e Encounter Details Date Type Department Care Team (Late st Contact Info) Description 02/28/2008 Before PRISM Converted Visit (Maple) [facility] Adult Primary Care - [address] [id number] Katerina Braga, PROFESSOR OF EXERCISE SCIENCE [address] [place] [phone] Social History Tobacco Use Types Packs/Day Years [...] EST 03/13/2008 8:54 EST Katerina P Arsen PROFESSOR OF EXERCISE SCIENCE MICROBIOLOGY - GENER AL ORDERABLES [facility] [address] [place] [address] * CYTOPATHOLOGY (02/28/2008 0:00 EST) Pathology Report: CYTOPATHOLOGY REPORT ? Reports generated via electronic interface contain original data; ? however they are lacking the format of the original report. ? Caution should be taken when reading/interpreti ng unformatted reports. ? Name: ? REJI SMITH ? Accession #: ? [id number] ? : ? 1955 (Age: 52) ??F ?Collect Date: ? 02/28/2008 ? Location: ? [facility] ? Receive Date: ? 02/29/2008 ? Provider: ?KATERINA ARSEN [employer] ? Copy to: ? Specimen/Source: ?Pap Test, Endocervix, ThinPrep Imaging System with ? manual evaluation ? 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 Previous Gynecologic Pathology: ? Carcinoma: Vulvar [...] OTONIEL ARGUELLO 02/28/2008 02/29/2008 Katerina P Arsen PROFESSOR OF EXERCISE SCIENCE PATHOLOGY ORDERABLES Performing Organization Address City/State/[facility] Co de Phone Number [facility] [address] [place] [address] documented in this encounter Visit Diagnoses Not on filedocumented in this encounter
--- OUTSIDE RECORDS SUMMARY | 2024-01-04 19:06 | XMS_ITS | Encounter Summary ---
Author Organization [facility] Address [address] [place] [address] Care Team Providers Care School Treasurer Name Role Phone Unknown, Provider Primary Care Provider [phone] Meagan Christine PA-C Primary Care Provider + Encounter Details Date Type Department Care Team (Late st Contact Info) Description 11/03/2020 Lab Requisition [facility] Pathology & Laboratory Medicine - [facility] [address] [place] [address] Meagan Christine PA-C [address] [place] [address] Encounter for other general examination Social History [...] PCR Positive( A) Negative 11/13/2020 14:45 EDT [facility] Comment:E6 OR E7 mRNA from o ne or more types of HPV types 16,18,31,33,35,39,45,51,52,56,58,59,66, and 68 is detected by rn plasma center mediated amplification. High and intermediate risk HPV types are associated with most squamous intraepithelial lesions and cervical cancers. Papanicolaou smear specimen (specimen) CERVIX UTERI STRUCTURE / Unknown 10/29/2020 17:45 EDT 11/12/2020 11:18 EDT Meagan Christine PA-C MICROBIOLOGY - G ENERAL ORDERABLES [facility] [address] [place] [address] * PAP TEST (10/29/2020 17:45 EDT) Specimens A. Cervix and/or Endocervix , ThinPrep Imaging System with Manual Evaluation 11/13/2020 14:45 EDT [facility] Specimen Adequacy Satisfactory for Evaluation - transformation zone component present 11/13/2020 14:45 EDT [facility] General Categorization Negative for intraepithelial lesion or malignancy 11/13/2020 14:45 T [facility] Attestation . 11/13/2020 14:45 [facility] at 1444 Clinical History See below 11/14/19 14:45 T [facility] HPV The result for the Human Papillomavirus (HPV) Detection-High Risk Types is Positive . E6 OR E7 mRNA from one or more types of HPV types 16,18,31,33,35,39 ,45,51,52,56,58,5 9,66, and 68 is detected by rn plasma center mediated amplification. High and intermediate risk HPV types are associated with most squamous intraepithelial lesions and cervical cancers. Testing was performed on specimen [id number] and was resulted on 11/13/2020 1345 EDT by CHELY, LAB INSTRUMENT RESULTS IN 11/13/2020 14:45 EDT [facility] Performing Lab [facility] 11/13/2020 14:45 EDT [facility] Scanned Images 11/13/2020 14:45 EDT [facility] Papanicolaou smear specimen (specimen) CERVIX UTERI STRUCTURE / Unknown 10/29/2020 17:45 EDT 11/03/2020 8:30 EDT Meagan Christine PA-C PATHOLOGY ORDERA JEREMIAH [facility] [address] [place] [address] documented in this encounter Visit Diagnoses Diagnosis Encounter for other general examination documented in this encounter Care Teams School Treasurer Relationship Specialty Start Date End Date Unknown, Provider, PCP - General 06/17/10 04/17/22 Meagan Christine PA-C [address] [place] [phone] PCP - General 04/18/22 documented as of this encounter
--- OUTSIDE RECORDS SUMMARY | 2024-01-04 19:06 | XMS_ITS | Clinical Summary ---
Author Organization [facility] [place] [address] Care Team Providers Care Laundry Machine Operator Name Role Phone Unknown Primary Care Provider Unavailabl e Allergies Active Allergy Reactions Criticality Noted Date Comments Codeine Phosphate CIS - Vomiting, pruritis Medications Medication Sig Dispensed Refills Start Date End Date Status CALCIUM ORAL 05/11/2006 Active ibuprofen (ADVIL;MOTRIN) 200 mg tablet 05/11/2006 Active aspirin (BABY ASPIRIN) 81 mg chewable tablet 05/11/2006 Active [place]-3 Fatty Acids-Vitamin E (OMEGA-3 FISH OIL) 1,000-5 [...] Documents on File Type Date Recorded 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
--- OUTSIDE RECORDS SUMMARY | 2024-01-04 19:06 | XMS_ITS | Continuity of Care Document ---
Author Organization [place] - [facility], [facility] Address [address] [place] [address] Care Team Providers Care Management Internship Name Role Phone MEAGAN RUBIO Primary Care Provider Assessment Encounter Date Assessment [...] Not available Not available Not available Lab None recorded. Referral None recorded. Procedures None recorded. Surgeries None recorded. Imaging MAMMO, screening , digital, bilateral - LAST 12/21/222023 024 [email or web address] [facility], [address], [place], [address], 12/29/2023 14:08:22 Medication Orders lisinopri l 20 mg tablet 2023 024 hanny [facility], [address] [place] [address], [address], 01/04/2024 16:14:25 nifedipin e ER 30 mg tablet,ex tended release 2023 024 brigitte [facility], [address] [place] [address], [address], 11/16/2023 17:53:44 fluoxetin e 20 mg capsule 2023 024 [place] [address] [facility], [address] [place] [address], [address], 11/16/2023 17:58:55 rosuvasta tin 10 mg tablet 2023 024 [place] [address] [facility], [address] [place] [address], [address], 11/16/2023 17:58:55 loratadin e 10 mg tablet 2023 024 CARRIE [facility], [address] [place] [address], [address], 11/16/2023 17:52:56 Patient TargetsNo targets recorded. Patient Instructions Encounter Date Encounter Id Patient Instructions Last Modified By Organization Details Last Modified Time 11/16/2023 [id number] Discussed and explained advance directives such as standard forms to the {{patient caregiv er patient and caregiver}}. Face to face discussion lasted for a duration of ___ minutes. Not available 11/16/2023 10:32:06 Reason for Referral Physical Therapist Referral for Pain in right hip joint Referring Physician: Chelita Weaver, Family Medicine, Encounter Date: 04/13/2023 Results Created Date Observation Date Name Description Value Unit Range Abnormal Flag Note LastModifiedBy Organization Detail LastModifiedTime 12/29/19 24 12/29/2023 mammo graph y imagi ng repor t Soco farrell Name: Jasmine Melchor Unit #: [id number] Loc: DI Orderi ng Provid er: Deidra mullen,Nila WILLIS Accoun t #: [id number] Status : REG CLI Primar y [...] signif icant change from prior exams. IMPRES KELLY: BI-RAD S Catego ry 1, Negati ve mammog agustina. Yearly screen ing mammog syl is recomm ended. Breast Densit y Catego ry C, hetero geneou sly Dense. The mammog agustina demons trates the soco t's breast tissue is dense. Dense breast [...] this report when you speak with the patijayy t about their risks for breast cancer [...] report may reinfo rce clinic al impres kelly. Adenos is and dense breast s may obscur e an underl emanuel neopla sm. False positi ve report s averag e 6 to 10%. Ordere d By: Deidra mullen,Nila WILLIS CC: ------ ------ ------ ------ ------ ------ ------ ------ ------ ------ ------ ------ - Dictat ed By: Miguel Ángel Tenorio 113 113 Transc ribed By: Gopal Sullivan 1134 This is privil eged, confid ential inform ation intend ed only for the provid er named. Any use or distri bution by any person other than this provid er is strict ly prohib ited. If you receiv e this report in error, please notify us immedi abrahan at and return the origin al report to us at the addres s above. Thank- you. [email or web address] [facility] [address], [place], [address] 12/29/2023 14:08:06 01/01/20 24 10/17/2019 DEXA No observ ation record ed. Not Available 12/31 21:35:54 01/01/20 24 11/29/2019 bone densi ty No observ ation record ed. Not Available 12/31 21:37:17 01/01/20 24 01/28/2021 MRI, neck No observ ation record ed. Not Available 12/31 21:37:20 01/01/20 24 10/03/2018 MAMMO , scree catie No observ ation record ed. Not Available 12/31 21:37:21 01/01/20 24 11/23/2019 MAMMO charlie No observ ation record ed. Not Available 12/31 21:37:21 01/01/20 24 11/19/2020 MAMMO charlie No observ ation record ed. Not Available 12/31 21:37:22 01/01/20 24 12/09/2021 MAMMO charlie No observ ation record ed. Not Available 12/31 21:37:23 01/01/2012/21/2022 MAMMO charlie No observ ation record ed. Not Available 12/31 21:37:24 01/01/20 24 08/06/2021 imagi ng/di agnos tic resul t No observ ation record ed. Not Available 12/31 21:37:30 Result Notes None recorded. Problems Name Problem SNOMED Code Status Onset Date Resolution Date Notes Provider Name and Address Organization Details Recorded Time Nicotine dependen ce 46492862 Active 2009 Problem Code: Z87.891; Problem Code Type: ICD-10; Not Available [facility] 3 04:53:37 Major depressi on, single episode 58357764 Active 200911/11/19 23 - Comments only - Meagan Rubio PA-C - - DEPRESSI ON Well maintain ed on PROZAC 20mg QD Problem Code: F32.9; Problem Code Type: ICD-10; Not Available [facility] 3 04:53:37 Primary malignan t neoplasm of vulva 19041219 Completed 200902/08/2010 Problem Code: 184.4; Problem Code Type: ICD-9; Not Available [facility] 3 04:53:37 Carpal tunnel syndrome 48763792 Completed 200902/08/2010 Not Available [facility] 3 04:53:37 Hyperlip idemia 67122814 Active 200911/11/19 23 - Comments only - Meagan Rubio PA-C - - HYPERLIP IDEMIA To continue on CRESTOR 10mg QD unless change is indicate d by results of today's laborato ry testing Problem Code: E78.5; Problem Code Type: ICD-10; Not Available [facility] 3 04:53:37 Dizzines s 475508257 Completed 200902/08/2010 Not Available [facility] 3 04:53:37 [facility] hyperten kelly 36828513 Active 201111/11/19 23 - Comments only - Meagan Rubio PA-C - - HTN Stable on PROPRANO LOL 10mg BID Problem Code: I10; Problem Code Type: ICD-10; Not Available [facility] 3 04:53:38 Cervical spondylo sis without myelopat hy 636758001 Active 195911/06/19 22 - Comments only - Meagan Rubio PA-C - Patient agrees to reach out to [facility] when she feels in a position to move forward with neurosur gical consult, as suggeste d by [facility] as next step in manageme nt. Problem Code: M47.812; Problem Code Type: ICD-10; Not Available [facility] 3 04:53:38 Dysuria 71231020 Completed 201412/04/2014 Problem Code: R30.0; Problem Code Type: ICD-10; Not Available [facility] 3 04:53:38 Adult health examinat ion Active 201411/11/19 23 - Comments only - Meagan Rubio PA-C - Will arrange for mammogra m @ [facility] when due in late November. Problem Code: Z00.00; Problem Code Type: ICD-10; Not Available [facility] 3 04:53:38 Pain in right hip joint 74365229847 9102 Completed 201508/09/2015 07/09/19 16 - Comments only - Meagan Rubio PA-C - Given high insuranc e deductab le, patient hesitant to accept refer to allow to return to PT. Instead, as first line, patient intends to contact PT provider for copy of at-home exercise sheet used in managmen t [facility]. Otherwis e to continue with OTC NSAIDs, topical analgesi cs, ice, etc. Problem Code: M25.551; Problem Code Type: ICD-10; CHELITA WEAVER PA-C [address], [place], [address] , [facility]. 3 18:22:45 Palpitat ions 72420639 Active 201511/06/19 22 - Comments only - Meagan Rubio PA-C - Stable on PROPRANO LOL 10mg BID Problem Code: R00.2; Problem Code Type: ICD-10; Not Available [facility] 3 04:53:38 Hearing loss 94706195 Active 2016 Problem Code: H91.90; Problem Code Type: ICD-10; Not Available [facility] 3 04:53:38 Glaucoma 82239486 Active 2017 Problem Code: H40.9; Problem Code Type: ICD-10; Not Available [facility] 3 04:53:38 Disorder of skin and/or subcutan eous tissue 89627349 Completed 201712/21/2017 12/08/19 18 - Comments only - Meagan Rubio PA-C - Will refer patient to dermatol mohinder for consider ation towards excision al biopsies Problem Code: L98.9; Problem Code Type: ICD-10; Not Available [facility] 3 04:53:39 Rosacea 360071986 Completed 201712/21/2017 12/08/19 18 - Comments only - Meagan Rubio PA-C - Will trial to treat with RXd METROGEL BID Problem Code: L71.9; Problem Code Type: ICD-10; Not Available [facility] 3 04:53:39 Acquired right hallux valgus 56490852545 4106 Completed 201702/20/2018 02/07/20 18 - Comments only Dustin Rubio PA-C - As per patient request, will refer to podiatry for treatmen t Problem Code: M20.11; Problem Code Type: ICD-10; Not Available [facility] 3 04:53:39 Allergic rhinitis 13516591 Active 2018 Problem Code: J30.9; Problem Code Type: ICD-10; Not Available [facility] 3 04:53:39 Acute sinusiti s 99983614 Completed 201810/02/2018 09/19/19 19 - Comments only - Meagan Rubio PA-C - Given persiste nt nature of patient' s sxs, will cover with ZITHROMA X as ZPAK Problem Code: J01.90; Problem Code Type: ICD-10; Not Available [facility] 3 04:53:39 Anxiety disorder 689452810 Active 201910/31/19 21 - Comments only - Meagan Rubio PA-C - Mood stable on PROZAC 20mg QD Problem Code: F41.9; Problem Code Type: ICD-10; Not Available [facility] 3 04:53:39 Sleep rest pattern finding 375123695 Active 2019 Not Available [facility] 3 04:53:39 Cellulit is of finger 08760995 Completed 202010/07/2020 10/07/19 21 - Comments only [...] L03.019; Problem Code Type: ICD-10; Not Available [facility] 3 04:53:40 Dizzines s and giddines s 646581914 Completed 202002/04/2021 02/03/20 21 - Comments only - Meagan Rubio PA-C - No improvem ent on ANTIVERT . Patient provided with educatio nal handouts to instruct on self adminste mayra dongveu rs. If sxs fail to improve with same, however, will maintain low index for ENT refer. Problem Code: R42; Problem Code Type: ICD-10; Not Available [facility] 3 04:53:40 Nerve root disorder 68479698 Active 2020 Problem Code: M54.10; Problem Code Type: ICD-10; Not Available [facility] 3 04:53:40 Screenin g mammogra phy Active 2021 Problem Code: Z12.31; Problem Code Type: ICD-10; Not Available [facility] 3 04:53:40 Disorder of skin and/or subcutan eous tissue 95946419 Completed 202111/18/2021 11/06/19 22 - Comments only - Meagan Rubio PA-C - After cleansin g the area with alcohol wipe, lesion was treated with multiple rounds of cryother apy using liquid nitrogen , followin g which bandage dressing was applied. 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 a Completed 201301/12/2023 Not Available [facility] 3 04:53:41 Cervical spondylo sis 219328555 Completed Not Available [facility] 3 04:53:41 Cellulit is of leg, excludin g foot 158614951 Completed 200901/12/2023 Not Available [facility] 3 04:53:41 Partner relation ship problem 73908868392 00 Completed 201509/02/2017 Problem Code: Z63.0; Problem Code Type: ICD-10; Not Available [facility] 3 04:53:41 Acute vaginiti s 30385218 Completed 201409/02/2017 Problem Code: N76.0; Problem Code Type: ICD-10; Not Available [facility] 3 04:53:41 Hyperten sive disorder 41310979 Completed 201101/12/2023 Not Available [facility] 3 04:53:42 Cellulit is 829857016 Completed 200909/02/2017 Problem Code: L03.119; Problem Code Type: ICD-10; [address], [place], [address] [facility] 4 18:06:37 Human papillom a virus screenin g Completed 201309/02/2017 Problem Code: Z11.51; Problem Code Type: ICD-10; Not Available [facility] 3 04:53:42 Family history of malignan t neoplasm of digestiv e organ 438233183 Completed 200909/02/2017 Problem Code: Z80.0; Problem Code Type: ICD-10; Not Available [facility] 3 04:53:42 Cellulit is of finger 01828854 Completed 201409/02/2017 Problem Code: L03.019; Problem Code Type: ICD-10; Not Available [facility] 3 04:53:42 History of clinical finding in subject 758493420 Completed 200901/12/2023 Not Available [facility] 3 04:53:43 Adjustme nt disorder with mixed emotiona l features 54845218 Completed 200901/12/2023 Problem Code: 309.28; Problem Code Type: ICD-9; Not Available [facility] 3 04:53:43 Acute conjunct ivitis 95725525 Completed 201810/29/2020 Problem Code: H10.30; Problem Code Type: ICD-10; Not Available [facility] 3 04:53:43 Senile hyperker atosis 190234960 Completed 201609/02/2017 Problem Code: L82.1; Problem Code Type: ICD-10; Not Available [facility] 3 04:53:43 Pain in right hip joint 54112229948 9102 Active 202207/09/19 16 - Comments only - Meagan Rubio PA-C - Given high insuranc e deductab le, patient hesitant to accept refer to allow to return to PT. Instead, as first line, patient intends to contact PT provider for copy of at-home exercise sheet used in [facility]. Otherwis e to continue with OTC NSAIDs, topical analgesi cs, ice, etc. Problem Code: M25.551; Problem Code Type: ICD-10; [address], [facility] [address] , [facility] 3 18:22:45 Cellulit is 216141284 Active 2023 Problem Code: L03.119; Problem Code Type: ICD-10; [address], [facility] [address] , [facility] 4 18:06:37 COVID-19 886536125 Active [address], [facility] [address] , [facility] 4 10:50:24 Problem Notes None recorded. Medical Equipment None Reported. Allergies Allergen ID Allergen Name Allergen Category Reaction Reaction Severity Criticality Documentation Date Start Date Code Code System Note Provider Name and Address Organization Details Recorded Time 80052 Product containin g 3-hydroxy -3-methyl glutaryl- coenzyme A reductase inhibitor (product) medicatio n myalgias (muscle pain) mild Not available 02/25/20232011 47468 009 SNOMED myalg ias Not Available [facility] 3 16:06:50 82414 Bactrim medicatio n rash mild Not available 02/25/20232009 82342 9 RxNorm Skin Rash Aller gyRea ction : 'Skin Rash' ; Not Available [facility] 3 16:06:50 05569 Augmentin medicatio n diarrhea mild Not available 02/25/20232011 33741 2 RxNorm diarr hea Not Available [facility] 3 16:06:50 55652 codeine medicatio n nausea mild Not available 02/25/20232009 2670 RxNorm Nause a/Vom iting /Diar oleg Aller gyRea ction : 'Naus ea/Vo mitin g/Eugenia rrhea '; Aller gyCod e: '0040 07609 32'; Aller gyNam e: 'CODE INE'; Aller gyCon ceptT ype: 'NDC' ; Not Available [facility] 3 16:06:51 21919 corn extract food,medi cation nausea Not available Not available 04/13/2023 28427 08 RxNorm KARELY askew [facility] 3 17:32:05 Medications Name Sig Start [...] Shingrix (PF) 50 mcg/0.5 mL intramusc ular heraclio n, kit Administ er 10/29 completed Not Available Not Available Not Available Vitals Date Recorded Body height Body mass index (BMI) Body weight Oxygen saturation Oxygen saturation in Arterial blood by Pulse oximetry Heart rate Body temperature Systolic blood pressure Diastolic blood pressure Provider Name and Address Organization Details Last Updated DateTime 4 168.91 cm 22 kg/m2 10227.1 5 g 98 % 98 % 62 /min 98.8 [degF] 136 mm[Hg] 60 mm[Hg] TRI CHANCE LPN [facility] 17:11:23 Social History Question Answer Notes LastModified by Organizat ion Details LastModified Time Tobacco Smoking Status Former Smoker KARELY askew [facility] 04/13/2023 17:32:56 When Did You Quit Smoking? 16+yearssince [email or web address] Information not available 04/13/2023 Would You Say [...] Of Your Most Recent Tobacco Screening? 11/22/2023 [email or web address] Information not available 11/22/2023 What Is Your Current Pack Years? 20-29packyear s Information not available 05/11/2023 At What Age Did You Start Smoking Tobacco? 14 Information not available 05/11/2023 How Much Tobacco Do You Smoke? No Information not available 05/11/2023 Has Tobacco Cessation Counseling Been Provided? Yes [email or web address] Information not available 05/18/2023 On What Date Was Tobacco Cessation Counseling Provided? 11/22/2023 [email or web address] Information not available 11/22/2023 How Many Years [...] preservative free, adsorbed 11/30/2021 completed Not Available [facility] 02/25/2023 05:15:02 Tdap 05/31/2011 completed Not Available [facility] 05:15:03 zoster live 10/09/2014 completed Not Available [facility] 02/25/2023 05:15:03 Influenza, split virus, trivalent, preservative 01/21/2016 completed Not Available [facility] 02/25/2023 05:15:03 Influenza, split virus, trivalent, preservative 01/29/2015 completed Not Available [facility] 02/25/2023 05:15:03 Influenza, split virus, quadrivalent, PF 01/28/2020 completed Not Available [facility] 02/25/2023 05:15:03 Influenza, split virus, quadrivalent, preservative 02/01/2017 completed Not Available [facility] 02/25/2023 05:15:03 Influenza, split virus, quadrivalent, preservative 02/06/2018 completed Not Available [facility] 02/25/2023 05:15:03 zoster recombinant 12/07/[address] [facility] 02/25/2023 05:15:03 zoster recombinant 02/20/[address] [facility] 02/25/2023 05:15:03 Influenza, high-dose, quadrivalent, PF 01/21/2021 completed Not Available [facility] 02/25/2023 05:15:04 Influenza, high-dose, quadrivalent, PF 02/01/2022 completed Not Available [facility] 02/25/2023 05:15:04 COVID-19, mRNA, LNP-S, PF, 100 mcg/0.5mL dose or 50 mcg/0.25mL dose 06/23/2020 completed Not Available [facility] 02/25/2023 05:15:04 COVID-19, mRNA, LNP-S, PF, 100 mcg/0.5mL dose or 50 mcg/0.25mL dose 07/21/2020 completed Not Available [facility] 02/25/2023 05:15:04 COVID-19, mRNA, LNP-S, PF, 100 mcg/0.5mL dose or 50 mcg/0.25mL dose 11/04/2021 completed Not Available [facility] 02/25/2023 05:15:04 SARS-COV-2 (COVID-19) vaccine, UNSPECIFIED 02/21/2021 completed Not Available [facility] 02/25/2023 05:15:04 Pneumococcal conjugate PCV20, polysaccharide [id number] conjugate, adjuvant, PF 02/01/2022 completed Not Available [facility] 02/25/2023 05:15:04 COVID-19, mRNA, LNP-S, bivalent, PF, 30 mcg/0.3 mL dose 03/15/2022 completed Not Available [facility] 02/26/20 05:15:04 pneumococcal polysaccharide PPV23 10/09/2014 completed Not Available [facility] 2022 05:15:04 pneumococcal polysaccharide PPV23 01/28/2020 completed Not Available [facility] 2022 05:15:05 COVID-19, mRNA, LNP-S, PF, 50 mcg/0.5 mL 01/24/2023 completed CELSO Gracia, [facility] 04/14/2023 14:17:51 Respiratory syncytial virus (RSV) vaccine, unspecified 01/12/2023 completed CELSO Gracia, [facility] 04/14/2023 14:18:16 Past Encounters Encounter ID Performer Location Encounter Start Date Encounter Closed Date Diagnosis/Indication Diagnosis SNOMED-CT Code Diagnosis ICD10 Code [id number] CHELITA WEAVER PA-C [address] [place] [address] 10/28/2023 09:39:01 10/28/2023 11:12:22 COVID-19 251759546 U07.1 [id number] MEAGAN RUBIO PA-C [facility] [address] [place] [address] 11/16/2023 16:45:35 11/22/2023 21:38:46 Adult health examination 126772061 Z00.00 Screening mammography 24 232538 Z12.31 Hyperlipidemia 31161249 E78.5 Major depr ession, single episode 92380930 F32.9 Essential hypertension 19281365 I10 R00.2 Chronic rhinitis 5217255 6 J31.0 Health Concerns Section Related Observation LastModified by Organization Detai shelley LastModified Time None Recorded Concern Status LastModified by Organization Details LastModified Time None Recorded Payers Encounter Date Sequence Insurance Name Policy Number Policy Lerma Covered Member ID Lerma Member ID Guarantor Name 11/16/2023 1 [facility] (MEDICARE REPLACEMENT HMO) [id number] Chery Prescott [id number] Chery Prescott Notes Date Note Type Note Provider Name and Address Organization Details Recorded Time 11/16/2023 text/html HPI Notes: Medic are Annual [...] exam. MEAGAN RUBIO PA-C [address], [place], [address], [facility]. 11/16/2023 17:58:50 OBGyn Episode No OBEpisode recorded.
--- OUTSIDE RECORDS SUMMARY | 2024-01-04 19:06 | XMS_ITS | Continuity of Care Document ---
Author Organization [facility] Address [address] [place] [address] Care Team Providers Care 3D Technologist Name Role Phone MEAGAN RUBIO Primary Care Provider Assessment No assessment recorded. Plan of Treatment Reminders Order Date Submit Date Provider Last Modified By Organization Details Last Modified Time Details Appointments Follow Up 30 2023 03:30P M Not available Not available Not available Lab None recorded . Referral None recorded . Procedures None recorded . Surgeries None recorded . Imaging None recorded . Medication Orders None recorded . Patient TargetsNo targets recorded. Patient InstructionsNo instructions recorded. Reason for Referral Physical Therapist Referral for Pain in right hip joint Referring Physician: Chelita Weaver, Family Medicine, Encounter Date: 04/13/2023 Results Created Date Observation Date Name Description Value Unit Range Abnormal Flag Note LastModifiedBy Organization Detail LastModifiedTime 12/29/19 24 12/29/2023 mammo graph y imagi ng repor t Patien t Name: Jasmine Melchor Unit #: [id number] Loc: DI Orderi ng Provid er: Nila Gay rn Accoun t #: [id number] Status : REG CLI Primar y Care Provid er: Nila Gay rn Date of Exa m: Sex: F Admiss [...] Dense. The mammog agustina demons trates the patien t's breast tissue is dense. Dense breast tissue is very common and is not abnorm al but dense breast tissue can make it harder to find cancer on a mammog agustina. Also, dense breast tissue may increa se breast cancer risk. This inform ation about the result of the mammog agustina report was provid ed to the patien t to raise their awaren ess. Use [...] Dictat ed By: Miguel Ángel Tenorio [phone] Transc ribed By: Gopal Sullivan 1134 This is privil eged, confid ential inform ation intend ed only for the provid er named. Any use or distri bution by any person other than this provid er is strict ly prohib ited. If you receiv e this report in error, please notify us immedi abrahan at [phone] and return the origin al report to us at the addres s above. Thank- you. [email or web address] [facility] [address] [place], [address] 12/29/2023 14:08:06 01/01/20 24 10/17/2019 DEXA No [...] Available 12/31 21:37:21 01/01/20 24 11/23/2019 MAMMO , scree catie No observ ation record ed. Not Available 12/31 21:37:21 01/01/20 24 11/19/2020 MAMMO , scree catie No observ ation record ed. Not Available 12/31 21:37:22 01/01/20 24 12/09/2021 MAMMO , scree catie No observ ation record ed. Not Available 12/31 21:37:23 01/01/20 24 12/21/2022 MAMMO , scree catie No observ ation record ed. Not Available 12/31 21:37:24 01/01/20 24 08/06/2021 imagi ng/di agnos tic resul t No observ ation record ed. Not Available 12/31 21:37:30 Result Notes None recorded. Problems Name Problem SNOMED Code Status Onset Date Resolution Date Notes Provider Name and Address Organization Details Recorded Time Nicotine dependen ce 88157917 Active 2009 Problem Code: Z87.891; Problem Code Type: ICD-10; Not Available [facility] 3 04:53:37 Major depressi on, single episode 74584983 Active 200911/11/19 23 - Comments only - Meagan Rubio PA-C - - DEPRESSI ON Well maintain ed on PROZAC 20mg QD Problem Code: F32.9; Problem Code Type: ICD-10; Not Available [facility] 3 04:53:37 Primary malignan t neoplasm of vulva 46212071 Completed 200902/08/2010 Problem Code: 184.4; Problem Code Type: ICD-9; Not Available [facility] 3 04:53:37 Carpal tunnel syndrome 62608323 Completed 200902/08/2010 Not Available [facility] 3 04:53:37 Hyperlip idemia 40683067 Active 200911/11/19 23 - Comments only - Meagan Rubio PA-C - - HYPERLIP IDEMIA To continue on CRESTOR 10mg QD unless change is indicate d by results of today's laborato ry testing Problem Code: E78.5; Problem Code Type: ICD-10; Not Available [facility] 3 04:53:37 Dizzines s 349300999 Completed 200902/08/2010 Not Available [facility] 3 04:53:37 [facility] hyperten kelly 20899716 Active 201111/11/19 23 - Comments only - Meagan Rubio PA-C - - HTN Stable on PROPRANO LOL 10mg BID Problem Code: I10; Problem Code Type: ICD-10; Not Available Counts include [facility] beds at the [facility] 3 04:53:38 Cervical spondylo sis without myelopat hy 561798690 Active 195911/06/19 22 - Comments only - Meagan Rubio PA-C - Patient agrees to reach out to [facility] when she feels in a position to move forward with neurosur gical consult, as suggeste d by [facility] as next step in manageme nt. Problem Code: M47.812; Problem Code Type: ICD-10; Not Available Counts include 234 beds at the [facility] 3 04:53:38 Dysuria 71556780 Completed 201412/04/2014 Problem Code: R30.0; Problem Code Type: ICD-10; Not Available Counts include 234 beds at the [facility] 3 04:53:38 Adult health examinat ion Active 201411/11/19 23 - Comments only - Meagan Rubio PA-C - Will arrange for mammogra m @ [facility] when due in late November. Problem Code: Z00.00; Problem Code Type: ICD-10; Not Available Counts include 234 beds at the [facility] 3 04:53:38 Pain in right hip joint 98542186264 9102 Completed 201508/09/2015 07/09/19 16 - Comments [...] ICD-10; CHELITA WEAVER PA-C [address], [place], [address] , [facility]. 3 18:22:45 Palpitat ions 48259399 Active 201511/06/19 22 - Comments only - Meagan Rubio PA-C - Stable on PROPRANO LOL 10mg BID Problem Code: R00.2; Problem Code Type: ICD-10; Not Available Counts include 234 beds at the [facility] 3 04:53:38 Hearing loss 92332425 Active 2016 Problem Code: H91.90; Problem Code Type: ICD-10; Not Available [facility] 3 04:53:38 Glaucoma 66832076 Active 2017 Problem Code: H40.9; Problem Code Type: ICD-10; Not Available Counts include 234 beds at the [facility] 3 04:53:38 Disorder of skin and/or subcutan eous tissue 74981079 Completed 201712/21/2017 12/08/19 18 - Comments only - Meagan Rubio PA-C - Will refer patient to dermatol mohinder for consider ation towards excision al biopsies Problem Code: L98.9; Problem Code Type: ICD-10; Not Available Counts include 234 beds at the [facility] 3 04:53:39 Rosacea 826036739 Completed 201712/21/2017 12/08/19 18 - Comments only - Meagan Rubio PA-C - Will trial to treat with RXd METROGEL BID Problem Code: L71.9; Problem Code Type: ICD-10; Not Available Counts include 234 beds at the [facility] 3 04:53:39 Acquired right hallux valgus 97561327710 4106 Completed 201702/20/2018 02/07/20 18 - Comments only - Meagan Rubio PA-C - As per patient request, will refer to podiatry for treatmen t Problem Code: M20.11; Problem Code Type: ICD-10; Not Available Counts include 234 beds at the [facility] 3 04:53:39 Allergic rhinitis 52251535 Active 2018 Problem Code: J30.9; Problem Code Type: ICD-10; Not Available [facility] 3 04:53:39 Acute sinusiti s 94598580 Completed 201810/02/2018 09/19/19 19 - Comments only - Meagan Rubio PA-C - Given persiste nt nature of patient' s sxs, will cover with ZITHROMA X as ZPAK Problem Code: J01.90; Problem Code Type: ICD-10; Not Available Counts include 234 beds at the [facility] 3 04:53:39 Anxiety disorder 050081841 Active 201910/31/19 21 - Comments only - Meagan Rubio PA-C - Mood stable on PROZAC 20mg QD Problem Code: F41.9; Problem Code Type: ICD-10; Not Available [facility] 3 04:53:39 Sleep rest pattern finding 916266737 Active 2019 Not Available [facility] 3 04:53:39 Cellulit is of finger 45284720 Completed 202010/07/2020 10/07/19 21 - Comments only [...] L03.019; Problem Code Type: ICD-10; Not Available Counts include 234 beds at the [facility] 3 04:53:40 Dizzines s and giddines s 958049859 Completed 202002/04/2021 02/03/20 21 - Comments only - Meagan Rubio PA-C - No improvem ent on ANTIVERT . Patient provided with educatio nal handouts to instruct on self adminste red Torres dongveu rs. If sxs fail to improve with same, however, will maintain low index for ENT refer. Problem Code: R42; Problem Code Type: ICD-10; Not Available [facility] 3 04:53:40 Nerve root disorder 86823071 Active 2020 Problem Code: M54.10; Problem Code Type: ICD-10; Not Available [facility] 3 04:53:40 Screenin g mammogra phy Active 2021 Problem Code: Z12.31; Problem Code Type: ICD-10; Not Available [facility] 3 04:53:40 Disorder of skin and/or subcutan eous tissue 22262323 Completed 202111/18/2021 11/06/19 22 - Comments only - Meagan Rubio PA-C - After cleansin g the area with alcohol wipe, lesion was treated with multiple rounds of cryother apy using liquid nitrogen , followin g which bandage dressing was applied. Problem Code: L98.9; Problem Code Type: ICD-10; Not Available [facility] 3 04:53:40 Disorder of skin and/or subcutan eous tissue 97353721 Completed 202112/14/2021 12/01/19 22 - Comments only [...] L98.9; Problem Code Type: ICD-10; Not Available [facility] 3 04:53:40 History of SARS-CoV -2 11859625887 1404897 Active 2021 Problem Code: Z86.16; Problem Code Type: ICD-10; Not Available [facility] 3 04:53:41 Human papillom avirus negative squamous cell carcinom a Completed 201301/12/2023 Not Available [facility] 3 04:53:41 Cervical spondylo sis 526519699 Completed Not Available [facility] 3 04:53:41 Cellulit is of leg, excludin g foot 189012311 Completed 200901/12/2023 Not Available [facility] 3 04:53:41 Partner relation ship problem 42935948001 00 Completed 201509/02/2017 Problem Code: Z63.0; Problem Code Type: ICD-10; Not Available [facility] 3 04:53:41 Acute vaginiti s 41451174 Completed 201409/02/2017 Problem Code: N76.0; Problem Code Type: ICD-10; Not Available [facility] 3 04:53:41 Hyperten sive disorder 48889000 Completed 201101/12/2023 Not Available [facility] 3 04:53:42 Cellulit is 626569207 Completed 200909/02/2017 Problem Code: L03.119; Problem Code Type: ICD-10; [address] [place], [address] , [facility] 4 18:06:37 Human papillom a virus screenin g Completed 201309/02/2017 Problem Code: Z11.51; Problem Code Type: ICD-10; Not Available [facility] 3 04:53:42 Family history of malignan t neoplasm of digestiv e organ 717008321 Completed 200909/02/2017 Problem Code: Z80.0; Problem Code Type: ICD-10; Not Available [facility] 3 04:53:42 Cellulit is of finger 55382114 Completed 201409/02/2017 Problem Code: L03.019; Problem Code Type: ICD-10; Not Available [facility] 3 04:53:42 History of clinical finding in subject 886033707 Completed 200901/12/2023 Not Available [facility] 3 04:53:43 Adjustme nt disorder with mixed emotiona l features 13312791 Completed 200901/12/2023 Problem Code: 309.28; Problem Code Type: ICD-9; Not Available [facility] 3 04:53:43 Acute conjunct ivitis 03182184 Completed 201810/29/2020 Problem Code: H10.30; Problem Code Type: ICD-10; Not Available [facility] 3 04:53:43 Senile hyperker atosis 185252782 Completed 201609/02/2017 Problem Code: L82.1; Problem Code Type: ICD-10; Not Available [facility] 3 04:53:43 Pain in right hip joint 64027866333 9102 Active 202207/09/19 16 - Comments only [...] Problem Code Type: ICD-10; [address], [facility] [address] , [facility] 3 18:22:45 Cellulit is 632327455 Active 2023 Problem Code: L03.119; Problem Code Type: ICD-10; [address], [facility] [address] , [facility] 4 18:06:37 COVID-19 597710493 Active [address], [facility] [address] , [facility] 4 10:50:24 Problem Notes None recorded. Medical Equipment None Reported. Allergies Allergen ID Allergen Name Allergen Category Reaction Reaction Severity Criticality Documentation Date Start Date Code Code System Note Provider Name and Address Organization Details Recorded Time 42687 Product containin g 3-hydroxy -3-methyl glutaryl- coenzyme A reductase inhibitor (product) medicatio n myalgias (muscle pain) mild Not available 02/25/20232011 04917 009 SNOMED myalg ias Not Available [facility] 3 16:06:50 34852 Bactrim medicatio n rash mild Not available 02/25/20232009 86722 9 RxNorm Skin Rash Aller gyRea ction : 'Skin Rash' ; Not Available [facility] 3 16:06:50 65738 Augmentin medicatio n diarrhea mild Not available 02/25/20232011 98709 2 RxNorm diarr hea Not Available [facility] 3 16:06:50 84289 codeine medicatio n nausea mild Not available 02/25/20232009 2670 RxNorm Nause a/Vom iting /Diar oleg Aller gyRea ction : 'Naus ea/Vo mitin g/Eugenia rrhea '; Aller gyCod e: '0040 38690 32'; Aller gyNam e: 'CODE INE'; Aller gyCon ceptT ype: 'NDC' ; Not Available [facility] 3 16:06:51 51146 corn extract food,medi cation nausea Not available Not available 04/13/2023 06602 08 RxNorm KARELY askew, [facility] 3 17:32:05 Medications Name Sig Start Date [...] Not Available Not Available Not Available Vitals None Recorded Social History Question Answer Notes LastModified by Organizat ion Details LastModified Time Tobacco Smoking Status Former Smoker KARELY askew [place] [facility] 04/13/2023 17:32:56 When Did You Quit [...] Of Your Most Recent Tobacco Screening? 11/22/2023 [email or web address] Information not available 11/22/2023 What Is Your Current Pack Years? 20-29packyear s Information not available 05/11/2023 At What Age Did You Start Smoking Tobacco? 14 Information not available 05/11/2023 How Much Tobacco Do You Smoke? No Information not available 05/11/2023 Has Tobacco Cessation Counseling Been Provided? Yes [email or web address] Information not available 05/18/2023 On What Date Was Tobacco Cessation Counseling Provided? 11/22/2023 [email or web address] Information not available 11/22/2023 How Many Years [...] history of cancer of colon 6 of [facility]'s siblin gs affect ed Not available 02/25/2023 [...] preservative free, adsorbed 11/30/2021 completed Not Available [facility] 02/25/2023 05:15:02 Tdap 05/31/2011 completed Not Available Counts include 234 beds at the [facility] 05:15:03 zoster live 10/09/2014 completed Not Available [facility] 02/25/2023 05:15:03 Influenza, split virus, trivalent, preservative 01/21/2016 completed Not Available [facility] 02/25/2023 05:15:03 Influenza, split virus, trivalent, preservative 01/29/2015 completed Not Available [facility] 02/25/2023 05:15:03 Influenza, split virus, quadrivalent, PF 01/28/2020 completed Not Available [facility] 02/25/2023 05:15:03 Influenza, split virus, quadrivalent, preservative 02/01/2017 completed Not Available [facility] 02/25/2023 05:15:03 Influenza, split virus, quadrivalent, preservative 02/06/2018 completed Not Available [facility] 02/25/2023 05:15:03 zoster recombinant 12/07/[address] [facility] 02/25/2023 05:15:03 zoster recombinant 02/20/[address] [facility] 02/25/2023 05:15:03 Influenza, high-dose, quadrivalent, PF 01/21/2021 completed Not Available [facility] 02/25/2023 05:15:04 Influenza, high-dose, quadrivalent, PF 02/01/2022 completed Not Available Counts include 234 beds at the [facility] 02/25/2023 05:15:04 COVID-19, mRNA, LNP-S, PF, 100 mcg/0.5mL dose or 50 mcg/0.25mL dose 06/23/2020 completed Not Available Counts include 234 beds at the [facility] 02/25/2023 05:15:04 COVID-19, mRNA, LNP-S, PF, 100 mcg/0.5mL dose or 50 mcg/0.25mL dose 07/21/2020 completed Not Available Counts include 234 beds at the [facility] 02/25/2023 05:15:04 COVID-19, mRNA, LNP-S, PF, 100 mcg/0.5mL dose or 50 mcg/0.25mL dose 11/04/2021 completed Not Available Counts include 234 beds at the [facility] 02/25/2023 05:15:04 SARS-COV-2 (COVID-19) vaccine, UNSPECIFIED 02/21/2021 completed Not Available Counts include 234 beds at the [facility] 02/25/2023 05:15:04 Pneumococcal conjugate PCV20, polysaccharide CMF558 conjugate, adjuvant, PF 02/01/2022 completed Not Available Counts include 234 beds at the [facility] 02/25/2023 05:15:04 COVID-19, mRNA, LNP-S, bivalent, PF, 30 mcg/0.3 mL dose 03/15/2022 completed Not Available Counts include 234 beds at the [facility] 02/26/20 05:15:04 pneumococcal polysaccharide PPV23 10/09/2014 completed Not Available Counts include 234 beds at the [facility] 2022 05:15:04 pneumococcal polysaccharide PPV23 01/28/2020 completed Not Available Counts include 234 beds at the [facility] 2022 05:15:05 COVID-19, mRNA, LNP-S, PF, 50 mcg/0.5 mL 01/24/2023 completed Alanis Allred RN null, [facility] 04/14/2023 14:17:51 Respiratory syncytial virus (RSV) vaccine, unspecified 01/12/2023 completed CELSO Gracia, [facility] 04/14/2023 14:18:16 Past Encounters Encounter ID Performer Location Encounter Start Date Encounter Closed Date Diagnosis/Indication Diagnosis SNOMED-CT Code Diagnosis ICD10 Code [id number] MEAGAN RUBIO PA-C [facility] [address] [place] [address] 11/16/2023 16:45:35 11/22/2023 21:38:46 Adult health examination 077276960 Z00.00 Screening mammography 24 845770 Z12.31 Hyperlipidemia 45222939 E78.5 Major depr ession, single episode 34654267 F32.9 Essential hypertension 15024799 I10 R00.2 Chronic rhinitis 3154429 6 J31.0 [id number] DINORA WHITE, [address] [place] [address] 11/22/2023 11:20:30 11/22/2023 14:23:01 Diarrhea 49010989 R19.7 Nausea 693833156 R11.0 [id number] MEAGAN RUBIO PA-C [facility] [address] [place] [address] 11/30/2023 17:29:59 11/30/2023 17:56:19 Gastroenteritis 47478436 K52.9 Health Concerns Section Related Observation LastModified by Organization Detai ls LastModified Time None Recorded Concern Status LastModified by Organization Details LastModified Time None Recorded Payers Encounter Date Sequence Insurance Name Policy Number Policy Lerma Covered Member ID Lerma Member ID Guarantor Name 11/30/2023 1 [facility] (MEDICARE REPLACEMENT HMO) [id number] Chery Prescott [id number] Chery Prescott Notes Date Note Type Note Provider Name and Address Organization Details Recorded Time 11/30/2023 text/html HPI Notes: 68y/o female, with known corn and lactose sensitivity, presenting for f/u [facility] visit. Patient sought evaluation via [facility] 11/22/23 with c/o GI disturbance x 1 week. Following evaluation to include laboratory testing (CBC, CMP, celiac panel) and stool CX (c. diff, CX, O&P), she was RXd ZOFRAN PRN and encouraged to use OTC PEPTO vs IMMODIUM PRN for symptomatic relief. On presentation today, patient reports starting to feel a bit better. 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 Denies lightheadedness or syncope. Able to eat a bit more regularly over last few days. Some persistent lower abdominal/pelvic cramping after eating. Bowels OK, however. No residual N/V. Denies fever. Inquires about possibility for sxs reflective of sequela of recent COVID-19 infection (+ through [facility] 10/28/23) MEAGAN RUBIO PA-C [address], [place], [address], [facility]. 11/30/2023 18:30:44 OBGyn Episode No OBEpisode recorded.
--- OUTSIDE RECORDS SUMMARY | 2024-01-04 19:06 | XMS_ITS | Encounter Summary ---
Author Organization [facility] Address [facility] [place] [address] Care Team Providers Care Side Stitching Machine Operator Name Role Phone Meagan Christine Primary Care Provider [phone] Reason for Visit * Reason Comments Skin Lesion * Consultation (Routine) - Specialty Diagnoses / Procedures Referred By Contpatrice t Referred To Contact Dermatology Diagnoses FACIAL SKIN LESION Meagan Christine PA [address] [place] [address] [facility] Dermatology [address] [place] [address] Referral ID Status Reason Start Date Expiration Date V isits Requested Visits Authorized [id number] Consult, Test & Treat [facility] 01/23/2018 01/23/2019 6 6 Encounter Details Date Type Department Care Team ([facility] Contact Info) Description 03/13/2018 1:00 PM EST Office Visit Dermatology at [facility] [address] [place] [address] Kenzie Young MD [facility] [address] [facility] [place] [address] Lentigines; SK (seborrheic keratosis); Seborrheic keratosis, inflamed; Spider veins; Sebaceous hyperplasia; Acne rosacea Social History Tobacco Use Types Packs/Day Years Used Date Smoking Tobacco: Never Smokeless Tobacco: Never Sex and Gender Information Value Date Recorded Sex Assigned at Not on file Gender Identity Not on file Sexual Orientation Not on file documented as of this encounter Progress Notes * Cuca Zaman, PUBLIC ADDRESS SYSTEM OPERATOR - 03/13/2018 1:00 PM EST DERMATOLOGY CONSULT [...] (BABY ASPIRIN) 81 mg chewable tablet ??? [place]-3 Fatty Acids-Vitamin E (OMEGA-3 FISH OIL) 1,000-5 [...] MD. Kenzie Young MD Section of Dermatology [facility] cc: Meagan Christine PA [address] [place] [address] documented in this encounter Plan of Treatment Not on file documented as of this encounter Visit Diagnoses Diagnosis Lentigines Other dyschromia SK (seborrheic keratosis) Other seborrheic keratosis Seborrheic keratosis, inflamed Inflamed seborrheic keratosis Spider veins Nevus, non-neoplastic Sebaceous hyperplasia Other specified disease of sebaceous glands Acne rosacea Rosacea documented in this encounter Care Teams Side Stitching Machine Operator Relationship Specialty Start Date End Date Meagan Christine PA [address] [place] [address] PCP - General Family Medicine 01/23/18 12/04/19 documented as of this encounter
--- OUTSIDE RECORDS SUMMARY | 2024-01-04 19:06 | XMS_ITS | Continuity of Care Document ---
Author Organization [place] [facility], [facility] - [facility] Address [address] [place] [address] Care Team Providers Care Film Editor Supervisor Name Role Phone MEAGAN RUBIO Primary Care Provider Assessment No assessment recorded. Plan of Treatment Reminders Order Date Submit Date Provider Last Modified By Organization Details Last Modified Time Details Appointments Follow Up 30 2023 03:30P M Not available Not available Not available Lab C diff toxin DNA, stool 2023 024 [facility] ([facility] Direct), [address] [place] [address] [place], [address], 11/22/2023 23:09:02 gastroint estinal pathogens panel, culture, stool 2023 024 [facility] ([facility]), [address] [place] [address] [place], [address], 11/24/2023 08:33:37 O&P (ova & parasites ), stool 2023 024 [facility] ([facility]), [address] [place] [address] [place], [address], 11/29/2023 15:20:11 CMP, serum or plasma 2023 024 [facility] (Registration ), [address] [place] [address] [place], [address], 11/22/2023 22:11:58 celiac disease comprehen sive panel, serum 2023 024 [facility] (Registration ), [address] [place] [address] , [place], [address], 11/24/2023 12:46:36 CBC w/ auto diff 2023 024 [facility] (Registration ), [address] [place] [address] [place], [address], 11/22/2023 21:49:55 venipunct ure 2023 024 [facility] (Registration ), [address] [place] [address] [place], [address], 11/22/2023 14:24:57 Referral None recorded. Procedures None recorded. Surgeries None recorded. Imaging None recorded. Medication Orders ondansetr on 4 mg disintegr ating tablet 2023 024 [facility], [address] [place], [address], 11/22/2023 14:22:13 Patient TargetsNo targets recorded. Patient Instructions Encounter Date Encounter Id Patient Instructions Last Modified By Organization Details Last Modified Time 11/22/2023 [id number] Today, we are checking some bloodwork to evaluate for infection or anemia (low iron), as well as kidney function, liver enzymes, electrolytes, and a celiac panel to look for gluten allergy. We will call with some results tomorrow, and the celiac panel may take a few extra days. You will collect stool studies at home, and deliver those to the [facility] lab within 2 hours of collecting those [...] a bland diet (bananas, rice, applesauce, toast). [email or web address] Not available 11/22/2023 14:12:31 Reason for Referral Physical Therapist Referral for Pain in right hip joint Referring Physician: Chelita Weaver, Family Medicine, Encounter Date: 04/13/2023 Results Created Date Observation Date Name Description Value Unit Range Abnormal Flag Note LastModifiedBy Organization Detail LastModifiedTime 12/29/19 24 12/29/2023 mammo graph y imagi ng repor t Soco farrell Name: Jasmine Melchor Unit #: [id number] Loc: DI Orderi ng Provid er: Deidra mullen,Nila WILLIS Accoun t #: [id number] Status : REG CLI Primar y [...] The mammog agustina demons trates the soco farrell's breast tissue is dense. Dense breast tissue [...] report in error, please notify us immedi camillaly at and return the origin al report to us at the addres s above. Thank- you. [email or web address] [facility] [address], [place], [address] 12/29/2023 14:08:06 01/01/20 24 10/17/2019 DEXA No observ ation record ed. Not Available 12/31 21:35:54 01/01/20 24 11/29/2019 bone densi ty No observ ation record ed. Not Available 12/31 21:37:17 01/01/20 24 01/28/2021 MRI, neck No observ ation record ed. Not Available 12/31 21:37:20 01/01/20 24 10/03/2018 MAMMO , charlie catie No observ ation record ed. Not [...] Organization Details Recorded Time Nicotine dependen ce 23449187 Active 2009 Problem Code: Z87.891; Problem Code Type: ICD-10; Not Available [facility] 3 04:53:37 Major depressi on, single episode 55237295 Active 200911/11/19 23 - Comments only - Meagan Rubio PA-C - - DEPRESSI ON Well maintain ed on PROZAC 20mg QD Problem Code: F32.9; Problem Code Type: ICD-10; Not Available [facility] 3 04:53:37 Primary malignan t neoplasm of vulva 79920746 Completed 200902/08/2010 Problem Code: 184.4; Problem Code Type: ICD-9; Not Available [facility] 3 04:53:37 Carpal tunnel syndrome 19362033 Completed 200902/08/2010 Not Available [facility] 3 04:53:37 Hyperlip idemia 15664807 Active 200911/11/19 23 - Comments only - Meagan Rubio PA-C - - HYPERLIP IDEMIA To continue on CRESTOR 10mg QD unless change is indicate d by results of today's laborato ry testing Problem Code: E78.5; Problem Code Type: ICD-10; Not Available [facility] 3 04:53:37 Dizzines s 570331701 Completed 200902/08/2010 Not Available [facility] 3 04:53:37 Essentia l hyperten kelly 72795191 Active 201111/11/19 23 - Comments only - Meagan Rubio PA-C - - HTN Stable on PROPRANO LOL 10mg BID Problem Code: I10; Problem Code Type: ICD-10; Not Available [facility] 3 04:53:38 Cervical spondylo sis without myelopat hy 497795308 Active 195911/06/19 22 - Comments only - Meagan Rubio PA-C - Patient agrees to reach out to [facility] when she feels in a position to move forward with neurosur gical consult, as suggeste d by [facility] as next step in manageme nt. Problem Code: M47.812; Problem Code Type: ICD-10; Not Available [facility] 3 04:53:38 Dysuria 45261467 Completed 201412/04/2014 Problem Code: R30.0; Problem Code Type: ICD-10; Not Available [facility] 3 04:53:38 Adult health examinat ion Active 201411/11/19 23 - Comments only - Meagan Rubio PA-C - Will arrange for mammogra m @ [facility] when due in late November. Problem Code: Z00.00; Problem Code Type: ICD-10; Not Available [facility] 3 04:53:38 Pain in right hip joint 57748172618 9102 Completed 201508/09/2015 07/09/19 16 - Comments [...] ICD-10; CHELITA WEAVER PA-C [address], [place], [address] , [facility] 3 18:22:45 Palpitat ions 37166477 Active 201511/06/19 22 - Comments only - Meagan Rubio PA-C - Stable on PROPRANO LOL 10mg BID Problem Code: R00.2; Problem Code Type: ICD-10; Not Available [facility] 3 04:53:38 Hearing loss 45078052 Active 2016 Problem Code: H91.90; Problem Code Type: ICD-10; Not Available [facility] 3 04:53:38 Glaucoma 52158789 Active 2017 Problem Code: H40.9; Problem Code Type: ICD-10; Not Available [facility] 3 04:53:38 Disorder of skin and/or subcutan eous tissue 67679302 Completed 201712/21/2017 12/08/19 18 - Comments only - Meagan Rubio PA-C - Will refer patient to dermatol mohinder for consider ation towards excision al biopsies Problem Code: L98.9; Problem Code Type: ICD-10; Not Available [facility] 3 04:53:39 Rosacea 458767281 Completed 201712/21/2017 12/08/19 18 - Comments only - Meagan Rubio PA-C - Will trial to treat with RXd METROGEL BID Problem Code: L71.9; Problem Code Type: ICD-10; Not Available [facility] 3 04:53:39 Acquired right hallux valgus 25569295678 4106 Completed 201702/20/2018 02/07/20 18 - Comments only - Meagan Rubio PA-C - As per patient request, will refer to podiatry for treatmen t Problem Code: M20.11; Problem Code Type: ICD-10; Not Available [facility] 3 04:53:39 Allergic rhinitis 09808376 Active 2018 Problem Code: J30.9; Problem Code Type: ICD-10; Not Available [facility] 3 04:53:39 Acute sinusiti s 28259944 Completed 201810/02/2018 09/19/19 19 - Comments only - Meagan Rubio PA-C - Given persiste nt nature of patient' s sxs, will cover with ZITHROMA X as ZPAK Problem Code: J01.90; Problem Code Type: ICD-10; Not Available [facility] 3 04:53:39 Anxiety disorder 531622031 Active 201910/31/19 21 - Comments only - Meagan Rubio PA-C - Mood stable on PROZAC 20mg QD Problem Code: F41.9; Problem Code Type: ICD-10; Not Available [facility] 3 04:53:39 Sleep rest pattern finding 274654358 Active 2019 Not Available [facility] 3 04:53:39 Cellulit is of finger 51483634 Completed 202010/07/2020 10/07/19 21 - Comments only [...] Problem Code Type: ICD-10; Not Available [facility] 3 04:53:40 Dizzines s and giddines s 505704671 Completed 202002/04/2021 02/03/20 21 - Comments only - Meagan Rubio PA-C - No improvem ent on ANTIVERT . Patient provided with educatio nal handouts to instruct on self adminste mayra sheffield rs. If sxs fail to improve with same, however, will maintain low index for ENT refer. Problem Code: R42; Problem Code Type: ICD-10; Not Available [facility] 3 04:53:40 Nerve root disorder 20880756 Active 2020 Problem Code: M54.10; Problem Code Type: ICD-10; Not Available [facility] 3 04:53:40 Screenin g mammogra phy Active 2021 Problem Code: Z12.31; Problem Code Type: ICD-10; Not Available [facility] 3 04:53:40 Disorder of skin and/or subcutan eous tissue 24144523 Completed 202111/18/2021 11/06/19 22 - Comments only - Meagan Rubio PA-C - After cleansin g the area with alcohol wipe, lesion was treated with multiple rounds of cryother apy using liquid nitrogen , followin g which bandage dressing was applied. 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 a Completed 201301/12/2023 Not Available [facility] 3 04:53:41 Cervical spondylo sis 354525672 Completed Not Available [facility] 3 04:53:41 Cellulit is of leg, excludin g foot 761197123 Completed 200901/12/2023 Not Available [facility] 3 04:53:41 Partner relation ship problem 94870167568 00 Completed 201509/02/2017 Problem Code: Z63.0; Problem Code Type: ICD-10; Not Available [facility] 3 04:53:41 Acute vaginiti s 61727454 Completed 201409/02/2017 Problem Code: N76.0; Problem Code Type: ICD-10; Not Available [facility] 3 04:53:41 Hyperten sive disorder 28754966 Completed 201101/12/2023 Not Available [facility] 3 04:53:42 Cellulit is 555927835 Completed 200909/02/2017 Problem Code: L03.119; Problem Code Type: ICD-10; CHELITA WEAVER PA-C [address], [place], [address] , [facility] 4 18:06:37 Human papillom a virus screenin g Completed 201309/02/2017 Problem Code: Z11.51; Problem Code Type: ICD-10; Not Available [facility] 3 04:53:42 Family history of malignan t neoplasm of digestiv e organ 072282367 Completed 200909/02/2017 Problem Code: Z80.0; Problem Code Type: ICD-10; Not Available [facility] 3 04:53:42 Cellulit is of finger 82676159 Completed 201409/02/2017 Problem Code: L03.019; Problem Code Type: ICD-10; Not Available [facility] 3 04:53:42 History of clinical finding in subject 275836344 Completed 200901/12/2023 Not Available [facility] 3 04:53:43 Adjustme nt disorder with mixed emotiona l features 08407701 Completed 200901/12/2023 Problem Code: 309.28; Problem Code Type: ICD-9; Not Available [facility] 3 04:53:43 Acute conjunct ivitis 53221669 Completed 201810/29/2020 Problem Code: H10.30; Problem Code Type: ICD-10; Not Available [facility] 3 04:53:43 Senile hyperker atosis 417484694 Completed 201609/02/2017 Problem Code: L82.1; Problem Code Type: ICD-10; Not Available [facility] 3 04:53:43 Pain in right hip joint 96085089190 9102 Active 202207/09/19 16 - Comments only - Meagan Rubio PA-C - Given high insuranc e deductab le, patient hesitant to accept refer to allow to return to PT. Instead, as first line, patient intends to contact PT provider for copy of at-home exercise sheet used in managmen t of [place]. Otherwis e to continue with OTC NSAIDs, topical analgesi cs, ice, etc. Problem Code: M25.551; Problem Code Type: ICD-10; [address], [place], [address] , [facility] 3 18:22:45 Cellulit is 076667978 Active 2023 Problem Code: L03.119; Problem Code Type: ICD-10; [address], [place], [address] , [facility] 4 18:06:37 COVID-19 975258006 Active [address], [facility] [address] , [facility] 4 10:50:24 Problem Notes None recorded. Medical Equipment None Reported. Allergies Allergen ID Allergen Name Allergen Category Reaction Reaction Severity Criticality Documentation Date Start Date Code Code System Note Provider Name and Address Organization Details Recorded Time 58251 Product containin g 3-hydroxy -3-methyl glutaryl- coenzyme A reductase inhibitor (product) medicatio n myalgias (muscle pain) mild Not available 02/25/20232011 42838 009 SNOMED myalg ias Not Available [facility] 3 16:06:50 71208 Bactrim medicatio n rash mild Not available 02/25/20232009 99935 9 RxNorm Skin Rash Aller gyRea ction : 'Skin Rash' ; Not Available [facility] 3 16:06:50 15121 Augmentin medicatio n diarrhea mild Not available 02/25/20232011 52505 2 RxNorm diarr hea Not Available [facility] 3 16:06:50 48869 codeine medicatio n nausea mild Not available 02/25/20232009 2670 RxNorm Nause a/Vom iting /Diar oleg Aller gyRea ction : 'Naus ea/Vo mitin g/Eugenia rrhea '; Aller gyCod e: '0040 73814 32'; Aller gyNam e: 'CODE INE'; Aller gyCon ceptT ype: 'NDC' ; Not Available [facility] 3 16:06:51 89350 corn extract food,medi cation nausea Not available Not available 04/13/2023 11596 08 RxNorm KARELY askew, [facility] 3 17:32:05 Medications Name Sig [...] Updated DateTime 4 168.91 cm 21.5 kg/m2 68355.9 7 g 98.3 [degF] 99 % 99 % 69 /min 18 /min 165 mm[Hg] 75 mm[Hg] Bethany Guevara MA [facility] 4 12:32:55 Social History Question Answer Notes LastModified by Organizat ion Details LastModified Time Tobacco Smoking Status Former Smoker KARELY askew [facility] 04/13/2023 17:32:56 When Did You Quit Smoking? 16+yearssince [email or web address] Information not available 04/13/2023 Would You Say [...] Of Your Most Recent Tobacco Screening? 11/22/2023 [email or web address] Information not available 11/22/2023 What Is Your Current Pack Years? 20-29packyear s Information not available 05/11/2023 At What Age Did You Start Smoking Tobacco? 14 Information not available 05/11/2023 How Much Tobacco Do You Smoke? No Information not available 05/11/2023 Has Tobacco Cessation Counseling Been Provided? Yes [email or web address] Information not available 05/18/2023 On What Date Was Tobacco Cessation Counseling Provided? 11/22/2023 [email or web address] Information not available 11/22/2023 How Many Years [...] preservative free, adsorbed 11/30/2021 completed Not Available [facility] 02/25/2023 05:15:02 Tdap 05/31/2011 completed Not Available [facility] 05:15:03 zoster live 10/09/2014 completed Not Available [facility] 02/25/2023 05:15:03 Influenza, split virus, trivalent, preservative 01/21/2016 completed Not Available [facility] 02/25/2023 05:15:03 Influenza, split virus, trivalent, preservative 01/29/2015 completed Not Available [facility] 02/25/2023 05:15:03 Influenza, split virus, quadrivalent, PF 01/28/2020 completed Not Available [facility] 02/25/2023 05:15:03 Influenza, split virus, quadrivalent, preservative 02/01/2017 completed Not Available [facility] 02/25/2023 05:15:03 Influenza, split virus, quadrivalent, preservative 02/06/2018 completed Not Available [facility] 02/25/2023 05:15:03 zoster recombinant 12/07/2017 completed Not Available [facility] 02/25/2023 05:15:03 zoster recombinant 02/20/2018 completed Not Available [facility] 02/25/2023 05:15:03 Influenza, high-dose, quadrivalent, PF 01/21/2021 completed Not Available [facility] 02/25/2023 05:15:04 Influenza, high-dose, quadrivalent, PF 02/01/2022 completed Not Available [facility] 02/25/2023 05:15:04 COVID-19, mRNA, LNP-S, PF, 100 mcg/0.5mL dose or 50 mcg/0.25mL dose 06/23/2020 completed Not Available [facility] 02/25/2023 05:15:04 COVID-19, mRNA, LNP-S, PF, 100 mcg/0.5mL dose or 50 mcg/0.25mL dose 07/21/2020 completed Not Available [facility] 02/25/2023 05:15:04 COVID-19, mRNA, LNP-S, PF, 100 mcg/0.5mL dose or 50 mcg/0.25mL dose 11/04/2021 completed Not Available [facility] 02/25/2023 05:15:04 SARS-COV-2 (COVID-19) vaccine, UNSPECIFIED 02/21/2021 completed Not Available [facility] 02/25/2023 05:15:04 Pneumococcal conjugate PCV20, polysaccharide MTT567 conjugate, adjuvant, PF 02/01/2022 completed Not Available [facility] 02/25/2023 05:15:04 COVID-19, mRNA, LNP-S, bivalent, PF, 30 mcg/0.3 mL dose 03/15/2022 completed Not Available [facility] 02/26/20 05:15:04 pneumococcal polysaccharide PPV23 10/09/2014 completed Not Available [facility] 2022 05:15:04 pneumococcal polysaccharide PPV23 01/28/2020 completed Not Available [facility] 2022 05:15:05 COVID-19, mRNA, LNP-S, PF, 50 mcg/0.5 mL 01/24/2023 completed Alanis Allred RN null, [facility] 04/14/2023 14:17:51 Respiratory syncytial virus (RSV) vaccine, unspecified 01/12/2023 completed Alanis Allred RN null, [facility] 04/14/2023 14:18:16 Past Encounters Encounter ID Performer Location Encounter Start Date Encounter Closed Date Diagnosis/Indication Diagnosis SNOMED-CT Code Diagnosis ICD10 Code [id number] CHELITA WEAVER PA-C [address] [place] [address] 10/28/2023 09:39:01 10/28/2023 11:12:22 COVID-19 800861845 U07.1 [id number] MEAGAN RUBIO PA-C [facility] [address] [place] [address] 11/16/2023 16:45:35 11/22/2023 21:38:46 Adult health examination 993012038 Z00.00 Screening mammography 24 510640 Z12.31 Hyperlipidemia 87417658 E78.5 Major depr ession, single episode 73129276 F32.9 Essential hypertension 47249244 I10 R00.2 Chronic rhinitis 4538783 6 J31.0 [id number] DINORA WHITE [address] [place] [address] 11/22/2023 11:20:30 11/22/2023 14:23:01 Diarrhea 27960102 R19.7 Nausea 090115020 R11.0 Health Concerns Section Related Observation LastModified by Organization Detai ls LastModified Time None Recorded Concern Status LastModified by Organization Details LastModified Time None Recorded Payers Encounter Date Sequence Insurance Name Policy Number Policy Lerma Covered Member ID Lerma Member ID Guarantor Name 11/22/2023 1 [facility] (MEDICARE REPLACEMENT HMO) [id number] Chery Prescott [id number] Chery Prescott Notes Date Note Type Note Provider Name and Address Organization Details Recorded Time 11/22/2023 text/html HPI Notes: Patie nt with onset of symptoms 1 week ago, with bloating, abdominal distension, and diarrhea stools ([place] type 5 to 7), several times per [...] the event of any other food sensitivity. CECILIA BISHOP [address], [place], [address], [facility]. 11/22/2023 14:57:22 OBGyn Episode No OBEpisode recorded.
--- OUTSIDE RECORDS SUMMARY | 2024-01-04 19:06 | XMS_ITS | Referral Summary ---
Author Organization [facility] Address [address] [place] [address] Care Team Providers Care Integrated Logistics Operations Manager Name Role Phone Meagan Christine PA-C Primary Care Provider + Encounters Date Type Department Care Team Description 11/23/2023 Lab Requisition [facility] Pathology & Laboratory [facility] [address] [place] [address] Outr Resulting Lab, Provider 11/23/2023 Lab Requisition [facility] Pathology & Laboratory [facility] [address] [place] [address] Outr Resulting Lab, Provider from Last 3 [...] Salmonella PCR Negative Negative 11/23/2023 20:17 EDT [facility] Shigella/Enteroin vasive E. coli Negative Negative 11/23/2023 20:17 EDT [facility] HN LAB CAMPYLOBACTER PCR Negative Negative 11/23/2023 20:17 EDT [facility] Shiga Toxin PCR Negative Negative 20:17 EDT [facility] Feces SPECIMEN FROM RECTUM / Unknown 11/22/2023 17:00 EDT 11/23/2023 17:01 EDT Provider Outr Resulting Lab MICROBIOLOGY - GENERAL ORDERABLES Performing Organization Address [facility] Co de Phone Number [facility] [address] [place] [address] * CELIAC DISEASE PANEL (11/22/2023 14:10 EDT) Tissue Transglutaminase Antibody, IgA <4.0 <20.0 CU 11/24/2023 11:42 EDT [facility] Comment: A negative result may be due to IgA deficiency and does not rule out celiac disease. Negative: <20.0 CU Weak Positive: 20.0-30.0 CU Positive: >30.0 CU Results were obtained with the [employer] QUANTA Flash h-tTG IgA chemiluminescent immunoassay. Values obtained with different manufacturers' assay methods may not be used interchangeably. IgA 270 85 - 499 mg/dL 11/24/2023 11:42 EDT [facility] Celiac Disease Interpretation Negative Serology. Celiac disease unlikely. Approximately 10% of patients with celiac disease are seronegative. Patients who are already adhering to a gluten-free diet may also be seronegative. If celiac disease is highly clinically suspected, referral to gastroenterology for additional evaluation is recommended. 11/24/2023 11:42 EDT [facility] Blood VENOUS BLOOD / Unknown 11/22/2023 14:10 EDT 11/23/2023 17:13 EDT Provider Outr Resulting Lab IMMUNOLOGY A ND SEROLOGY ORDERABLES Performing Organization Address [facility] Co de Phone Number [facility] [address] [place], [place] [phone] * HEPATITIS C AB W REFLEX TO HCV RNA BY PCR (11/19/2020 7:17 EDT) Hep C Antibody Negative Negative 11/20/2020 9:36 EDT [facility] Blood VENOUS BLOOD / Unknown 11/19/2020 7:17 EDT 11/19/2020 15:33 EDT Provider Outr Resulting Lab CHEMISTRY & BLOOD GAS ORDERABLES [facility] [address] [place] [address] from Last 3 Months or Most Recently Relevant to Health Maintenance Care Teams Integrated Logistics Operations Manager Relationship Specialty Start Date End Date Meagan Christine PA-C [address] [place] [address] PCP - General 04/18/22
--- OUTSIDE RECORDS SUMMARY | 2024-01-04 19:06 | XMS_ITS | Encounter Summary ---
Author Organization [facility] Address [address] [place] [address] Care Team Providers Care Sales Attendant Building Materials Name Role Phone Unknown, Provider Primary Care Provider Encounter Details Date Type Department Care Team (Late st Contact Info) Description 11/06/2013 Results Only [facility] Laboratory Services - [facility] ([facility] [address] [place], [place] [address] Kishore Reyes, DO [address] [facility] [address] [place], [place] [id number] Social History Tobacco Use Types Packs/Day Years [...] ? REJI SMITH ? Accession #: ? [id number] ? : ? 1955 (Age: 58) ??F [...] PATHOLOGY ORDER [facility] [address] [place] [address] documented in this encounter Visit Diagnoses Not on filedocumented in this encounter Care Teams Sales Attendant Building Materials Relationship Specialty Start Date End Date Unknown, Provider, PCP - General 06/17/10 04/17/22 documented as of this encounter
--- OUTSIDE RECORDS SUMMARY | 2024-01-04 19:06 | XMS_ITS | Encounter Summary ---
Author Organization [facility] Address [address] [place] [address] Care Team Providers Care Dairy Grazer Name Role Phone Unknown, Provider Primary Care Provider [phone] Encounter Details Date Type Department Care Team ([facility] st Contact Info) Description 09/18/2018 Results Only [facility]- [facility] [phone] Maia Rubio PA-C [address] [place] [phone] Social History Tobacco Use Types Packs/Day Years [...] ? REJI SMITH ? Accession #: ? [id number] ? : ? 1955 (Age: 63) ??F [...] types 16,18,31,33,35, 39,45,51,52,56,58, 59,66, and 68 by rod and tube straightener mediated amplification. Comments Document reviewed and electronically signed by: ? System Interface ? Report date: 09/25/2018 By the signature above, the attending physician certifies that he/she has personally conducted a gross and/or microscopic examination of the described specimens and rendered or confirmed the above diagnosis. End of Report [facility] 09/18/2018 09/20/2018 Maia Rubio PA-C PATHOLOGY ORDERA [facility] [address] [place] [address] documented in this encounter Visit Diagnoses Not on filedocumented in this encounter Care Teams Dairy Grazer Relationship Specialty Start Date End Date Unknown, Provider, PCP - General 06/17/10 04/17/22 documented as of this encounter
--- OUTSIDE RECORDS SUMMARY | 2024-01-04 19:06 | XMS_ITS | Encounter Summary ---
Author Organization [facility] [place] [address] Care Team Providers Care Fiberglass Roller Name Role Phone Unknown Primary Care Provider Unavailabl e Encounter Details Date Type Department Care Team ([facility] st Contact Info) Description 10/02/2003 Orders Only Lab [facility] [place] [address] Raul Renteria MD [place], [place] Social History Tobacco Use Types Packs/Day [...] 8:37 PM EDT) Surgical Pathology Report [id number] ? Location: The signing pathologist has (i) [...] on filedocumented in this encounter Care Teams Fiberglass Roller Relationship Specialty Start Date End Date Unknown None PCP - General 12/05/19 documented as of this encounter
--- OUTSIDE RECORDS SUMMARY | 2024-01-04 19:06 | XMS_ITS | Encounter Summary ---
Author Organization [facility] Address [address] [place] [address] Care Team Providers Care Clerk Travel Reservations Name Role Phone Unknown, Provider Primary Care Provider Encounter Details Date Type Department Care Team (Latest Contact Info) Description 11/06/2013 13:03 EDT - 11/06/2013 23:59 EDT Hospital Encounter [address] [address] Unknown, Provider, Discharge Disposition: Home or Self Care Social History Tobacco Use Types Packs/Day Years Used Date Smoking Tobacco: Never Assessed Sex and Gender Information Value Date Recorded Sex Assigned at Not on file Gender Identity Not on file Sexual Orientation Not on file documented as of this encounter Discharge Disposition Disposition Code Departure Means Destination Home or Self Residential documented in this encounter Plan of Treatment Not on file documented as of this encounter Visit Diagnoses Not on filedocumented in this encounter Care Teams Clerk Travel Reservations Relationship Specialty Start Date End Date Unknown, Provider, PCP - General 06/17/10 04/17/22 documented as of this encounter
--- OUTSIDE RECORDS SUMMARY | 2024-01-04 19:06 | XMS_ITS | Encounter Summary ---
Author Organization [facility] Address [address] [place] [address] Care Team Providers Care Clinical Nurse Occupational Medicine Name Role Phone Unavailable Primary Care Provider Unavailabl e Encounter Details Date Type Department Care Team (Late st Contact Info) Description 02/08/2007 Results Only [facility] - [facility] [address] [place] [address] Katerina Leger, ACCOUNT CLASSIFICATION CLERK [address] [place] [address] Social History Tobacco Use Types [...] LUIS REJI Hilario ? Accession #: ? [id number] : ? 1955 (Age: 51) ??F ?Collect Date: ? 02/08/2007 Location: ? [facility] ? Receive Date: ? 02/09/2007 Provider: ?KATERINA LEGER [employer] Copy to: ? Specimen/Source: ?ThinPrep Pap Test, Endocervix, processed on [employer]ingTime ThinPrep Imaging System, with manual evaluation Last Menstrual Period: ? 07/23 Other: ? 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
--- OUTSIDE RECORDS SUMMARY | 2024-01-04 19:06 | XMS_ITS | Encounter Summary ---
Author Organization [facility] Address [address] [place] [address] Care Team Providers Care Strapper Name Role Phone Unknown, Provider Primary Care Provider [phone] Meagan Christine PA-C Primary Care Provider + Encounter Details Date Type Department Care Team (Latest Contact Info) Description 11/09/[address] [facility] Pathology & Laboratory Medicine - [facility] [address] [place] [address] Meagan Christine PA-C [address] [place] [phone] Encounter for gynecological examination (general) (routine) without [...] Negative Negative 11/12/2021 15:15 T [facility] Comment:No E6 or E7 mRNA is detected from HPV types 16,18,31,33,35,39,45,51,52,56,58,59,66, and 68 by trekking guide mediated amplification. Papanicolaou smear specimen (specimen) CERVIX UTERI STRUCTURE / Unknown 11/04/2021 5:30 EDT 11/11/2021 12:41 EDT Meagan Christine PA-C MICROBIOLOGY - G ENERAL ORDERABLES [facility] [address] [place] [address] * PAP TEST (11/04/2021 5:30 EDT) Specimens [...] types 16,18,31,33,35,39 ,45,51,52,56,58,5 9,66, and 68 by trekking guide mediated amplification.Patricia ting was performed on specimen [id number] and was resulted on 11/12/2021 1510 EDT by CHELY, LAB INSTRUMENT RESULTS IN 11/12/2021 15:15 T [facility] Performing Lab [facility] 11/12/2021 15:15 [facility] Scanned Images 11/12/2021 15:15 EDT [facility] Papanicolaou smear specimen (specimen) CERVIX UTERI STRUCTURE / Unknown 11/04/2021 5:30 EDT 11/09/2021 10:52 EDT Meagan Christine PA-C PATHOLOGY ORDERA BLES [facility] [address] [place] [address] documented in this encounter Visit Diagnoses Diagnosis Encounter for gynecological examination (general) (routine) without abnormal findings documented in this encounter Care Teams Strapper Relationship Specialty Start Date End Date Unknown, Provider, PCP - General 06/17/10 04/17/22 Meagan Christine PA-C [address] [place] [phone] PCP - General 04/18/22 documented as of this encounter
--- OUTSIDE RECORDS SUMMARY | 2024-01-04 19:06 | XMS_ITS | Clinical Summary ---
Author Organization [facility] Address [address] [place] [address] Care Team Providers Care Volumetric Weigher Name Role Phone Meagan Christine PA-C Primary Care Provider + Encounters Date Type Department Care Team Description 11/23/2023 Lab Requisition [facility] Pathology & Laboratory [facility] [address] [place] [address] Outr Resulting Lab, Provider 11/23/2023 Lab Requisition [facility] Pathology & Laboratory [facility] [address] [place] [address] Outr Resulting Lab, Provider from Last 3 [...] Salmonella PCR Negative Negative 11/23/2023 20:17 EDT [facility] Shigella/Enteroin vasive E. coli Negative Negative 11/23/2023 20:17 EDT [facility] HN LAB CAMPYLOBACTER PCR Negative Negative 11/23/2023 20:17 EDT [facility] Shiga Toxin PCR Negative Negative 20:17 EDT [facility] Feces SPECIMEN FROM RECTUM / Unknown 11/22/2023 17:00 EDT 11/23/2023 17:01 EDT Provider Outr Resulting Lab MICROBIOLOGY - GENERAL ORDERABLES [facility] [address] [place] [address] * CELIAC DISEASE PANEL (11/22/2023 14:10 EDT) Tissue Transglutaminase Antibody, IgA <4.0 <20.0 CU 11/24/2023 11:42 EDT [facility] Comment: A negative result may be due to IgA deficiency and does not rule out celiac disease. Negative: <20.0 CU Weak Positive: 20.0-30.0 CU Positive: >30.0 CU Results were obtained with the [employer] QUANTA Flash h-tTG IgA chemiluminescent immunoassay. Values obtained with different manufacturers' assay methods may not be used interchangeably. IgA 270 85 - 499 mg/dL 11/24/2023 11:42 EDT [facility] Celiac Disease Interpretation Negative Serology. Celiac disease unlikely. Approximately 10% of patients with celiac disease are seronegative. Patients who are already adhering to a gluten-free diet may also be seronegative. If celiac disease is highly clinically suspected, referral to gastroenterology for additional evaluation is recommended. 11/24/2023 11:42 EDT [facility] Blood VENOUS BLOOD / Unknown 11/22/2023 14:10 EDT 11/23/2023 17:13 EDT Provider Outr Resulting Lab IMMUNOLOGY A ND SEROLOGY ORDERABLES [facility] [address] [place] [address] * HEPATITIS C AB W REFLEX TO HCV RNA BY PCR (11/19/2020 7:17 EDT) Hep C Antibody Negative Negative 11/20/2020 9:36 EDT [facility] Blood VENOUS BLOOD / Unknown 11/19/2020 7:17 EDT 11/19/2020 15:33 EDT Provider Outr Resulting Lab CHEMISTRY & BLOOD GAS ORDERABLES Performing Organization Address City/[facility]/ZIP Co de Phone Number [facility] [address] [place] [address] from Last 3 Months or Most Recently Relevant to Health Maintenance Care Teams Volumetric Weigher Relationship Specialty Start Date End Date Meagan Christine PA-C [address] [place] [phone] PCP - General 04/18/22
--- OUTSIDE RECORDS SUMMARY | 2024-01-04 19:06 | XMS_ITS | Continuity of Care Document ---
Author Organization [place] - [facility], [facility] Address [address] [place] [address] [address] [place] [address] Care Team Providers Care Multi Needle Machine Operator Name Role Phone MEAGAN RUBIO Primary Care [...] upper respirato ry specimen 2023 024 [email or web address] [facility], [address] [place] [address], [address], [place], [address], 10/28/2023 10:50:28 Referral None recorded. Procedures None recorded. Surgeries None recorded. Imaging None recorded. Medication Orders None recorded. Patient TargetsNo targets recorded. Patient Instructions Encounter Date Encounter Id Patient Instructions Last Modified By Organization Details Last Modified Time 10/28/2023 [id number] 1. You are COVID-positive. 2. Your lung exam is reassuring. No signs of pneumonia. No wheezing. 3. I have offered you Tessalon Perles to help with cough but you have [...] sooner follow-up. [email or web address] Not available 10/28/2023 11:11:42 Reason for Referral Physical Therapist Referral for Pain in right hip joint Referring Physician: Chelita Dawkins, Family Medicine, Encounter Date: 04/13/2023 Results Created Date Observation Date Name Description Value Unit Range Abnormal Flag Note LastModifiedBy Organization Detail LastModifiedTime 10/28/19 24 10/28/2023 influ cinthya virus A + B + SARS- CoV-2 (COVI D19) Ag panel , rapid IA, upper respi rator y speci men Influenza A negati ve Not Available [address], [place], [address], 10/28/2023 10:31:23 10/28/19 24 10/28/2023 influ cinthya virus A + B + SARS- CoV-2 (COVI D19) Ag panel , rapid IA, upper respi rator y speci men Influenza B negati ve Not Available [address], [place], [address], 10/28/2023 10:31:23 10/28/19 24 10/28/2023 influ cinthya virus A + B + SARS- CoV-2 (COVI D19) Ag panel , rapid IA, upper respi rator y speci men SARS-COV-2 positi ve Not Available [address], [place], [address], 10/28/2023 10:31:23 12/29/19 24 12/29/2023 mammo graph y imagi ng ion t Marco Antonio t Name: Jasmine Melchor Unit #: [id number] Loc: DI Orderi ng Provid er: Deidra mullen,Nila WILLIS Accoun t #: [id number] Status : REG CLI Primar y [...] - Dictat ed By: Miguel Ángel Tenorio 1133 Transc ribed By: Gopal Sullivan 1133 This is privil eged, confid ential inform ation intend ed only for the provid er named. Any use or distri bution by any person other than this provid er is strict ly prohib ited. If you receiv e this report in error, please notify us immedi camillaly at [phone] and return the origin al report to us at the addres s above. Thank- you. [email or web address] [facility] [address], [place], [address] 12/29/2023 14:08:06 01/01/20 24 10/17/2019 DEXA No observ ation record ed. Not Available 12/31 21:35:54 01/01/20 24 11/29/2019 bone densi ty No observ ation record ed. Not Available 12/31 21:37:17 01/01/20 24 01/28/2021 MRI, neck No observ ation record ed. Not Available 12/31 21:37:20 01/01/20 24 10/03/2018 MAMMO charlieg No observ ation record ed. Not Available 12/31 21:37:21 01/01/20 24 11/23/2019 MAMMO charlie catie No observ ation record ed. Not Available 12/31 21:37:21 01/01/20 24 11/19/2020 MAMMO charlieg No observ ation record ed. Not Available [...] Organization Details Recorded Time Nicotine dependen ce 57773011 Active 2009 Problem Code: Z87.891; Problem Code Type: ICD-10; Not Available [facility] 3 04:53:37 Major depressi on, single episode 82322876 Active 200911/11/19 23 - Comments only - Meagan Rubio PA-C - - DEPRESSI ON Well maintain ed on PROZAC 20mg QD Problem Code: F32.9; Problem Code Type: ICD-10; Not Available [facility] 3 04:53:37 Primary malignan t neoplasm of vulva 52373438 Completed 200902/08/2010 Problem Code: 184.4; Problem Code Type: ICD-9; Not Available [facility] 3 04:53:37 Carpal tunnel syndrome 27797055 Completed 200902/08/2010 Not Available [facility] 3 04:53:37 Hyperlip idemia 95676910 Active 200911/11/19 23 - Comments only - Meagan Rubio PA-C - - HYPERLIP IDEMIA To continue on CRESTOR 10mg QD unless change is indicate d by results of today's laborato ry testing Problem Code: E78.5; Problem Code Type: ICD-10; Not Available [facility] 3 04:53:37 Dizzines s 540166343 Completed 200902/08/2010 Not Available [facility] 3 04:53:37 [facility] hyperten kelly 80443815 Active 201111/11/19 23 - Comments only - Meagan Rubio PA-C - - HTN Stable on PROPRANO LOL 10mg BID Problem Code: I10; Problem Code Type: ICD-10; Not Available [facility] 3 04:53:38 Cervical spondylo sis without myelopat hy 546133217 Active 195911/06/19 22 - Comments only - Meagan Rubio PA-C - Patient agrees to reach out to [facility] when she feels in a position to move forward with neurosur gical consult, as carlos alberto d by [facility] as next step in manageme nt. Problem Code: M47.812; Problem Code Type: ICD-10; Not Available [facility] 3 04:53:38 Dysuria 64914223 Completed 201412/04/2014 Problem Code: R30.0; Problem Code Type: ICD-10; Not Available [facility] 3 04:53:38 Adult health examinat ion Active 201411/11/19 23 - Comments only - Meagan Rubio PA-C - Will arrange for mammogra m @ [facility] when due in late November. Problem Code: Z00.00; Problem Code Type: ICD-10; Not Available [facility] 3 04:53:38 Pain in right hip joint 19955141167 9102 Completed 201508/09/2015 07/09/19 16 - Comments only - Meagan Rubio PA-C - Given high insuranc e deductab le, patient hesitant to accept refer to allow to return to PT. Instead, as first line, patient intends to contact PT provider for copy of at-home exercise sheet used in managmen t of contrala teraarti. Otherwis e to continue with OTC NSAIDs, topical analgesi cs, ice, etc. Problem Code: M25.551; Problem Code Type: ICD-10; [address], [place], [address] , [facility]. 3 18:22:45 Palpitat ions 18330402 Active 201511/06/19 22 - Comments only - Meagan Rubio PA-C - Stable on PROPRANO LOL 10mg BID Problem Code: R00.2; Problem Code Type: ICD-10; Not Available [facility] 3 04:53:38 Hearing loss 58068620 Active 2016 Problem Code: H91.90; Problem Code Type: ICD-10; Not Available [facility] 3 04:53:38 Glaucoma 23852042 Active 2017 Problem Code: H40.9; Problem Code Type: ICD-10; Not Available [facility] 3 04:53:38 Disorder of skin and/or subcutan eous tissue 73684984 Completed 201712/21/2017 12/08/19 18 - Comments only - Meagan Rubio PA-C - Will refer patient to dermatol ogsukumar for consider ation towards excision al biopsies Problem Code: L98.9; Problem Code Type: ICD-10; Not Available [facility] 3 04:53:39 Rosacea 963319591 Completed 201712/21/2017 12/08/19 18 - Comments only - Meagan Rubio PA-C - Will trial to treat with RXd METROGEL BID Problem Code: L71.9; Problem Code Type: ICD-10; Not Available [facility] 3 04:53:39 Acquired right hallux valgus 52869534659 4106 Completed 201702/20/2018 02/07/20 18 - Comments only - Meagan Rubio PA-C - As per patient request, will refer to podiatry for treatmen t Problem Code: M20.11; Problem Code Type: ICD-10; Not Available [facility] 3 04:53:39 Allergic rhinitis 13864200 Active 2018 Problem Code: J30.9; Problem Code Type: ICD-10; Not Available [facility] 3 04:53:39 Acute sinusiti s 73889588 Completed 201810/02/2018 09/19/19 19 - Comments only - Meagan Rubio PA-C - Given persiste nt nature of patient' s sxs, will cover with ZITHROMA X as ZPAK Problem Code: J01.90; Problem Code Type: ICD-10; Not Available [facility] 3 04:53:39 Anxiety disorder 204461608 Active 201910/31/19 21 - Comments only - Meagan Rubio PA-C - Mood stable on PROZAC 20mg QD Problem Code: F41.9; Problem Code Type: ICD-10; Not Available [facility] 3 04:53:39 Sleep rest pattern finding 498599648 Active 2019 Not Available [facility] 3 04:53:39 Cellulit is of finger 01583760 Completed 202010/07/2020 10/07/19 21 - Comments only [...] L03.019; Problem Code Type: ICD-10; Not Available [facility] 3 04:53:40 Dizzines s and giddines s 291065262 Completed 202002/04/2021 02/03/20 21 - Comments only - Meagan Rubio PA-C - No improvem ent on ANTIVERT . Patient provided with educatio nal handouts to instruct on self adminste red Torres maneuveu rs. If sxs fail to improve with same, however, will maintain low index for ENT refer. Problem Code: R42; Problem Code Type: ICD-10; Not Available [facility] 3 04:53:40 Nerve root disorder 73719966 Active 2020 Problem Code: M54.10; Problem Code Type: ICD-10; Not Available [facility] 3 04:53:40 Screenin g mammogra phy Active 2021 Problem Code: Z12.31; Problem Code Type: ICD-10; Not Available [facility] 3 04:53:40 Disorder of skin and/or subcutan eous tissue 81804872 Completed 202111/18/2021 11/06/19 22 - Comments only - Meagan Rubio PA-C - After cleansin g the area with alcohol wipe, lesion was treated with multiple rounds of cryother apy using liquid nitrogen , followin g which bandage dressing was applied. Problem Code: L98.9; Problem Code Type: ICD-10; Not Available [facility] 3 04:53:40 Disorder of skin and/or subcutan eous tissue 29407261 Completed 202112/14/2021 12/01/19 - Comments only - Meagan Rubio PA-C - As per patient request, lesion was treated with another round of cryother apy using liquid nitrogen today. If lesion fails to resolve with same, patient agrees to call to obtain refer to ENT/plas tic surgery for more definiti ve excision al BX. F/U PRN. 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 a Completed 201301/12/2023 Not Available [facility] 3 04:53:41 Cervical spondylo sis 298280005 Completed Not Available [facility] 3 04:53:41 Cellulit is of leg, excludin g foot 083839995 Completed 200901/12/2023 Not Available [facility] 3 04:53:41 Partner relation ship problem 55451113611 00 Completed 201509/02/2017 Problem Code: Z63.0; Problem Code Type: ICD-10; Not Available [facility] 3 04:53:41 Acute vaginiti s 34561277 Completed 201409/02/2017 Problem Code: N76.0; Problem Code Type: ICD-10; Not Available [facility] 3 04:53:41 Hyperten sive disorder 05573243 Completed 201101/12/2023 Not Available [facility] 3 04:53:42 Cellulit is 802274217 Completed 200909/02/2017 Problem Code: L03.119; Problem Code Type: ICD-10; [address], [place], [address] , [facility] 4 18:06:37 Human papillom a virus screenin g Completed 201309/02/2017 Problem Code: Z11.51; Problem Code Type: ICD-10; Not Available [facility] 3 04:53:42 Family history of malignan t neoplasm of digestiv e organ 749404114 Completed 200909/02/2017 Problem Code: Z80.0; Problem Code Type: ICD-10; Not Available [facility] 3 04:53:42 Cellulit is of finger 19702551 Completed 201409/02/2017 Problem Code: L03.019; Problem Code Type: ICD-10; Not Available [facility] 3 04:53:42 History of clinical finding in subject 799653817 Completed 200901/12/2023 Not Available [facility] 3 04:53:43 Adjustme nt disorder with mixed emotiona l features 37856780 Completed 200901/12/2023 Problem Code: 309.28; Problem Code Type: ICD-9; Not Available [facility] 3 04:53:43 Acute conjunct ivitis 27933612 Completed 201810/29/2020 Problem Code: H10.30; Problem Code Type: ICD-10; Not Available [facility] 3 04:53:43 Senile hyperker atosis 759780206 Completed 201609/02/2017 Problem Code: L82.1; Problem Code Type: ICD-10; Not Available [facility] 3 04:53:43 Pain in right hip joint 01850032413 9102 Active 202207/09/19 16 - Comments only [...] Problem Code Type: ICD-10; [address], [place], [address] , [facility] 3 18:22:45 Cellulit is 782324863 Active 2023 Problem Code: L03.119; Problem Code Type: ICD-10; [address], [place], [address] , [facility] 4 18:06:37 COVID-19 915814448 Active [address], [place], [address] , [facility] 4 10:50:24 Problem Notes None recorded. Medical Equipment None Reported. Allergies Allergen ID Allergen Name Allergen Category Reaction Reaction Severity Criticality Documentation Date Start Date Code Code System Note Provider Name and Address Organization Details Recorded Time 43054 Product containin g 3-hydroxy -3-methyl glutaryl- coenzyme A reductase inhibitor (product) medicatio n myalgias (muscle pain) mild Not available 02/25/20232011 01181 009 SNOMED myalg ias Not Available [facility] 3 16:06:50 76972 Bactrim medicatio n rash mild Not available 02/25/20232009 17439 9 RxNorm Skin Rash Aller gyRea ction : 'Skin Rash' ; Not Available [facility] 3 16:06:50 74382 Augmentin medicatio n diarrhea mild Not available 02/25/20232011 87255 2 RxNorm diarr hea Not Available [facility] 3 16:06:50 12170 codeine medicatio n nausea mild Not available 02/25/20232009 2670 RxNorm Nause a/Vom iting /Diar oleg Aller gyRea ction : 'Naus ea/Vo mitin g/Eugenia rrhea '; Aller gyCod e: '0040 59646 32'; Aller gyNam e: 'CODE INE'; Aller gyCon ceptT ype: 'NDC' ; Not Available [facility] 3 16:06:51 81469 corn extract food,medi cation nausea Not available Not available 04/13/2023 09681 08 RxNorm [facility] 3 17:32:05 Medications Name Sig [...] Shingrix (PF) 50 mcg/0.5 mL intramusc ular nikunj crook Administ er 10/29 completed Not Available Not Available Not Available Vitals Date Recorded Body height Body mass index (BMI) Body weight Body temperature Oxygen saturation Oxygen saturation in Arterial blood by Pulse oximetry Heart rate Respiratory rate Systolic blood pressure Diastolic blood pressure Provider Name and Address Organization Details Last Updated DateTime 168.91 cm 21.5 kg/m2 65649.9 7 g 98.6 [degF] 99 % 99 % 58 /min 18 /min 118 mm[Hg] 64 mm[Hg] Bethany Guevara MA [facility] 10:19:58 Social History Question Answer Notes LastModified by Organizat ion Details LastModified Time Tobacco Smoking Status Former Smoker KARELY askew [facility] 04/13/2023 17:32:56 When Did You Quit Smoking? 16+yearssince lastcigarette Information not available 04/13/2023 Would You Say [...] Of Your Most Recent Tobacco Screening? 11/22/2023 [email or web address] Information not available 11/22/2023 What Is Your Current Pack Years? 20-29packyear s Information not available 05/11/2023 At What Age Did You Start Smoking Tobacco? 14 Information not available 05/11/2023 How Much Tobacco Do You Smoke? No Information not available 05/11/2023 Has Tobacco Cessation Counseling Been Provided? Yes [email or web address] Information not available 05/18/2023 On What Date Was Tobacco Cessation Counseling Provided? 11/22/2023 [email or web address] Information not available 11/22/2023 How Many Years [...] preservative free, adsorbed 11/30/2021 completed Not Available [facility] 02/25/2023 05:15:02 Tdap 05/31/2011 completed Not Available [facility] 05:15:03 zoster live 10/09/2014 completed Not Available [facility] 02/25/2023 05:15:03 Influenza, split virus, trivalent, preservative 01/21/2016 completed Not Available [facility] 02/25/2023 05:15:03 Influenza, split virus, trivalent, preservative 01/29/2015 completed Not Available [facility] 02/25/2023 05:15:03 Influenza, split virus, quadrivalent, PF 01/28/2020 completed Not Available [facility] 02/25/2023 05:15:03 Influenza, split virus, quadrivalent, preservative 02/01/2017 completed Not Available [facility] 02/25/2023 05:15:03 Influenza, split virus, quadrivalent, preservative 02/06/2018 completed Not Available [facility] 02/25/2023 05:15:03 zoster recombinant 12/07/2017 completed Not Available [facility] 02/25/2023 05:15:03 zoster recombinant 02/20/2018 completed Not Available [facility] 02/25/2023 05:15:03 Influenza, high-dose, quadrivalent, PF 01/21/2021 completed Not Available [facility] 02/25/2023 05:15:04 Influenza, high-dose, quadrivalent, PF 02/01/2022 completed Not Available [facility] 02/25/2023 05:15:04 COVID-19, mRNA, LNP-S, PF, 100 mcg/0.5mL dose or 50 mcg/0.25mL dose 06/23/2020 completed Not Available [facility] 02/25/2023 05:15:04 COVID-19, mRNA, LNP-S, PF, 100 mcg/0.5mL dose or 50 mcg/0.25mL dose 07/21/2020 completed Not Available [facility] 02/25/2023 05:15:04 COVID-19, mRNA, LNP-S, PF, 100 mcg/0.5mL dose or 50 mcg/0.25mL dose 11/04/2021 completed Not Available [facility] 02/25/2023 05:15:04 SARS-COV-2 (COVID-19) vaccine, UNSPECIFIED 02/21/2021 completed Not Available [facility] 02/25/2023 05:15:04 Pneumococcal conjugate PCV20, polysaccharide [id number] conjugate, adjuvant, PF 02/01/2022 completed Not Available [facility] 02/25/2023 05:15:04 COVID-19, mRNA, LNP-S, bivalent, PF, 30 mcg/0.3 mL dose 03/15/2022 completed Not Available [facility] 02/26/20 05:15:04 pneumococcal polysaccharide PPV23 10/09/2014 completed Not Available [facility] 2022 05:15:04 pneumococcal polysaccharide PPV23 01/28/2020 completed Not Available [facility] 2022 05:15:05 COVID-19, mRNA, LNP-S, PF, 50 mcg/0.5 mL 01/24/2023 completed Alanis Allred RN null, [facility] 04/14/2023 14:17:51 Respiratory syncytial virus (RSV) vaccine, unspecified 01/12/2023 completed Alanis Allred RN null, [facility] 04/14/2023 14:18:16 Past Encounters Encounter ID Performer Location Encounter Start Date Encounter Closed Date Diagnosis/Indication Diagnosis SNOMED-CT Code Diagnosis ICD10 Code [id number] CHELITA DAWKINS PA-C [address] [address] 10/28/2023 09:39:01 10/28/2023 11:12:22 COVID-19 484046174 U07.1 Health Concerns Section Related Observation LastModified by Organization Detai ls LastModified Time None Recorded Concern Status LastModified by Organization Details LastModified Time None Recorded Payers Encounter Date Sequence Insurance Name Policy Number Policy Lerma Covered Member ID Lerma Member ID Guarantor Name 10/28/2023 1 [facility] (MEDICARE REPLACEMENT HMO) [id number] Chery Prescott [id number] Chery Prescott Notes Date Note Type Note Provider Name and Address Organization Details Recorded Time 10/28/2023 text/html HPI Notes: Chery is a 68-year-old female who presents with [...] when she was 39. [address], [place], [address], [facility]. 10/28/2023 11:27:01 OBGyn Episode No OBEpisode recorded.
--- OUTSIDE RECORDS SUMMARY | 2024-01-04 19:06 | XMS_ITS | Encounter Summary ---
Author Organization [facility] Address [address] [place] [address] Care Team Providers Care Assistive Technology Specialist Name Role Phone Meagan Christine PA-C Primary Care Provider + Encounter Details Date Type Department Care Team ([facility] st Contact Info) Description 11/23/2023 Lab Requisition [facility] Pathology & Laboratory Medicine - [facility] [address] [place] [address] Outr Resulting Lab, Provider Social History Tobacco [...] Salmonella PCR Negative Negative 11/23/2023 20:17 EDT [facility] Shigella/Enteroin vasive E. coli Negative Negative 11/23/2023 20:17 EDT [facility] HN LAB CAMPYLOBACTER PCR Negative Negative 11/23/2023 20:17 EDT [facility] Shiga Toxin PCR Negative Negative 20:17 EDT [facility] Feces SPECIMEN FROM RECTUM / Unknown 11/22/2023 17:00 EDT 11/23/2023 17:01 EDT Provider Outr Resulting Lab MICROBIOLOGY - GENERAL ORDERABLES [facility] [address] [place] [address] documented in this encounter Visit Diagnoses Not on filedocumented in this encounter Care Teams Assistive Technology Specialist Relationship Specialty Start Date End Date Meagan Christine PA-C [address] [place] [phone] PCP - General 04/18/22 documented as of this encounter
--- OUTSIDE RECORDS SUMMARY | 2024-01-04 19:06 | XMS_ITS | Encounter Summary ---
Author Organization [facility] Address [address] [place] [address] Care Team Providers Care Bottom Brusher Name Role Phone Meagan Christine PA-C Primary Care Provider + Encounter Details Date Type Department Care Team (Late st Contact Info) Description 04/22/2022 Lab Requisition [facility] Pathology & Laboratory Medicine - [address] [address] Richard Fiore MD [address] [place] [address], [address] [place], [place] [id number] Encounter for screening for malignant neoplasm of [...] management options, if applicable. 04/23/2022 16:27 EST [facility] Final Diagnosis A. COLON, 45 CM, POLYP X2: Tubular adenoma. 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 04/23/2022 16:27 [facility] Attestation By the signature below, the attending physician certifies that they have 1) personally conducted a gross and/or microscopic examination of the described specimen(s), and/or personally interpreted the results of laboratory testing of the described specimen(s), and 2) personally rendered or confirmed the above diagnosis. 04/23/2022 16:27 [facility] at 1627 Clinical History Family hx of colon cancer; colon cancer screening 04/23/2022 16:27 [facility] Gross Description A. Received in formalin labelled with proper patient identification (initials R, P) and polyp at 45 cm x2 are two gruber tissues (0.5 x 0.1 x 0.1 cm and 0.3 x 0.2 x 0.1 cm). Entirely submitted in A1. VIANNEY MCGREGOR 04/23/2022 7:41 04/23/2022 16:27 [facility] Performing Lab [facility] 04/23/2022 16:27 [facility] Scanned Images 04/23/2022 16:27 [facility] Tissue ENTIRE COLON / Unknown 04/22/2022 7:49 EST 04/22/2022 19:38 EST Richard Fiore MD PATHOLOGY ORDERABLES [facility] [address] [place] [address] documented in this encounter Visit Diagnoses Diagnosis Encounter for screening for malignant neoplasm of colon Special screening for malignant neoplasms, colon documented in this encounter Care Teams Bottom Brusher Relationship Specialty Start Date End Date Meagan Christine PA-C [address] [place] [address] PCP - General 04/18/22 documented as of this encounter
--- OUTSIDE RECORDS SUMMARY | 2024-01-04 19:06 | XMS_ITS | Encounter Summary ---
Author Organization [facility] Address [address] [place] [address] Care Team Providers Care Label Drier Name Role Phone Unavailable Primary Care Provider Unavailabl e Encounter Details Date Type Department Care Team (Late st Contact Info) Description 06/03/2010 Results Only [facility] Laboratory Services - [facility] [place] [place] [address] [place], [place] [address] Tana Caldera MD [facility] [address] [place], [place] [id number] Social History Tobacco Use Types Packs/Day Years [...] ? REJI SMITH ? Accession #: ? [id number] ? : ? 1955 (Age: 54) ??F [...] MD PATHOLOGY ORDERABLES [facility] [address] [place] [address] documented in this encounter Visit Diagnoses Not on filedocumented in this encounter
--- OUTSIDE RECORDS SUMMARY | 2024-01-04 19:06 | XMS_ITS | Encounter Summary ---
Author Organization [facility] Address [address] [place] [address] Care Team Providers Care Division Plant Engineer Name Role Phone Meagan Christine PA-C Primary Care Provider + Encounter Details Date Type Department Care Team (Late st Contact Info) Description 11/23/2023 Lab Requisition [facility] Pathology & Laboratory Medicine - [address] [id number] Outr Resulting Lab, Provider Social History Tobacco [...] IgA <4.0 <20.0 CU 11/24/2023 11:42 EDT [facility] Comment: A negative result may be due to IgA deficiency and does not rule out celiac disease. Negative: <20.0 CU Weak Positive: 20.0-30.0 CU Positive: >30.0 CU Results were obtained with the [employer] Flash h-tTG IgA chemiluminescent immunoassay. Values obtained with different manufacturers' assay methods may not be used interchangeably. IgA 270 85 - 499 mg/dL 11/24/2023 11:42 EDT [facility] Celiac Disease Interpretation Negative Serology. Celiac disease unlikely. Approximately 10% of patients with celiac disease are seronegative. Patients who are already adhering to a gluten-free diet may also be seronegative. If celiac disease is highly clinically suspected, referral to gastroenterology for additional evaluation is recommended. 11/24/2023 11:42 EDT [facility] Blood VENOUS BLOOD / Unknown 11/22/2023 14:10 EDT 11/23/2023 17:13 EDT Provider Outr Resulting Lab IMMUNOLOGY A ND SEROLOGY ORDERABLES [facility] [address] [place] [address] documented in this encounter Visit Diagnoses Not on filedocumented in this encounter Care Teams Division Plant Engineer Relationship Specialty Start Date End Date Meagan Christine PA-C [address] [place] [phone] PCP - General 04/18/22 documented as of this encounter
--- OUTSIDE RECORDS SUMMARY | 2024-01-04 19:06 | XMS_ITS | Encounter Summary ---
Author Organization [facility] Address [address] [place] [address] Care Team Providers Care Block Placer Name Role Phone Unknown, Provider Primary Care Provider Encounter Details Date Type Department Care Team ([facility] st Contact Info) Description 07/02/2013 Results Only [facility] Laboratory Services - [facility] ([facility] [place] [address] [place] [address] Meagan Christine PA-C [address] [place] [phone] Social History Tobacco Use Types Packs/Day Years [...] ng unformatted reports. Name: ? LUIS REJI J ? Accession #: ? [id number] ? : ? 1955 (Age: 57) ??F [...] types 16,18,31,33,35, 39,45,51,52,56,58, 59,66, and 68 by electrotype finisher mediated amplification. Comments Document reviewed and electronically signed by: ? System Interface ? Report date: 07/09/2013 By the signature above, the attending physician certifies that he/she has personally conducted a gross and/or microscopic examination of the described specimens and rendered or confirmed the above diagnosis. End of Report [facility] 07/02/2013 07/03/2013 Meagan Christine PA-C PATHOLOGY ORDERA BLES [facility] [address] [place] [address] documented in this encounter Visit Diagnoses Not on filedocumented in this encounter Care Teams Block Placer Relationship Specialty Start Date End Date Unknown, Provider, PCP - General 06/17/10 04/17/22 documented as of this encounter
--- OUTSIDE RECORDS SUMMARY | 2024-01-04 19:06 | XMS_ITS | Encounter Summary ---
Author Organization [facility] Address [address] [place] [address] Care Team Providers Care Weather Forcaster Name Role Phone Unknown, Provider Primary Care Provider [phone] Meagan Christine PA-C Primary Care Provider + Encounter Details Date Type Department Care Team (Late st Contact Info) Description 11/19/2020 Lab Requisition [facility] Pathology & Laboratory Medicine - [address] [address] Outr Resulting Lab, Provider Social History Tobacco [...] C Antibody Negative Negative 11/20/2020 9:36 EDT [facility] Blood VENOUS BLOOD / Unknown 11/19/2020 7:17 EDT 11/19/2020 15:33 EDT Provider Outr Resulting Lab CHEMISTRY & BLOOD GAS ORDERABLES [facility] [address] [place] [address] documented in this encounter Visit Diagnoses Not on filedocumented in this encounter Care Teams Weather Forcaster Relationship Specialty Start Date End Date Unknown, Provider, PCP - General 06/17/10 04/17/22 Meagan Christine PA-C [address] [place] [phone] PCP - General 04/18/22 documented as of this encounter
[2024-01-04 20:01] LABS: BUN 26 mg/dL (7-18); CREATININE 0.7 mg/dL (0.55-1.02); Calcium 9.3 mg/dL (8.5-10.1); Calculated LDL 109 mg/dL (<100); Chloride 103 mmol/L (98-107); Cholesterol 202 mg/dL (<200); Estimated GFR 93.56 (mL/min/1.73m2); Glucose 87 mg/dL (74-106); HDL Cholesterol 72 mg/dL (40-60); Hemoglobin A1C 5.4 % (<5.7); Potassium 3.8 mmol/L (3.5-5.1); Sodium 141 mmol/L (136-145); Triglyceride 105 mg/dL (<150)
== END 2024-01-04 19:03 | disposition home or self-care (01) ==
LOC: NCHCN 19:02
PROVIDERS: PCP Physician Assistant Medical; Visit Provider Physician Assistant Medical
DX: E78.5 Hyperlipidemia, unspecified (principal); I10 Essential (primary) hypertension; R73.9 Hyperglycemia, unspecified
CPT/HCPCS: 80048; 80061; 83036

== ENCOUNTER 2024-03-26 16:23 | Outpatient (REF) | payer MEDICARE, SELFPAY ==
[2024-03-29 23:51] LABS: Calprotectin <50.0 mcg/g
== END 2024-03-26 16:24 | disposition home or self-care (01) ==
LOC: LBN 16:23
PROVIDERS: PCP Physician Assistant Medical; Visit Provider Internal Medicine Gastroenterology
DX: K52.9 Noninfective gastroenteritis and colitis, unspecified (principal)
CPT/HCPCS: 83993

== ENCOUNTER 2024-06-11 12:18 | Outpatient (CLI) | payer MEDICARE, SELFPAY ==
--- NOTE | 2024-06-11 | DI.RAD_ITS ---
Exam(s) XR CHEST 2V PA LATERAL EXAM: XR CHEST 2V PA LATERAL CLINICAL HISTORY: R05.3 Chronic cough x 1 mo, remote smoking TECHNIQUE: 2D digital imaging was performed. Two views. COMPARISON: CR LEFT RIBS TO INCLUDE CXR from 05/24/2007 FINDINGS: HEART: Normal size. Aorta: Not dilated. PULMONARY VASCULATURE: Normal. MEDIASTINUM: Unremarkable. LUNGS: Patchy infiltrate noted in the posterior right lower lobe superior segment. The left lung arash ears clear. PLEURAL SPACE: No pleural effusion or pneumothorax. BONE:Unremarkable for age. SOFT TISSUES: Unremarkable. IMPRESSION: right lower lobe pneumonia. DATA REPOSITORY: RADIATION DOSE DELIVERED:
== END 2024-06-11 12:38 ==
LOC: DI 12:27
PROVIDERS: PCP Physician Assistant Medical; Visit Provider Family Medicine
DX: J18.1 Lobar pneumonia, unspecified organism (principal)
CPT/HCPCS: 71046

== ENCOUNTER 2024-08-01 02:17 | Outpatient (CLI) | payer MEDICARE, SELFPAY ==
[2024-08-01 12:03] LABS: Abs Immature Grans 0.02 10^3/uL (0.0-0.06); Absolute Basophil Count 0.05 10^3/uL (0.0-0.2); Absolute Eosinophil Count 0.17 10^3/uL (0.0-0.7); Absolute Lymphocyte Count 1.65 10^3/uL (1.2-3.4); Absolute Monocyte Count 0.66 10^3/uL (0.1-0.8); Absolute Neutrophil Count 3.96 10^3/uL (1.2-6.7); Basophils % 0.8 %; Eosinophils % 2.6 %; HCT 37.1 % (36.0-46.0); HGB 12.2 g/dL (11.2-15.7); Immature Grans % 0.3 %; Lymphocytes % 25.3 %; MCH 32.8 pg (27.0-33.0); MCHC 32.9 % (32.0-36.0); MCV 100 fL (80-95); MPV 8.9 fL (8.0-11.0); Monocytes % 10.1 %; Neutrophils % 60.9 %; Platelet Count 300 10^3/uL (130-400); RBC 3.72 10^6/uL (3.93-5.22); RDW 12.4 % (11.7-14.6); RDW-SD 45.3 fL; WBC 6.51 10^3/uL (4.4-10.8)
[2024-08-01 12:52] LABS: ALT 45 U/L (14-59); AST 31 U/L (15-37); Alkaline Phosphatase 66 U/L (46-116); Anion Gap 5.6 mmol/L (3-11); BUN 31 mg/dL (7-18); Bilirubin, Total 0.5 mg/dL (0.2-1.0); CO2 30.4 mmol/L (21.0-32.0); CREATININE 0.7 mg/dL (0.55-1.02); Calcium 9.5 mg/dL (8.5-10.1); Calculated LDL 90 mg/dL (<100); Chloride 104 mmol/L (98-107); Cholesterol 194 mg/dL (<200); Estimated GFR 93.56 (mL/min/1.73m2); Glucose 108 mg/dL (74-106); HDL Cholesterol 87 mg/dL (>or=50); Sodium 140 mmol/L (136-145); Total Protein 7.6 g/dL (6.4-8.2); Triglyceride 86 mg/dL (<150)
[2024-08-01 21:55] LABS: Rheumatoid Factor <8.6 IU/mL (<12.0)
[2024-08-01 22:01] LABS: D-Dimer (UVM) <150 ng/mL DDU (<=230); PTT (UVM) 31 secs (26-37)
[2024-08-02 10:43] LABS: Antithrombin 3, Funct. 126 % (85-125)
[2024-08-02 10:50] LABS: Factor 8 Assay 196 % (50-150)
[2024-08-02 15:05] LABS: ANA Interpretation Negative (Negative)
[2024-08-02 15:53] LABS: Albumin 61.3 % (55.8-66.1); Albumin g/dL 4.7 g/dL (3.6-5.2); Comment (See Note); Monoclonal Spike 3.7 % (None Seen); Monoclonal Spike g/dL 0.3 g/dL (None Seen); Total Protein 7.7 g/dL (6.3-8.2)
[2024-08-02 18:19] LABS: Myeloperoxidase Ab IgG <0.2 U (>=0.4); Proteinase 3 Ab (PR3) <0.2 U
[2024-08-03 10:32] LABS: LA Cascade Summary (See Note)
[2024-08-03 22:44] LABS: Phospholipid Ab, IgG <9.4 GPL; Phospholipid Ab, IgM <9.4 MPL
[2024-08-04 11:35] LABS: c-ANCA Negative (Negative); p-ANCA Negative (Negative)
[2024-08-04 16:04] LABS: Beta 2 GP1 Ab IgG <9.4 SGU; Beta 2 GP1 Ab IgM <9.4 SMU
[2024-08-08 12:16] LABS: Protein C, Functional >150 % (71-199); Protein S, Functional >150 % (64-147)
[2024-10-01 10:04] LABS: Immunotyping, Serum (See Note)
== END 2024-08-01 02:18 | disposition home or self-care (01) ==
PROVIDERS: PCP Physician Assistant Medical; Visit Provider Student in an Organized Health Care Education/Training Program
DX: R23.1 Pallor (principal)
CPT/HCPCS: 36415; 80053; 80061; 81240; 81241; 82784; 85300; 85303; 85306; 85610; 85613; 85730; 85732; 82595; 83516; 84165; 85025; 85240; 85379; 86038; 86255; 86320; 86431

== ENCOUNTER → 2025-03-18 03:55 | Outpatient (CLI) | payer MEDICARE, SELFPAY ==
--- NOTE | 2025-03-18 16:05 | DI.MAMMO_ITS ---
Exam(s) MAMMO SCREENING EXAM: MAMMO SCREENING CLINICAL HISTORY: SCREENING, Z12.31. TECHNIQUE: Bilateral full field digital CC and MLO mammographic images were obtained with 3D tomosynthesis and utilizing computer aided detection (CAD). COMPARISON: Prior mammograms were reviewed. FINDINGS: There has been no significant change in the appearance and distribution of the fibroglandular tissue which is again noted be heterogeneously dense. There are no obvious new spiculated masses nor malignant appearing microcalcification groups. There is no significant architectural distortion nor skin thickening-retraction. IMPRESSION: Dense bilateral fibroglandular tissue. No radiographic evidence of malignancy. BI-RADS Category 1 - Negative Breast Density - Category C - The breast are heterogeneously dense, which may obscure small masses. Breast density Category C or D implies that the patient has dense breast tissue. Dense breast tissue can make it harder to find cancer on a mammogram. Dense breast tissue is also associated with an increased risk of breast cancer. This information about the result of the mammogram report was provided to the patient to raise their awareness. Use this report when you speak with the patient about their risks for breast cancer, which includes their family history. At that time, you may recommend additional screening tests (Ultrasound or MRI) as these tests may add significant information. A negative radiographic report should not delay biopsy if a dominant or clinically suspicious mass is present. Up to ten percent of cancers are not identified on mammography. A negative report may reinforce clinical impression. Adenosis and dense breasts may obscure an underlying neoplasm. False positive reports average 6 to 10%. Patient will receive a letter notifying them of these results.
== END ==
LOC: DI 03:55
PROVIDERS: PCP Physician Assistant Medical; Visit Provider Physician Assistant Medical
DX: Z12.31 Encounter for screening mammogram for malignant neoplasm of breast (principal); R92.323 Mammographic fibroglandular density, bilateral breasts
CPT/HCPCS: 77063; 77067